=== PATIENT | female | born 1940 | race Caucasian/White ===

== ENCOUNTER 2022-05-23 06:00 | Emergency (ER) | payer MEDICARE, BC, SELFPAY ==
[2022-05-23] VITALS (22 sets, daily range): BP systolic 164–199; BP diastolic 108–147; PULSE 64–104; RESP 16–18; TEMP 36.7; O2SAT 94–97; BMI 18.8
--- NOTE | 2022-05-23 06:41 | CRLHL7_ITS ---
For Patients: As a result of the Cures Act, medical imaging exams and procedure reports are released immediately into your electronic medical record. You may view this report before your referring provider. If you have questions, please contact your health care provider. HISTORY: Chest discomfort. TECHNIQUE: Two views of the chest. COMPARISON: 10/20/2018. FINDINGS: Sternotomy and valve replacement. Probable COPD. No acute lung infiltrate or pulmonary edema. No pneumothorax or pleural effusion. Cardiac size mildly prominent but unchanged. No pulmonary vascular congestion. There are degenerative changes of the spine. IMPRESSION: 1. COPD. 2. No acute lung infiltrate or pulmonary edema. Dictated by Titus Recinos MD @ 05/23/2022 7:25:52 AM Dictated by: Titus Recions MD @ 05/23/2022 07:25:56 (Electronically Signed)
--- NOTE | 2022-05-23 06:47 | ED.ARRPALP ---
HPI - Arrhythmia/Palpitations General Date Seen: 05/23/22 <Estuardo Kahn MD - Last Filed: 05/24/22 21:18> Chief Complaint: Arrhythmia/Palpitations <Estuardo Kahn MD - Last Filed: 05/24/22 21:18> Stated Complaint: Heart palpitations <Estuardo Kahn MD - Last Filed: 05/24/22 21:18> Time Seen by Provider: 05/23/22 06:01 <Estuardo Kahn MD - Last Filed: 05/24/22 21:18> Source: patient <Estuardo Kahn MD - Last Filed: 05/24/22 21:18> Mode of arrival: ambulatory <Estuardo Kahn MD - Last Filed: 05/24/22 21:18> Limitations: no limitations <Estuardo Kahn MD - Last Filed: 05/24/22 21:18> History of Present Illness HPI narrative: Patient is a delightful 81-year-old female who presents here with her for evaluation of a feeling of palpitations and discomfort across her chest she has have for the past hour. She woke up with this this morning, this was atypical for her and she took her morning lisinopril along with 81 mg of aspirin, it persisted than she thought she should come to the hospital she has not noted her pulse is been faster, she did not feel like she might pass out, she does not really have chest pain per se, just a different feeling. She has no coughing wheezing shortness of breath associated with this no fevers chills or sweats also, she has no nausea or sweating also. No past history of any atherosclerotic heart disease she does have a history of aortic valve repair in 2010 and has bovine valve. Known atrial fibrillation per her chart, <Estuardo Kahn MD - Last Filed: 05/24/22 21:18> Duration: constant <Estuardo Kahn MD - Last Filed: 05/24/22 21:18> Severity: mild <Estuardo Kahn MD - Last Filed: 05/24/22 21:18> Context: occurred during rest <Estuardo Kahn MD - Last Filed: 05/24/22 21:18> Associated symptoms: denies other symptoms <Estuardo Kahn MD - Last Filed: 05/24/22 21:18> Related Data Home Medications: Home Medications Medication Instructions Recorded Confirmed aspirin 81 mg tablet,delayed 81 mg PO BID 05/23/22 05/23/22 release (Adult Aspirin Regimen) atorvastatin 10 mg tablet 10 mg PO ONCE 05/23/22 05/23/22 azithromycin 250 mg tablet 500 mg PO PRN 05/23/22 05/23/22 glucosamine-chondroitin 500 mg-400 2 tab PO DAILY 05/23/22 05/23/22 mg tablet (Cosamin DS) lisinopril 10 mg tablet 10 mg PO BID 05/23/22 05/23/22 raloxifene 60 mg tablet 60 mg PO DAILY 05/23/22 05/23/22 Previous Rx's Medication Instructions Recorded apixaban 5 mg (74 tabs) tablets in See Rx Instructions PO .COMPLEX 05/23/22 a dose pack (EliquPenana DVT-PE Treat #74 ea 30D Start) <Estuardo Kahn MD - Last Filed: 05/24/22 21:18> Allergies/Adverse Reactions: Allergies Allergy/AdvReac Type Severity Reaction Status Date / Time amoxicillin AdvReac Rash Verified 05/23/22 06:24 cefuroxime [From Ceftin] AdvReac Hives Verified 05/23/22 06:24 Cephalosporins AdvReac Hives Verified 05/23/22 06:24 diatrizoate meglumine AdvReac itching Verified 05/23/22 06:24 doxycycline AdvReac Nausea Verified 05/23/22 06:24 gadodiamide AdvReac itching Verified 05/23/22 06:24 latex AdvReac Verified 05/23/22 06:17 penicillin V AdvReac Rash Verified 05/23/22 06:24 contrast dye AdvReac Uncoded 05/23/22 06:17 <Estuardo Kahn MD - Last Filed: 05/24/22 21:18> Review of Systems Status of ROS: Reports: 10 or more systems reviewed and unremarkable except as noted in History and below <Estuardo Kahn MD - Last Filed: 05/24/22 21:18> [facility] Medical History: Medical History Aortic stenosis Arthritis Atrial fibrillation Bicuspid aortic valve Colonic polyp HTN (hypertension) <Estuardo Kahn MD - Last Filed: 05/24/22 21:18> Surgical History: Surgical History Aortic valve replaced H/O vein stripping Hx of tonsillectomy Status post ORIF of fracture of ankle <Estuardo Kahn MD - Last Filed: 05/24/22 21:18> Social History: Social History Smoking Status: Never smoker How often do you have a drink containing alcohol: never AUDIT-C Alcohol total score: 0 Non-prescribed substance use: denies use <Estuardo Kahn MD - Last Filed: 05/24/22 21:18> Exam Narrative: Exam Narrative: Patient is seen in room 8 she is wearing a toque, delightful, Patient is speaking normally, no problem with slurring words, oriented x3. Head eyes ears nose and throat exam show equal pupils, no scleral icterus, extraocular muscles are normal, no facial droop, speech is normal, trachea normal and midline. Thyroid normal midline palpable not enlarged. Chest shows symmetrical rise bilaterally, normal auscultation with no wheezes, no increased work of breathing, no overt bruising or lesions seen, no tenderness is noted on auscultation. Heart sounds abnormal with a regular pulse but controlled ventricular rate. no S3-S4, there is murmur, it appears to be along the sternal border. Diastolic 1/6 , no clicks or gallops. Abdomen shows no obvious masses or hepatosplenomegaly, no organomegaly, bowel sounds are normal in all quadrants. No tenderness is noted also in all quadrants. Upper and lower extremities show normal power, normal range of motion, pulses are normal, sensations normal, fine motor movements are normal, pelvis is stable to rocking. Cervical spine shows normal range of motion, and palpably not tender. Thoracic spine shows normal range of motion, and palpably not tender, lumbar spine shows no tenderness to palpation percussion and is otherwise normal range of motion. Skin shows no rashes, petechiae or eccymosis. <Estuardo Kahn MD - Last Filed: 05/24/22 21:18> Const: Vital Signs, click to edit/add: Vital Signs - 24 hr 05/23/22 06:14 05/23/22 06:36 05/23/22 06:50 Temperature 98.0 F Pulse Rate 72 92 Pulse Rate [Left P ulse Oximeter] 76 Respiratory Rate 16 Blood Pressure Blood Pressure [Ri ght Upper Arm] 183/108 H Pulse Oximetry 96 96 95 Oxygen Delivery Me thod Room Air 05/23/22 06:54 05/23/22 07:00 05/23/22 07:01 Temperature Pulse Rate 87 72 76 Pulse Rate [Left P ulse Oximeter] Respiratory Rate Blood Pressure 199/147 H 180/133 H Blood Pressure [Ri ght Upper Arm] Pulse Oximetry 97 96 94 Oxygen Delivery Me thod <Estuardo Kahn MD - Last Filed: 05/24/22 21:18> Vital Signs, click to edit/add: Vital Signs - 24 hr 05/23/22 06:14 05/23/22 06:36 05/23/22 06:50 Temperature 98.0 F Pulse Rate 72 92 Pulse Rate [Left P ulse Oximeter] 76 Respiratory Rate 16 Blood Pressure Blood Pressure [Ri ght Upper Arm] 183/108 H Pulse Oximetry 96 96 95 Oxygen Delivery Me thod Room Air 05/23/22 06:54 05/23/22 07:00 05/23/22 07:01 Temperature Pulse Rate 87 72 76 Pulse Rate [Left P ulse Oximeter] Respiratory Rate Blood Pressure 199/147 H 180/133 H Blood Pressure [Ri ght Upper Arm] Pulse Oximetry 97 96 94 Oxygen Delivery Me thod <Michi Chaidez MD - Last Filed: 05/23/22 10:15> Documenting provider has reviewed patient's vital signs: yes <Estuardo Kahn MD - Last Filed: 05/24/22 21:18> Common normals: no apparent distress <Estuardo Kahn MD - Last Filed: 05/24/22 21:18> Course Vital Signs Vital signs: Initial Vital Signs Temperature 98.0 F 05/23/22 06:14 Temperature Source Temporal Artery Scan 05/23/22 06:14 Pulse Rate 76 05/23/22 06:14 Pulse Rhythm 05/23/22 06:14 Respiratory Rate 16 05/23/22 06:14 Blood Pressure 183/108 H 05/23/22 06:14 Blood Pressure Mean 133 05/23/22 06:14 Blood Pressure Position Supine 05/23/22 06:14 Pulse Oximetry 96 05/23/22 06:14 Oxygen Delivery Method 05/23/22 06:14 Vital Signs Temperature 98.0 F 05/23/22 06:14 Pulse Rate 76 05/23/22 06:14 Respiratory Rate 16 05/23/22 06:14 Blood Pressure 183/108 H 05/23/22 06:14 Pulse Oximetry 96 05/23/22 06:14 Oxygen Delivery Method 05/23/22 06:14 Temperature 98.0 F 05/23/22 06:14 Pulse Rate 76 05/23/22 10:02 Respiratory Rate 18 05/23/22 09:30 Blood Pressure 172/121 H 05/23/22 10:02 Pulse Oximetry 97 05/23/22 10:02 Oxygen Delivery Method 05/23/22 09:30 <Estuardo Kahn MD - Last Filed: 05/24/22 21:18> Initial Vital Signs Temperature 98.0 F 05/23/22 06:14 Temperature Source Temporal Artery Scan 05/23/22 06:14 Pulse Rate 76 05/23/22 06:14 Pulse Rhythm 05/23/22 06:14 Respiratory Rate 16 05/23/22 06:14 Blood Pressure 183/108 H 05/23/22 06:14 Blood Pressure Mean 133 05/23/22 06:14 Blood Pressure Position Supine 05/23/22 06:14 Pulse Oximetry 96 05/23/22 06:14 Oxygen Delivery Method 05/23/22 06:14 Vital Signs Temperature 98.0 F 05/23/22 06:14 Pulse Rate 76 05/23/22 06:14 Respiratory Rate 16 05/23/22 06:14 Blood Pressure 183/108 H 05/23/22 06:14 Pulse Oximetry 96 05/23/22 06:14 Oxygen Delivery Method 05/23/22 06:14 Temperature 98.0 F 05/23/22 06:14 Pulse Rate 76 05/23/22 10:02 Respiratory Rate 18 05/23/22 09:30 Blood Pressure 172/121 H 05/23/22 10:02 Pulse Oximetry 97 05/23/22 10:02 Oxygen Delivery Method 05/23/22 09:30 <Michi Chaidez MD - Last Filed: 05/23/22 10:15> MDM - Arrhythmia/Palpitations MDM Narrative Medical decision making narrative: During the evaluation of this patient I considered multiple differential diagnosis is. The life-threatening differential diagnosis include coronary disease/CA, pulmonary embolism, pneumothorax, pneumonia, and aortic dissection. Other differential diagnosis included but were not limited to pericarditis, myocarditis, chest wall pain, GERD, esophageal rupture, rib fracture contusion, pleurisy, as well as other etiologies. Chads 2 score is 4 <Estuardo Kahn MD - Last Filed: 05/24/22 21:18> During the evaluation of this patient I considered multiple differential diagnosis is. The life-threatening differential diagnosis include coronary disease/CA, pulmonary embolism, pneumothorax, pneumonia, and aortic dissection. Other differential diagnosis included but were not limited to pericarditis, myocarditis, chest wall pain, GERD, esophageal rupture, rib fracture contusion, pleurisy, as well as other etiologies. Chads 2 score is 4 Care for this patient was transferred to ct at the end of Dr. Kahn's shift. Repeat troponin returns negative. This patient is in chronic atrial fibrillation but is not on any anticoagulant therapy. Her rate is controlled. She is not on any rate controlling medications and may need this if she does have rapid ventricular response. I discussed options for anticoagulation and the patient prefers to take Eliquis. This was prescribed for her. She is okay to return home to continue current plans. Dr. Efrain Chaidez <Michi Chaidez MD - Last Filed: 05/23/22 10:15> Medical Records Attestation: I reviewed the patient's medical records. <Estuardo Kahn MD - Last Filed: 05/24/22 21:18> Lab Data Attestation: I reviewed the patient's lab results. <Estuardo Kahn MD - Last Filed: 05/24/22 21:18> Labs: Lab Results 05/23/22 05/23/22 05/23/22 Range/Units 06:41 06:55 06:55 WBC 7.25 (4.50-11.00) K/uL RBC 4.87 (4.00-5.20) m/uL Hgb 14.6 (12.0-16.0) gm/dL Hct 45.1 (33.0-51.0) % MCV 93 (80-100) fL MCH 30 (26-34) pg MCHC 32 (32-36) gm/dL RDW Coeff of Shawn 13.1 (11.5-15.5) % Plt Count 167 (140-440) K/uL Neut % (Auto) 72.5 H (42.0-72.0) % Lymph % (Auto) 17.5 L (20-44) % [place] % (Auto) 6.9 (0.0-11.0) % Eos % (Auto) 2.2 (0.0-7.0) % Baso % (Auto) 0.6 (0.0-3.0) % Neut # (Auto) 5.30 (1.7-7.0) K/uL Lymph # (Auto) 1.30 (0.90-2.90) K/uL [place] # (Auto) 0.50 (0.00-0.90) K/UL Eos # (Auto) 0.16 (0.00-0.50) K/uL Baso # (Auto) 0.04 (0.00-0.30) K/uL INR (0.91-1.10) APTT (23-33) Seconds Sodium Cancelled Potassium Cancelled Chloride Cancelled Carbon Dioxide Cancelled BUN Cancelled Creatinine Cancelled Estimated Creat Clear Cancelled Estimated GFR Cancelled Glucose Cancelled Calcium Cancelled NT-Pro-B Natriuret Pep pg/mL Ethyl Alcohol (0.01-0.03) % SARS-CoV-2 (PCR) (Negative) Influenza Type A (PCR) (Negative) Influenza Type B (PCR) (Negative) RSV (PCR) (Negative) POC Troponin I 0.00 L (0.01-0.04) ng/ml 05/23/22 05/23/22 05/23/22 Range/Units 06:55 06:55 06:55 WBC (4.50-11.00) K/uL RBC (4.00-5.20) m/uL Hgb (12.0-16.0) gm/dL Hct (33.0-51.0) % MCV (80-100) fL MCH (26-34) pg MCHC (32-36) gm/dL RDW Coeff of Shawn (11.5-15.5) % Plt Count (140-440) K/uL Neut % (Auto) (42.0-72.0) % Lymph % (Auto) (20-44) % [place] % (Auto) (0.0-11.0) % Eos % (Auto) (0.0-7.0) % Baso % (Auto) (0.0-3.0) % Neut # (Auto) (1.7-7.0) K/uL Lymph # (Auto) (0.90-2.90) K/uL [place] # (Auto) (0.00-0.90) K/UL Eos # (Auto) (0.00-0.50) K/uL Baso # (Auto) (0.00-0.30) K/uL INR 1.02 (0.91-1.10) APTT 29 (23-33) Seconds Sodium 139 Potassium 3.8 Chloride 106 Carbon Dioxide 28 BUN 15 Creatinine 0.7 Estimated Creat Clear 32.92 Estimated GFR 86 Glucose 93 Calcium 9.4 NT-Pro-B Natriuret Pep 778 pg/mL Ethyl Alcohol < 0.01 L (0.01-0.03) % SARS-CoV-2 (PCR) Negative SARS-CoV-2 (Negative) Influenza Type A (PCR) Negative PCR FLU A (Negative) Influenza Type B (PCR) Negative PCR FLU B (Negative) RSV (PCR) Negative PCR RSV (Negative) POC Troponin I (0.01-0.04) ng/ml 05/23/22 Range/Units 08:40 WBC (4.50-11.00) K/uL RBC (4.00-5.20) m/uL Hgb (12.0-16.0) gm/dL Hct (33.0-51.0) % MCV (80-100) fL MCH (26-34) pg MCHC (32-36) gm/dL RDW Coeff of Shawn (11.5-15.5) % Plt Count (140-440) K/uL Neut % (Auto) (42.0-72.0) % Lymph % (Auto) (20-44) % [place] % (Auto) (0.0-11.0) % Eos % (Auto) (0.0-7.0) % Baso % (Auto) (0.0-3.0) % Neut # (Auto) (1.7-7.0) K/uL Lymph # (Auto) (0.90-2.90) K/uL [place] # (Auto) (0.00-0.90) K/UL Eos # (Auto) (0.00-0.50) K/uL Baso # (Auto) (0.00-0.30) K/uL INR (0.91-1.10) APTT (23-33) Seconds Sodium Potassium Chloride Carbon Dioxide BUN Creatinine Estimated Creat Clear Estimated GFR Glucose Calcium NT-Pro-B Natriuret Pep pg/mL Ethyl Alcohol (0.01-0.03) % SARS-CoV-2 (PCR) (Negative) Influenza Type A (PCR) (Negative) Influenza Type B (PCR) (Negative) RSV (PCR) (Negative) POC Troponin I 0.01 (0.01-0.04) ng/ml <Estuardo Kahn MD - Last Filed: 05/24/22 21:18> Lab Results 05/23/22 05/23/22 05/23/22 Range/Units 06:41 06:55 06:55 WBC 7.25 (4.50-11.00) K/uL RBC 4.87 (4.00-5.20) m/uL Hgb 14.6 (12.0-16.0) gm/dL Hct 45.1 (33.0-51.0) % MCV 93 (80-100) fL MCH 30 (26-34) pg MCHC 32 (32-36) gm/dL RDW Coeff of Shawn 13.1 (11.5-15.5) % Plt Count 167 (140-440) K/uL Neut % (Auto) 72.5 H (42.0-72.0) % Lymph % (Auto) 17.5 L (20-44) % [place] % (Auto) 6.9 (0.0-11.0) % Eos % (Auto) 2.2 (0.0-7.0) % Baso % (Auto) 0.6 (0.0-3.0) % Neut # (Auto) 5.30 (1.7-7.0) K/uL Lymph # (Auto) 1.30 (0.90-2.90) K/uL [place] # (Auto) 0.50 (0.00-0.90) K/UL Eos # (Auto) 0.16 (0.00-0.50) K/uL Baso # (Auto) 0.04 (0.00-0.30) K/uL INR (0.91-1.10) APTT (23-33) Seconds Sodium Cancelled Potassium Cancelled Chloride Cancelled Carbon Dioxide Cancelled BUN Cancelled Creatinine Cancelled Estimated Creat Clear Cancelled Estimated GFR Cancelled Glucose Cancelled Calcium Cancelled NT-Pro-B Natriuret Pep pg/mL Ethyl Alcohol (0.01-0.03) % SARS-CoV-2 (PCR) (Negative) Influenza Type A (PCR) (Negative) Influenza Type B (PCR) (Negative) RSV (PCR) (Negative) POC Troponin I 0.00 L (0.01-0.04) ng/ml 05/23/22 05/23/22 05/23/22 Range/Units 06:55 06:55 06:55 WBC (4.50-11.00) K/uL RBC (4.00-5.20) m/uL Hgb (12.0-16.0) gm/dL Hct (33.0-51.0) % MCV (80-100) fL MCH (26-34) pg MCHC (32-36) gm/dL RDW Coeff of Shawn (11.5-15.5) % Plt Count (140-440) K/uL Neut % (Auto) (42.0-72.0) % Lymph % (Auto) (20-44) % [place] % (Auto) (0.0-11.0) % Eos % (Auto) (0.0-7.0) % Baso % (Auto) (0.0-3.0) % Neut # (Auto) (1.7-7.0) K/uL Lymph # (Auto) (0.90-2.90) K/uL [place] # (Auto) (0.00-0.90) K/UL Eos # (Auto) (0.00-0.50) K/uL Baso # (Auto) (0.00-0.30) K/uL INR 1.02 (0.91-1.10) APTT 29 (23-33) Seconds Sodium 139 Potassium 3.8 Chloride 106 Carbon Dioxide 28 BUN 15 Creatinine 0.7 Estimated Creat Clear 32.92 Estimated GFR 86 Glucose 93 Calcium 9.4 NT-Pro-B Natriuret Pep 778 pg/mL Ethyl Alcohol < 0.01 L (0.01-0.03) % SARS-CoV-2 (PCR) Negative SARS-CoV-2 (Negative) Influenza Type A (PCR) Negative PCR FLU A (Negative) Influenza Type B (PCR) Negative PCR FLU B (Negative) RSV (PCR) Negative PCR RSV (Negative) POC Troponin I (0.01-0.04) ng/ml 05/23/22 Range/Units 08:40 WBC (4.50-11.00) K/uL RBC (4.00-5.20) m/uL Hgb (12.0-16.0) gm/dL Hct (33.0-51.0) % MCV (80-100) fL MCH (26-34) pg MCHC (32-36) gm/dL RDW Coeff of Shawn (11.5-15.5) % Plt Count (140-440) K/uL Neut % (Auto) (42.0-72.0) % Lymph % (Auto) (20-44) % [place] % (Auto) (0.0-11.0) % Eos % (Auto) (0.0-7.0) % Baso % (Auto) (0.0-3.0) % Neut # (Auto) (1.7-7.0) K/uL Lymph # (Auto) (0.90-2.90) K/uL [place] # (Auto) (0.00-0.90) K/UL Eos # (Auto) (0.00-0.50) K/uL Baso # (Auto) (0.00-0.30) K/uL INR (0.91-1.10) APTT (23-33) Seconds Sodium Potassium Chloride Carbon Dioxide BUN Creatinine Estimated Creat Clear Estimated GFR Glucose Calcium NT-Pro-B Natriuret Pep pg/mL Ethyl Alcohol (0.01-0.03) % SARS-CoV-2 (PCR) (Negative) Influenza Type A (PCR) (Negative) Influenza Type B (PCR) (Negative) RSV (PCR) (Negative) POC Troponin I 0.01 (0.01-0.04) ng/ml <Michi Chaidez MD - Last Filed: 05/23/22 10:15> ECG Data Attestation: I personally reviewed and interpreted this ECG as follows: <Estuardo Kahn MD - Last Filed: 05/24/22 21:18> ECG interpretation date: 05/23/22 <Estuardo Kahn MD - Last Filed: 05/24/22 21:18> ECG interpretation time: 07:02 <Estuardo Kahn MD - Last Filed: 05/24/22 21:18> Prior ECG tracings: available for review <Estuardo Kahn MD - Last Filed: 05/24/22 21:18> Interpretation: Atrial fibrillation, with occasional PVCs, ventricular rate controlled at 73, no acute ST wave changes in review from previous EKG I can see from 2018 where the rhythm was sinus, rhythm is changed to atrial fibrillation. <Estuardo Kahn MD - Last Filed: 05/24/22 21:18> Discharge Plan Discharge Clinical Impression: Atrial fibrillation <Estuardo Kahn MD - Last Filed: 05/24/22 21:18> Patient Disposition: Home w/ Parent or Adult <Estuardo Kahn MD - Last Filed: 05/24/22 21:18> Condition: Stable <Estuardo Kahn MD - Last Filed: 05/24/22 21:18> Additional Instructions: Take medication as prescribed. Follow up with MD as needed. Return if worsening symptoms occur. <Estuardo Kahn MD - Last Filed: 05/24/22 21:18> Prescriptions: New Eliquis DVT-PE Treat 30D Start 5 mg (74 tabs) tablets,dose pack See Rx Instructions PO .COMPLEX Qty: 74 0RF Rx Instructions: orally per package directions No Action aspirin [Adult Aspirin Regimen] 81 mg tablet,delayed release (DR/EC) 81 mg PO BID atorvastatin 10 mg tablet 10 mg PO ONCE Label Comments: TAKE ONE TABLET BY MOUTH ONE TIME DAILY azithromycin 250 mg tablet 500 mg PO PRN Rx Instructions: 30-60 mins prior to dental procedure lisinopril 10 mg tablet 10 mg PO BID Label Comments: TAKE 1.5 TABLETS BY MOUTH IN MORNING AND 1 TABLET IN EVENING raloxifene 60 mg tablet 60 mg PO DAILY Label Comments: TAKE ONE TABLET BY MOUTH ONE TIME DAILY glucosamine-chondroitin [Cosamin DS] 500-400 mg tablet 2 tab PO DAILY <Estuardo Kahn MD - Last Filed: 05/24/22 21:18> Follow Up/Referrals: Frannie Allison MD [Primary Care Provider] - <Estuardo Kahn MD - Last Filed: 05/24/22 21:18> Stand Alone Forms: MyHealth Info Instructions <Estuardo Kahn MD - Last Filed: 05/24/22 21:18>
[2022-05-23] MEDS: 0.9 % SODIUM CHLORIDE 500 ML 500 ML IV (06:57)
[2022-05-23] MEDS: ASPIRIN 81 MG TABLET EC PO (06:58)
[2022-05-23] MEDS: ASPIRIN 81 MG TAB.CHEW 162 MG PO (06:58)
[2022-05-23 07:17] LABS: Basophils Absolute Auto 0.04 K/uL (0.00-0.30); Basophils Percent Auto 0.6 % (0.0-3.0); Eosinophils Absolute Auto 0.16 K/uL (0.00-0.50); Eosinophils Percent Auto 2.2 % (0.0-7.0); Hematocrit 45.1 % (33.0-51.0); Hemoglobin* 14.6 gm/dL (12.0-16.0); Immature Granulocytes Abs Auto 0.02 K/uL (0.00-0.30); Immature Granulocytes Pct Auto 0.3 %; Lymphocytes Percent Auto 17.5 % (20-44); Mean Corpuscular HGB Conc 32 gm/dL (32-36); Mean Corpuscular Hemoglobin 30 pg (26-34); Mean Corpuscular Volume 93 fL (80-100); Monocytes Percent Auto 6.9 % (0.0-11.0); Neutrophils Percent Auto 72.5 % (42.0-72.0); Platelet Count* 167 K/uL (140-440); RDW Coefficient of Variation % 13.1 % (11.5-15.5); Red Blood Count 4.87 m/uL (4.00-5.20); White Blood Count* 7.25 K/uL (4.50-11.00)
[2022-05-23 07:20] LABS: Chloride* 106 mmol/L (96-114); Potassium* 3.8 mmol/L (3.6-5.1); Sodium* 139 mmol/L (135-149)
[2022-05-23 07:22] LABS: Creatinine* 0.7 mg/dL (0.5-1.5); Est. Creatinine Clearance* 32.92; Estimated Glomerular Filt Rate 86 ml/min
[2022-05-23 07:23] LABS: Blood Urea Nitrogen* 15 mg/dL (7-30); Calcium* 9.4 mg/dL (8.4-10.6); Carbon Dioxide* 28 mmol/L (20-32); Glucose* 93 mg/dL (60-115)
[2022-05-23 07:32] LABS: INR 1.02 (0.91-1.10)
[2022-05-23 07:33] LABS: Ethanol* < 0.01 % (0.01-0.03); NT Pro B Type NatriureticPept* 778 pg/mL; Partial Thromboplastin Time* 29 Seconds (23-33)
[2022-05-23 07:55] LABS: Slide Review Reflex No
[2022-05-23 08:28] LABS: PCR FLU A Negative PCR FLU A (Negative); PCR FLU B Negative PCR FLU B (Negative); PCR RSV Negative PCR RSV (Negative)
[2022-05-23 08:30] LABS: SARS PCR* Negative SARS-CoV-2 (Negative)
[2022-05-23 09:25] LABS: Troponin, Point-of-Care* 0.01 ng/ml (0.01-0.04)
== END 2022-05-23 10:30 | disposition home or self-care (01) ==
PROVIDERS: Emergency Provider Family Medicine; PCP Family Medicine
DX: I48.20 Chronic atrial fibrillation, unspecified (principal)
CPT/HCPCS: 36415; 71046; 80048; 82077; 83880; 84484; 85025; 85610; 85730; 87502; 87634; 87635; 93005; 99284; 99285; A9270; J7120

== ENCOUNTER 2022-10-04 06:21 | Emergency (ER) | payer MEDICARE, BC, SELFPAY ==
[2022-10-04 06:24] VITALS: BP 139/102; PULSE 92; RESP 16; TEMP 36.3; O2SAT 95
--- NOTE | 2022-10-04 06:45 | ED.GENADULT ---
HPI - General Adult General Time Seen by Provider: 06:45 Date Seen: 10/04/22 Chief complaint: Weakness Stated complaint: weakness/pneumonia Time Seen by Provider: 10/04/22 06:45 Source: patient, family, RN notes reviewed and old records reviewed Mode of arrival: ambulatory Limitations: no limitations History of Present Illness HPI narrative: 82-year-old female who comes in today with generalized weakness. Reports congestion and cough which is been going on for several days, reports increased weakness over the last week or so. Spouse about 1 week ago. Denies chest pain, shortness of breath, nausea, vomiting, diarrhea, urinary symptoms. No focal weakness, no falls. Reports decreased appetite over the last couple of days as well. Related Data Home Medications Medication Instructions Recorded Confirmed aspirin 81 mg tablet,delayed 81 mg PO BID 05/23/22 05/23/22 release (Adult Aspirin Regimen) atorvastatin 10 mg tablet 10 mg PO ONCE 05/23/22 05/23/22 azithromycin 250 mg tablet 500 mg PO PRN 05/23/22 05/23/22 glucosamine-chondroitin 500 mg-400 2 tab PO DAILY 05/23/22 05/23/22 mg tablet (Cosamin DS) lisinopril 10 mg tablet 10 mg PO BID 05/23/22 05/23/22 raloxifene 60 mg tablet 60 mg PO DAILY 05/23/22 05/23/22 Previous Rx's Medication Instructions Recorded apixaban 5 mg (74 tabs) tablets in See Rx Instructions PO .COMPLEX 05/23/22 a dose pack (Eliquis DVT-PE Treat #74 ea 30D Start) Allergies Allergy/AdvReac Type Severity Reaction Status Date / Time amoxicillin AdvReac Rash Verified 05/23/22 06:24 cefuroxime [From Ceftin] AdvReac Hives Verified 05/23/22 06:24 Cephalosporins AdvReac Hives Verified 05/23/22 06:24 diatrizoate meglumine AdvReac itching Verified 05/23/22 06:24 doxycycline AdvReac Nausea Verified 05/23/22 06:24 gadodiamide AdvReac itching Verified 05/23/22 06:24 latex AdvReac Verified 05/23/22 06:17 penicillin V AdvReac Rash Verified 05/23/22 06:24 contrast dye AdvReac Uncoded 05/23/22 06:17 PFSH PFSH Medical History Aortic stenosis Arthritis Atrial fibrillation Bicuspid aortic valve Colonic polyp HTN (hypertension) Surgical History Aortic valve replaced H/O vein stripping Hx of tonsillectomy Status post ORIF of fracture of ankle Social History Smoking Status: Never smoker How often do you have a drink containing alcohol: never AUDIT-C Alcohol total score: 0 Non-prescribed substance use: denies use Exam Narrative: Exam Narrative: General: Well-developed and well-nourished, no acute distress Head: Atraumatic and normocephalic Eyes: Pupils are equal reactive, extraocular motions intact, conjunctiva clear ENT: External nose and ears are normal, posterior pharynx without erythema or exudate Neck: No midline cervical tenderness, full spontaneous range of motion the neck, trachea midline, no adenopathy Heart: Regular rate and rhythm 4/6 systolic murmur Lungs: Clear to auscultation bilaterally without wheezes or crackles Abdomen: Soft, nontender, nondistended with active bowel sounds Musculoskeletal: No tenderness, deformity, or edema Neurologic: Awake, alert, and oriented x3, no gross focal neurologic deficits, cranial nerves intact as tested Psych: Mood and affect are appropriate Skin: No rashes Const: Vital Signs, click to edit/add: Vital Signs - 24 hr 10/04/22 06:24 Temperature 97.3 F L Pulse Rate [Left P ulse Oximeter] 92 Respiratory Rate 16 Blood Pressure [Ri ght Upper Arm] 139/102 H Pulse Oximetry 95 Oxygen Delivery Me thod Room Air Course Course Hospital Course: Patient seen and examined, prior records are reviewed. Patient reports generalized weakness today as well as some cough and congestion. On exam, no focal weakness, lungs are clear, no fever or shortness of breath. Symptoms are most likely related to decreased oral intake, possible upper respiratory infection, and stress/grief reaction. Labs ordered along with IV fluids. Reevaluation(s) Time of Reevaluation #1: 07:18 Reevaluation #1: X-ray independently interpreted by me demonstrates hyperinflation, none no other acute findings. Time of Reevaluation #2: 07:51 Reevaluation #2: Labs independently interpreted by me demonstrate mild hyponatremia, IV normal saline was given. Troponin negative, CBC reassuring with no evidence of leukocytosis or anemia. COVID in urinalysis are pending. Time of Reevaluation #3: 08:12 Reevaluation #3: Urine demonstrates trace blood and ketones. Patient recheck, discussed findings, diagnosis, and plan. COVID influenza are pending but patient is stable for discharge. Vital Signs Vital signs: Initial Vital Signs Temperature 97.3 F L 10/04/22 06:24 Temperature Source Temporal Artery Scan 10/04/22 06:24 Pulse Rate 92 10/04/22 06:24 Pulse Rhythm Regular 10/04/22 06:24 Respiratory Rate 16 10/04/22 06:24 Blood Pressure 139/102 H 10/04/22 06:24 Blood Pressure Mean 114 H 10/04/22 06:24 Blood Pressure Position Sitting 10/04/22 06:24 Pulse Oximetry 95 10/04/22 06:24 Oxygen Delivery Method Room Air 10/04/22 06:24 Vital Signs Temperature 97.3 F L 10/04/22 06:24 Pulse Rate 92 10/04/22 06:24 Respiratory Rate 16 10/04/22 06:24 Blood Pressure 139/102 H 10/04/22 06:24 Pulse Oximetry 95 10/04/22 06:24 Oxygen Delivery Method Room Air 10/04/22 06:24 Temperature 97.3 F L 10/04/22 06:24 Pulse Rate 92 10/04/22 06:24 Respiratory Rate 16 10/04/22 06:24 Blood Pressure 139/102 H 10/04/22 06:24 Pulse Oximetry 95 10/04/22 06:24 Oxygen Delivery Method Room Air 10/04/22 06:24 Medical Decision Making Lab Data Labs: Lab Results 10/04/22 10/04/22 10/04/22 Range/Units 06:49 07:00 07:45 WBC 7.79 (4.50-11.00) K/uL RBC 4.70 (4.00-5.20) m/uL Hgb 14.4 (12.0-16.0) gm/dL Hct 43.0 (33.0-51.0) % MCV 92 (80-100) fL MCH 31 (26-34) pg MCHC 34 (32-36) gm/dL RDW Coeff of Shawn 12.8 (11.5-15.5) % Plt Count 141 (140-440) K/uL Neut % (Auto) 81.0 H (42.0-72.0) % Lymph % (Auto) 7.7 L (20-44) % Bibb % (Auto) 10.7 (0.0-11.0) % Eos % (Auto) 0.0 (0.0-7.0) % Baso % (Auto) 0.3 (0.0-3.0) % Neut # (Auto) 6.30 (1.7-7.0) K/uL Lymph # (Auto) 0.60 L (0.90-2.90) K/uL Bibb # (Auto) 0.80 (0.00-0.90) K/UL Eos # (Auto) 0.00 (0.00-0.50) K/uL Baso # (Auto) 0.02 (0.00-0.30) K/uL Sodium 129 L (135-149) mmol/L Potassium 4.1 (3.6-5.1) mmol/L Chloride 93 L (96-114) mmol/L Carbon Dioxide 27 (20-32) mmol/L BUN 13 (7-30) mg/dL Creatinine 0.7 (0.5-1.5) mg/dL Estimated GFR 86 ml/min Glucose 119 H (60-115) mg/dL Calcium 9.1 (8.4-10.6) mg/dL Magnesium 1.8 (1.5-2.6) mg/dL NT-Pro-B Natriuret Pep 1210 pg/mL Urine Color Yellow (Yellow) Urine Appearance Clear (Clear) Urine pH 5.5 (5.0-8.5) Ur Specific [place] 1.025 (1.000-1.030) Urine Protein 1+ A (Negative) Urine Glucose (UA) Negative (Negative) Urine Ketones 2+ A (Negative) Urine Blood 1+ A (Negative) Urine Nitrite Negative (Negative) Urine Bilirubin Negative (Negative) Urine Urobilinogen 0.2 (0.2-1.0) Ur Leukocyte Esterase Negative (Negative) Urine RBC 2-5 A (0-2) Urine WBC 2-5 (0-5) Ur Squamous Epith Cells Few (None-Few) Urine Bacteria Few A (None) Urine Mucus Few A (None) POC Troponin I 0.01 (0.01-0.04) ng/ml ECG Data Attestation: I personally reviewed and interpreted this ECG as follows: Prior ECG tracings: available for review Interpretation: Performed at 7:21 a.m. demonstrates atrial fibrillation rate 82, diffuse ST depressions in 2, 3, AVF, V4 through V6 with slight nondiagnostic elevation in aVL, rate 82, QTC 448. Compared to prior of May 2022, no acute changes Discharge Plan Discharge Clinical Impression: History of recent stressful life event, Hyponatremia, Weakness Patient Disposition: Home w/ Parent or Adult Condition: Stable Instructions: Hyponatremia (ED), Weakness (ED) Activity Level: Activity as Tolerated Discharge Diet: Regular Prescriptions: No Action aspirin [Adult Aspirin Regimen] 81 mg tablet,delayed release (DR/EC) 81 mg PO BID atorvastatin 10 mg tablet 10 mg PO ONCE Patient Comments: TAKE ONE TABLET BY MOUTH ONE TIME DAILY azithromycin 250 mg tablet 500 mg PO PRN Rx Instructions: 30-60 mins prior to dental procedure lisinopril 10 mg tablet 10 mg PO BID Patient Comments: TAKE 1.5 TABLETS BY MOUTH IN MORNING AND 1 TABLET IN EVENING raloxifene 60 mg tablet 60 mg PO DAILY Patient Comments: TAKE ONE TABLET BY MOUTH ONE TIME DAILY glucosamine-chondroitin [Cosamin DS] 500-400 mg tablet 2 tab PO DAILY Eliquis DVT-PE Treat 30D Start 5 mg (74 tabs) tablets,dose pack See Rx Instructions PO .COMPLEX Qty: 74 0RF Rx Instructions: orally per package directions Follow Up/Referrals: Frannie Allison MD [Primary Care Provider] - Stand Alone Forms: [employer] Info Instructions
--- NOTE | 2022-10-04 06:47 | CRLHL7_ITS ---
For Patients: As a result of the Cures Act, medical imaging exams and procedure reports are released immediately into your electronic medical record. You may view this report before your referring provider. If you have questions, please contact your health care provider. INDICATION: cough, weakness TECHNIQUE: Chest 2 views. COMPARISON: None. FINDINGS: Cardiovascular and mediastinum: Mild cardiomegaly. Postoperative changes from median sternotomy and valve replacement. Lungs and pleural spaces: No focal consolidation. Hyperinflated lungs with interstitial prominence likely related to COPD. No sign of pleural effusion. No pneumothorax. Bones and soft tissues: No significant findings. IMPRESSION: No evidence of acute cardiopulmonary process. Dictated by Noah Rea MD @ 10/04/2022 8:02:56 AM (Electronically Signed)
[2022-10-04 07:19] LABS: Basophils Absolute Auto 0.02 K/uL (0.00-0.30); Basophils Percent Auto 0.3 % (0.0-3.0); Hemoglobin* 14.4 gm/dL (12.0-16.0); Immature Granulocytes Abs Auto 0.02 K/uL (0.00-0.30); Immature Granulocytes Pct Auto 0.3 %; Lymphocytes Percent Auto 7.7 % (20-44); Mean Corpuscular HGB Conc 34 gm/dL (32-36); Mean Corpuscular Hemoglobin 31 pg (26-34); Mean Corpuscular Volume 92 fL (80-100); Monocytes Percent Auto 10.7 % (0.0-11.0); Platelet Count* 141 K/uL (140-440); RDW Coefficient of Variation % 12.8 % (11.5-15.5); White Blood Count* 7.79 K/uL (4.50-11.00)
[2022-10-04 07:20] LABS: Troponin, Point-of-Care* 0.01 ng/ml (0.01-0.04)
[2022-10-04 07:23] LABS: Slide Review Reflex No
--- NOTE | 2022-10-04 07:29 | ED.NURSE ---
pt swabbed for covid
[2022-10-04 07:35] LABS: Chloride* 93 mmol/L (96-114); Potassium* 4.1 mmol/L (3.6-5.1); Sodium* 129 mmol/L (135-149)
[2022-10-04 07:37] LABS: Magnesium* 1.8 mg/dL (1.5-2.6)
[2022-10-04 07:38] LABS: Blood Urea Nitrogen* 13 mg/dL (7-30); Carbon Dioxide* 27 mmol/L (20-32); Creatinine* 0.7 mg/dL (0.5-1.5); Estimated Glomerular Filt Rate 86 ml/min
[2022-10-04 07:39] LABS: Glucose* 119 mg/dL (60-115)
[2022-10-04 07:47] LABS: NT Pro B Type NatriureticPept* 1210 pg/mL
[2022-10-04 07:49] LABS: Calcium* 9.1 mg/dL (8.4-10.6)
[2022-10-04 07:52] LABS: Appearance Urine Clear (Clear); Bilirubin Urine Negative (Negative); Blood Urine 1+ (Negative); Color Urine Yellow (Yellow); Glucose Urine Negative (Negative); Ketones Urine 2+ (Negative); Leukocyte Esterase Urine Negative (Negative); Nitrite Urine Negative (Negative); Protein Urine 1+ (Negative); Specific Gravity Urine 1.025 (1.000-1.030); Urobilinogen Urine 0.2 (0.2-1.0); pH Urine 5.5 (5.0-8.5)
[2022-10-04 08:01] LABS: Bacteria Urine Few; Mucus Urine Few; Squamous Epithelial Cell Urine Few (None-Few)
[2022-10-04 08:09] LABS: PCR FLU A Negative PCR FLU A (Negative); PCR FLU B Negative PCR FLU B (Negative)
[2022-10-04 08:18] LABS: SARS PCR* POSITIVE SARS-CoV-2 (Negative)
[2022-10-04 10:00] VITALS: BP 128/88; PULSE 90; RESP 18; O2SAT 95
--- NOTE | 2022-10-04 10:28 | ED.NURSE ---
dc teaching complete, assisted pt to get dressed. pt resting in bed until son returns.
--- NOTE | 2022-10-04 11:24 | ED.NURSE ---
son has arrived, he would prefer pt be admitted, him and family are very busy and not a good time for pt to get sick. continued to tell pt and son she is not a canidate for admission. pt up to br independent. son asks is there anything you can do to help. pt brought to son's vehicle via wheelchair.
== END 2022-10-04 11:45 | disposition home or self-care (01) ==
PROVIDERS: Emergency Provider Family Medicine; PCP Family Medicine
DX: E87.1 Hypo-osmolality and hyponatremia (principal); R53.1 Weakness
CPT/HCPCS: 36415; 71046; 80048; 81001; 83735; 83880; 84484; 85025; 87086; 87631; 93005; 99284; 99285

== ENCOUNTER 2022-12-01 09:30 | Outpatient (RCR) | payer MEDICARE, BC, SELFPAY ==
--- NOTE | 2022-11-17 12:10 | PT.OPEX ---
PT [facility] Eval PT [facility] Outpatient Eval Start: 11/17/22 08:06 Freq: Status: Active Protocol: Document 11/17/22 08:07 AGUSTINV (Rec: 11/17/22 11:16 KLV [id number]) E-signed By Laura Wakefield, PT Physical Therapy Outpatient Evaluation Insurance Information Recert Due Date 02/11/23 Insurance Name Medicare B,[employer] Medical Diagnosis Right knee primary osteoarthritis Treating Diagnosis Right knee pain, gross LE weakness, antalgic gait Referring Herminio Meyers Subjective Subjective Guadalupe reports to PT with primary complaint of gradual and insidious onset of right knee pain. 11/11/22: corticosteroid injection given and knee brace. Good response to steroid injection. She notes no pain with use of brace and improvement in knee alignment however limited with standing and walking without use of brace. Pain is more located in lateral aspect of knee and occasionally feels like knee will buckle without support of brace. She denies falls. Goals are to be able to do all her activities without brace including walking inside and outside, standing for extended periods, bending, squatting and rolling over in bed without knee pain. She would like to strengthen her knee to prevent it from caving in and prevent need for further injections. Imaging 10/28/22: Weightbearing AP, Lateral and Yale views of the right knee were obtained on 10/28/2022 from [facility], were ordered by another physician, were reviewed by me, and show no acute fractures, avulsions, or intraosseous pathology. No effusions. No signs of AVN . Moderate to severe lateral compartment osteoarthrosis with 90% joint space narrowing , and subchondral sclerosis. Minimal tricompartmental osteophytes. Otherwise, generalized osteopenia Pain Comments 1-2/10 worst Date of Last Physician Visit 11/11/22 Current Work Status Retired Objective Other/Pertinent Objective Knee ROM -R 0-128 -L 0-132 LE Strength (R/L): -Knee Ext: R: 4/5, L: 4+/5 -Knee Flex: R: 4+/5, L: 4+/5 -Hip Abd: R: 4-/5, L: 4/5 -Hip Add: R: 4/5, L: 4/5 -Hip Ext: R: 5/5, L: 5/5 -Hip Flx: R: 4/5, L: 4+/5 Gait: decreased stance time, genu valgus R LE, hip IR Balance: unable without UE support R LE Sit to stand: significant genu valgus positioning R LE, corrects with cuing Palpation: TTP lateral joint line Patellar mobility: WNL no pain Functional Test Performed & Score LEFS: 52/80 Assessment Assessment/Impression Patient is an 82 year old female presenting to physical therapy for evaluation and treatment of right knee pain with referring diagnosis of moderate to severe OA. Patient presents with gross LE weakness, antalgic gait, impaired transitions. These impairments are limiting the patients ability to walk/stand for extended periods, get up from a chair, squat/bend. Patient appears motivated to participate in PT and presents with good prognosis to improve mobility, strength, proprioception and return to functional activities with skilled physical therapy intervention. Primary Functional Limitations walk/stand for extended periods, get up from a chair, squat/bend Plan of Care Rehabilitation Potential Good Physical Therapy Goals In 6 weeks (12/29/22) Pt will be able to walk at least 15 min with minimal gait deviations with <1/10 knee pain in order to ambulate throughout home safely Patient will squat with pain levels < 2/10 displaying good control in order to carry out all ADLs and beef tagger I. In 10 weeks (01/26/23) Pt will exhibit 9 pt improvement in LEFS Outcome measure to demonstrate functional improvement and progress towards goals. Pt will demonstrate at least 4 +/5 strength MMT in glut max & glut med to improve dynamic control with SLS activities and gait. Pt will be able to walk at least 30 min with minimal gait deviations with <1/10 knee pain in order to ambulate throughout community safely Treatment Plan/Direct Interventions Gait Training,Ice/Cold/ Vasopneumatic,Joint Mobilization,Manual Therapy, Neuromuscular Re-ed,Self-Care/ Home Management,Therapeutic Activities,Therapeutic Exercises Frequency/Duration 1x/wk for 4 weeks with additional 4 sessions prn based on progress Patient Will Be Discharged From Therapy Completion of LTG(s), Independent w/HEP, Independently Progressing Evaluation Billing Untimed Code Treatment Minutes 28 Complexity Low Certification Information Initial Certification Date 11/17/22 Ending Certification Date 02/11/23 Provider Signature Shows Agreement With POC & Medical Necessity Physician Signature & Date Requested Please Sign/Date Here Physician Comment/Change : Physician NPI Number #
== END 2022-12-01 12:57 | disposition home or self-care (01) ==
PROVIDERS: PCP Family Medicine; Visit Provider Physician Assistant Surgical
DX: M17.11 Unilateral primary osteoarthritis, right knee (principal); R26.9 Unspecified abnormalities of gait and mobility; R53.1 Weakness; M25.561 Pain in right knee; Z51.89 Encounter for other specified aftercare
CPT/HCPCS: 97110; 97161

== ENCOUNTER 2023-05-01 10:46 | Emergency (ER) | payer MEDICARE, BC, SELFPAY ==
[2023-05-01 10:57] VITALS: BP 159/111; PULSE 78; RESP 22; TEMP 36.3; O2SAT 98; BMI 17.0
[2023-05-01 11:04] VITALS: BP 159/111; PULSE 72; RESP 16; O2SAT 99
--- NOTE | 2023-05-01 11:35 | ED.DIZZY ---
HPI - Dizziness General Chief Complaint: Dizziness/Vertigo Stated Complaint: Dizzy, nausea, suspected heart issue Time Seen by Provider: 05/01/23 10:50 History of Present Illness HPI Narrative: This 82-year-old female comes in reporting an episode of vertigo that came on rather suddenly a couple hours prior to arrival. She had some associated nausea and diaphoresis but did not have chest pain or unilateral weakness. There is no report of speech change. Her family member came over to assist her and now she comes in for evaluation. She states that she feels a little bit of symptoms but very minimal. She does have a history of a valve replacement and has chronic atrial fibrillation on Eliquis. She has had vertigo symptoms in the past. She does not describe any lightheadedness or shortness of breath. Related Data Home Medications Medication Instructions Recorded Confirmed aspirin 81 mg tablet,delayed 81 mg PO BID 05/23/22 11/11/22 release (Adult Aspirin Regimen) atorvastatin 10 mg tablet 10 mg PO ONCE 05/23/22 11/11/22 azithromycin 250 mg tablet 500 mg PO PRN 05/23/22 11/11/22 glucosamine-chondroitin 500 mg-400 2 tab PO DAILY 05/23/22 11/11/22 mg tablet (Cosamin DS) lisinopril 10 mg tablet 10 mg PO BID 05/23/22 11/11/22 raloxifene 60 mg tablet 60 mg PO DAILY 05/23/22 11/11/22 Previous Rx's Medication Instructions Recorded apixaban 5 mg (74 tabs) tablets in See Rx Instructions PO .COMPLEX 05/23/22 a dose pack (Eliquis DVT-PE Treat #74 ea 30D Start) Allergies Allergy/AdvReac Type Severity Reaction Status Date / Time gadodiamide Allergy Intermediate itching Verified 11/11/22 10:57 Cephalosporins Allergy Mild Hives Verified 11/11/22 10:57 penicillin V Allergy Mild Rash Verified 11/11/22 10:57 amoxicillin AdvReac Rash Verified 11/11/22 10:57 cefuroxime [From Ceftin] AdvReac Hives Verified 11/11/22 10:57 diatrizoate meglumine AdvReac itching Verified 11/11/22 10:57 doxycycline AdvReac Nausea Verified 11/11/22 10:57 latex AdvReac Verified 11/11/22 10:57 contrast dye AdvReac Uncoded 11/11/22 10:57 Review of Systems Status of ROS: Reports: 10 or more systems reviewed and unremarkable except as noted in History and below Narrative: Constitutional: No fevers. Eyes: No discharge. No vision changes. HENT: No congestion, no sore throat, no ear pain. Cardiovascular: No chest pain, no palpitations. Respiratory: No shortness of breath, no wheezes, no cough. Gastrointestinal: No abdominal pain, no vomiting, no diarrhea. Genitourinary: No dysuria, no hematuria. Musculoskeletal: Normal range of motion. Skin: No rashes, no pruritis. Neurological: No sensory change, speech change. She reports some generalized weakness. Vertigo symptoms as described above. Endo/Heme/Allergies: No bruising or bleeding. No polydipsia. Pysch: no suicidality, no anxiety, no insomnia. All other systems reviewed and are negative. [facility] Medical History Colonic polyp ?K63.5 - Polyp of colon (ICD-10) Atrial fibrillation ?I48.91 - Unspecified atrial fibrillation (ICD-10) HTN (hypertension) ?I10 - Essential (primary) hypertension (ICD-10) Bicuspid aortic valve ?Q23.1 - Congenital insufficiency of aortic valve (ICD-10) Arthritis ?M19.90 - Unspecified osteoarthritis, unspecified site (ICD-10) Aortic stenosis ?I35.0 - Nonrheumatic aortic (valve) stenosis (ICD-10) Surgical History H/O vein stripping ?Z98.890 - Other specified postprocedural states (ICD-10) Hx of tonsillectomy ?Z90.89 - Acquired absence of other organs (ICD-10) Status post ORIF of fracture of ankle (10/21/18) ?Z98.890 - Other specified postprocedural states (ICD-10) ?Z87.81 - Personal history of (healed) traumatic fracture (ICD-10) 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 - Presence of prosthetic heart valve (ICD-10) Social History Smoking Status: Never smoker Do you use any of these nicotine containing products: None Second hand tobacco smoke exposure: No How often do you have a drink containing alcohol: never How often do you have six or more drinks on one occasion: Never AUDIT-C Alcohol total score: 0 Non-prescribed substance use: denies use Exam Narrative: Exam Narrative: Constitutional: Well-developed, well-nourished, no acute distress. HEENT: Normocephalic, atraumatic. Neck: Normal range of motion. Nontender. Supple. Heart: Regular. No murmurs. Normal rate. Intact distal pulses. Lungs: Clear to auscultation. No chest discomfort. No wheezes, rhonchi, or rales. Abdomen: Normal bowel sounds. Nontender. No rebound tenderness. Genitalia: Deferred. Back: No midline tenderness. Normal range of motion. Extremities: Normal range of motion. No injury. Skin: Intact. No rash. Warm. No erythema or pallor. Neurologic: No altered sensation. No weakness. Alert and oriented. No nystagmus. No vertigo symptoms currently. No facial asymmetry. Tongue is midline. [id number] is normal. No pronator drift. [employer] strength is equal bilaterally. She is able to raise each leg to my hand. Psychiatric: No suicidality. No anxiety or depression. No insomnia. Nursing notes and vitals signs are reviewed. Const: Vital Signs, click to edit/add: Vital Signs - 24 hr 05/01/23 10:57 Temperature 97.3 F L Pulse Rate [Pulse Oximeter] 78 Respiratory Rate 22 Blood Pressure [Le ft Upper Arm] 159/111 H Pulse Oximetry 98 Oxygen Delivery Me thod Room Air Course Vital Signs Vital signs: Initial Vital Signs Temperature 97.3 F L 05/01/23 10:57 Temperature Source Temporal Artery Scan 05/01/23 10:57 Pulse Rate 78 05/01/23 10:57 Pulse Rhythm Irregular 05/01/23 10:57 Respiratory Rate 22 05/01/23 10:57 Blood Pressure 159/111 H 05/01/23 10:57 Blood Pressure Mean 127 H 05/01/23 10:57 Blood Pressure Position Supine 05/01/23 10:57 Pulse Oximetry 98 05/01/23 10:57 Oxygen Delivery Method Room Air 05/01/23 10:57 Vital Signs Temperature 97.3 F L 05/01/23 10:57 Pulse Rate 78 05/01/23 10:57 Respiratory Rate 22 05/01/23 10:57 Blood Pressure 159/111 H 05/01/23 10:57 Pulse Oximetry 98 05/01/23 10:57 Oxygen Delivery Method Room Air 05/01/23 10:57 Temperature 97.3 F L 05/01/23 10:57 Pulse Rate 78 05/01/23 10:57 Respiratory Rate 22 05/01/23 10:57 Blood Pressure 159/111 H 05/01/23 10:57 Pulse Oximetry 98 05/01/23 10:57 Oxygen Delivery Method Room Air 05/01/23 10:57 Medications Administered Medications: Discontinued Medications Generic Name Dose Route Start Last Admin Trade Name Jimq PRN Reason Stop Dose Admin Meclizine HCl 25 mg 05/01/23 11:34 05/01/23 11:41 Meclizine Hcl 25 Mg Tablet PO 05/01/23 11:35 25 mg ONCE ONE Administration Ondansetron HCl 4 mg 05/01/23 11:34 05/01/23 11:41 Ondansetron Odt 4 Mg Tab PO 05/01/23 11:35 4 mg ONCE ONE Administration MDM - Dizziness MDM Narrative Medical decision making narrative: This 82-year-old female comes in with symptoms of vertigo. Her symptoms have completely resolved. She did receive an oral dose of Zofran and meclizine. Her neurologic exam is not showing any unilateral symptoms and is completely normal. EKG shows atrial fibrillation which is not new for her. Labs are acquired and these returned also with reassuring findings. Her white count is slightly elevated but she does not have any fever and does not report any symptoms of an infection. I did discuss the role of CT or MRI imaging of her head but stated that her vertigo symptoms seem to be peripheral and not central. In a process of shared decision making no imaging studies were done at this time. The patient was able to get up and ambulate to the bathroom normally. She is okay to be discharged home. Lab Data Labs: Lab Results 05/01/23 Range/Units 11:44 WBC 14.43 H (4.50-11.00) K/uL RBC 5.01 (4.00-5.20) m/uL Hgb 15.0 (12.0-16.0) gm/dL Hct 46.7 (33.0-51.0) % MCV 93 (80-100) fL MCH 30 (26-34) pg MCHC 32 (32-36) gm/dL RDW Coeff of Shawn 13.0 (11.5-15.5) % Plt Count 163 (140-440) K/uL Neut % (Auto) 84.8 H (42.0-72.0) % Lymph % (Auto) 8.5 L (20-44) % [place] % (Auto) 5.9 (0.0-11.0) % Eos % (Auto) 0.3 (0.0-7.0) % Baso % (Auto) 0.2 (0.0-3.0) % Neut # (Auto) 12.20 H (1.7-7.0) K/uL Lymph # (Auto) 1.20 (0.90-2.90) K/uL [place] # (Auto) 0.90 (0.00-0.90) K/UL Eos # (Auto) 0.00 (0.00-0.50) K/uL Baso # (Auto) 0.00 (0.00-0.30) K/uL Abs Immat Gran (auto) 0.00 (0.00-0.30) K/uL Imm/Tot Granulo (auto) 0.3 % Sodium 137 (135-149) mmol/L Potassium 4.7 (3.6-5.1) mmol/L Chloride 102 (96-114) mmol/L Carbon Dioxide 28 (20-32) mmol/L Anion Gap 7 (7-15) mEq/L BUN 17 (7-30) mg/dL Creatinine 0.6 (0.5-1.5) mg/dL Estimated Creat Clear 30.22 Estimated GFR 89 ml/min Glucose 116 H (60-115) mg/dL Calcium 9.7 (8.4-10.6) mg/dL ECG Data Attestation: I personally reviewed and interpreted this ECG as follows: Interpretation: Atrial fibrillation. Rate is 74 beats per minute. There are no specific ST or T-wave abnormalities. Discharge Plan Discharge Clinical Impression: Acute vestibular neuritis Patient Disposition: Home w/ Parent or Adult Condition: Improved Additional Instructions: Continue current plans. Increase activity as tolerated. Follow up with MD or return if symptoms are recurrent or worsening. Prescriptions: No Action aspirin [Adult Aspirin Regimen] 81 mg tablet,delayed release (DR/EC) 81 mg PO BID atorvastatin 10 mg tablet 10 mg PO ONCE Patient Comments: TAKE ONE TABLET BY MOUTH ONE TIME DAILY azithromycin 250 mg tablet 500 mg PO PRN Rx Instructions: 30-60 mins prior to dental procedure lisinopril 10 mg tablet 10 mg PO BID Patient Comments: TAKE 1.5 TABLETS BY MOUTH IN MORNING AND 1 TABLET IN EVENING raloxifene 60 mg tablet 60 mg PO DAILY Patient Comments: TAKE ONE TABLET BY MOUTH ONE TIME DAILY glucosamine-chondroitin [Cosamin DS] 500-400 mg tablet 2 tab PO DAILY Eliquis DVT-PE Treat 30D Start 5 mg (74 tabs) tablets,dose pack See Rx Instructions PO .COMPLEX Qty: 74 0RF Rx Instructions: orally per package directions Follow Up/Referrals: Frannie Allison MD [Primary Care Provider] - Stand Alone Forms: [email or web address] Info Instructions
[2023-05-01] MEDS: ONDANSETRON ODT 4 MG TAB PO (11:41)
[2023-05-01] MEDS: MECLIZINE HCL 25 MG TABLET PO (11:41)
[2023-05-01 11:51] LABS: Basophils Percent Auto 0.2 % (0.0-3.0); Eosinophils Percent Auto 0.3 % (0.0-7.0); Hematocrit 46.7 % (33.0-51.0); Immature Granulocytes Pct Auto 0.3 %; Lymphocytes Percent Auto 8.5 % (20-44); Mean Corpuscular HGB Conc 32 gm/dL (32-36); Mean Corpuscular Hemoglobin 30 pg (26-34); Mean Corpuscular Volume 93 fL (80-100); Monocytes Percent Auto 5.9 % (0.0-11.0); Neutrophils Percent Auto 84.8 % (42.0-72.0); Platelet Count* 163 K/uL (140-440); Red Blood Count 5.01 m/uL (4.00-5.20); White Blood Count* 14.43 K/uL (4.50-11.00)
--- OUTSIDE RECORDS SUMMARY | 2023-05-01 11:59 | XMS_ITS | Clinical Summary ---
Author Name Unknown Organization [employer] [facility] [employer] [facility] Address [place], [place] [address] Care Team Providers Care Die Engraving Supervisor Name Role Phone Frannie Allison MD Primary Care Prov ider Tonya Norwood MD Unavailable [phone] Allergies Active Allergy Reactions Criticality Noted Date Comments Amoxicillin Rash 09/02/2006 Cefuroxime Hives 09/02/2006 Cephalosporins Hives Low 12/04/2018 Iodinated Contrast Media Itching,Mouth/J aw Spasm 05/21/2008 Pt reports itching in her eyes and a bubbling petroleum feel in her mouth. Diatrizoate Allergen Itching High 12/04/2018 Doxycycline Nausea Only 07/13/2013 Gadodiamide Itching High 12/04/2018 Latex Rash 05/23/2022 Penicillin V Rash Low 12/04/2018 Medications Medication Sig Dispensed Refills Start Date End Date Status MULTIVITAMIN TAB one tablet daily 0 09/02/2006 Ac tive CALCIUM 500 WITH D 500 MG (1,250 MG)-400 UNIT TAB 0 09/06/2007 Active Sodium Chloride-Aloe Vera (AYR SALINE GEL) spry Inhale in the nostril(s). 0 03/01/2014 Active glucosamine-chondr oitin, 500-400 mg, (COSAMIN DS 500/400) 500-400 mg cap Take 2 capsules daily 0 04/01/2014 Active WalkerIndications: Hip pain, left Walker for home use. 1 Device 0 10/02/2016 Active acetaminophen (TYLENOL EXTRA STRGTH) 500 mg tablet Take 1 tablet by mouth every 6 hours if needed. Max acetaminophen dose: 4000mg in 24 hrs. 0 11/06/2018 Active hydrocortisone 2.5% cream apply to the lips twice daily for 2 weeks at a time. repeat as needed for flares 0 05/23/2020 Active Chlorpheniramine-D M 4-30 mg tab Daily as needed 0 Active raloxifene (EVISTA) 60 mg tabletIndications: Osteoporosis, unspecified osteoporosis type, unspecified pathological fracture presence Take 1 Tablet (60 mg) by mouth once daily. HOLD until patient calls 90 Tablet 4 09/08/2022 Active atorvastatin (LIPITOR) 10 mg tabletIndications: Hypercholesteremia Take 1 Tablet (10 mg) by mouth once daily. HOLD until patient calls 90 Tablet 4 09/08/2022 Active dilTIAZem CD (CARDIZEM CD) 120 mg extended release 24 hr capsuleIndications :New onset atrial fibrillation (HC) Take 1 Capsule (120 mg) by mouth once daily. HOLD until patient calls 90 Capsule 3 09/08/2022 Active lisinopriL (PRINIVIL; ZESTRIL) 10 mg tabletIndications: Aortic ectasia (HC) 1.5 tabs in am and 1 tab in evening. HOLD until patient calls 225 Tablet 3 09/08/2022 Active azithromycin (ZITHROMAX) 500 mg tabletIndications: Aortic valve stenosis, severe 1 tab 30-60 min before dental procedure. HOLD until patient calls 1 Tablet 6 09/08/2022 Active apixaban (ELIQUIS) 2.5 mg tabletIndications: Persistent atrial fibrillation (HC) Take 1 Tablet (2.5 mg) by mouth two times daily. 60 Tablet 11 03/16/2023 Active Active Problems Problem Noted Date Diagnosed Date AF (atrial fibrillation) 10/05/2022 Aortic insufficiency 10/05/2022 Aortic stenosis 10/05/2022 Overview: AVR 08/19 Arthritis 10/05/2022 Overview: knee rt--torn menicus, cortisone shot Bicuspid aortic valve 10/05/2022 Overview: echo 09/18. Needs SBE prophylaxis. Mitral insufficiency 10/05/2022 Overview: osteopenia, dexa 2006, off Fosamax 10/14 COVID-19 10/04/2022 Overview: [facility] SBE (subacute bacterial endocarditis) prophylaxi s candidate 08/31/2021 Overview: S/p AVR: Cont ASA and SBE prophylaxis. Aortic ectasia 10/09/2018 HTN (hypertension) 04/09/2013 ACP (advance care planning) 08/03/2011 Overview: Patient has identified Health Care Agent(s): Yes Add Health Care Agents: Yes Health Care Agent(s): Primary Health Care Agent: Shayne King Relationship: Secondary Health Care Agent: Jarvis King Relationship: son work Third agent: Yuri King Relationship: son [phone] Cell Patient has Advance Care Plan Documents (Health Care Directive, POLST): Yes Advance Care Plan Documents: Health Care Directive Patient has identified Specific Treatment Preferences: Yes Specific Treatment Preferences: a.) Code Status: CPR/Attempt Resuscitation b.) Goals of Treatment: Comfort Care. If I reach a point where I am no longer able to make decisions for myself and it is reasonably certain I will not recover my ability to know who I am, then I want comfort care only. Do not intubate but use medication, oxygen, oral suction, and manual clearing of airways, etc. as needed for immediate comfort. Dyslipidemia 07/16/2011 Personal history of colonic polyps 04/22/2011 Overview: Colonoscopy 04/2011 diverticulosis repeat in 5 years Colonoscopy 05/2016 polyp, diverticuli repeat in 5 years Personal history of colonic polyps 04/22/2011 Overview: Colonoscopy 04/2011 diverticulosis repeat in 5 years S/P aortic valve replacement 08/28/2010 Aortic valve stenosis, severe 08/17/2010 Overview: S/p 21 mm Johns aortic tissue valve replacement 08/2010. Echo 06/2014 - 1. Decreased LV size, mildly increased wall thickness, normal global systolic function with an estimated EF of 55 - 60%. 2. Biatrial enlargement. 3. The aortic valve is functioning 21 mm Bovine pericardial tissue Magna, no stenosis and mild regurgitation. Mean gradient 7.4 mmHg. 4. The mitral valve is normal, mild mitral regurgitation. 5. Mild-moderate tricuspid regurgitation. 6. Compared to echo report 06/2012 -- no significant change. Minimal CAD on preoperative angiogram. 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 08/25/2010 10/05/2010 Overview: INR Goal Range: 2.0 - 2.5 Stress hyperglycemia 08/18/2010 014 Bicuspid aortic valve 08/17/20102013 Anemia due to acute blood loss 08/17/2010 01/11/2014 Thrombocytopenia due to extr acorporeal circulation of blood 08/17/2010 08/28/2010 S/P AVR (aortic valve replac ement) 21 JOHNS BOVINE PERICARDIAL TISSUE VALVE 08/17/2010 10/06/19 11 Aortic stenosis 09/17/2009 03/16/2011 Hypertension 09/17/2009 07/16/2011 Bicuspid aortic valve 08/27/20092010 HTN (hypertension) 08/27/2009 0 Encounters Date Type Department Care Team Description 03/15/2023 Refill [facility] [address] [place] [address] Kedar Elizalde MD Refill Request (ELIQUIS ORAL TABLET 2.5 MG) 02/08/2023 10:00 AM CDT Office Visit [facility] [address] [place] [phone] Kedar Elizalde MD Follow Up (Cardiovascular Disease and A fib ) 02/08/2023 Travel 02/03/2023 11:00 AM CDT Ancillary Procedure [facility] [address] [place] [phone] 02/03/2023 Travel from Last 3 Months Immunizations Name Administration Dates Next Due AMB Influenza, IIV3 (Age >=3 years)(Flu Clinic Only) 12/29/2011 COVID-19 vaccine ([facility] 30mcg/0.3mL) PF, MDV 06/07/2020,05/17/2020 Influenza, High-dose Inactivated 019,12/20/2017,12/04/2016,2015,01/01/2015,01/03/2014 Influenza, High-dose Quadriv alent Inactivated 12/11/2021,12/12/2020,11/27/2019 Influenza, IIV3 (Age 6-35 mos) 12/15/2010,2008 Influenza, IIV3 (Age >=3 years) 12/29/2011,12/15,02/10/2004 Influenza, Inactivated IIV3 (Age 65+ Years) Preserv Free 12/20/2017 Pneumococcal Poly,23-Valent (Pneumovax) 09/02/2006 Pneumococcal conj 13-Valent (Prevnar 13) 01/21/2015 Td (Age >=7 Years) 06/24/2005 Td, Preservative Free (age > = 7 Years) 06/24/2005 Tdap 08/25/2020,07/30/2010 Zoster (Shingrix-RZV, recombinant) 03/13/2018, Zoster (Zostavax-ZVL, live) 01/05/2007 Family History Medical History Relation Name Comments Cancer Father stomach Cancer Mother hodgkins Heart Disease Mother chf Hypertension Mother Cancer-breast No Family History Relation Name Status Comments Father Mother Social History Tobacco Use Types Packs/Day Years Used Date Smoking Tobacco: Never Smokeless Tobacco: Never Tobacco Cessation:Counseling Given: Yes Alcohol Use Standard Drinks/Week Comments No 0 (1 standard drink = 0.6 oz pur e alcohol) PHQ-2 Answer Date Recorded PHQ-2 TOTAL SCORE 0 09/08/2022 Social Connections Answer Date Recorded Frequency of Communication with Friends and Fami ly 0 09/08/2022 Financial Resource Strain Answer Date R ecorded Difficulty of Paying Living Expenses 3 09/08/2022 Difficulty of Paying Living Expenses Not on file 09/08/2022 Food Insecurity Answer Date Recorded Worried About Running Out of Food in the Last Ye ar 1 09/08/2022 Transportation Needs Answer Date Record ed Lack of Transportation (Medical) 1 09/08/2022 Housing Stability Answer Date Recorded Unable to Pay for Housing in the Last Year 1 09/08/2022 Sex and Gender Information Value Date Recorded Sex Assigned at Not on file Gender Identity Not on file Sexual Orientation Not on file Obstetrics History Para Term AB IAB SAB Ectopic Multiple Livin g Live Births 2 2 Date Outcome GA Total Labor Labor/2nd/3rd Weight Sex Delivery Anes PTL Juanita A1 A5 Name Cl in Last Filed Vital Signs Vital Sign Reading Time Taken Comments Blood Pressure 163/91 02/08/2023 10:04 AM CDT Pulse 78 02/08/2023 10:04 AM CDT Temperature 36.5 ??C (97.7 ??F) 03/10/2021 10:[address] Respiratory Rate 18 09/16/2020 10:07 AM CDT Oxygen Saturation 99% 02/08/2023 10:04 AM CDT Inhaled Oxygen Concentration - - Weight 44 kg (97 lb) 02/08/2023 10:04 AM CDT Height 157.3 cm (5' 1.93) 09/08/2022 9:34 AM CD T Body Mass Index 17.78 09/08/2022 9:34 AM CDT Plan of Treatment Health Maintenance Due Date Last Done Comments COVID-19 vaccine series ( season) 2022 12/29/2021, 07/27/2021, 01/03/2021, Additional history exists Influenza for age 65+ 12/10/2022 12/11/2021 , 12/12/2020, 11/27/2019, Additional history exists Medicare Wellness for age 65+ 09/08/2023, 08/31/2021, 07/01/2020, Additional history exists BMI (ht and wt on same day) for age 18+ 09/09/2023 09/08/2022, 05/04/2022, 08/31/2021, Additional history exists Depression screening for age 12+ 09/09/2023 09/08/2022, 08/31/2021, 07/01/2020, Additional history exists Tetanus booster 08/25/2030 08/25/2020, 07/11, 06/24/2005, Additional history exists Pneumococcal series for age 65+ Completed 5, 09/02/2006 Zoster (shingles) series for age 50+ Completed 03/13/2018, 12/10/2017, 01/05/2007 Tdap Completed 08/25/2020, 07/30/2010 DEXA/DXA scan for age 65+ Completed 2020, 10/10/2018, 08/30/2016, Additional history exists Medical Devices Implanted Type Area Comic Artist Device Identifier Shelf Expiration Date Model / Serial / Lot Valve Magna [id number] 21 - [id number] Implanted:Qty: 1 on 08/17/2010 at [facility] N/A: Aortic Valve Johns [employer] Torie 10/27/2013 [id number] / [id number] / Procedures Procedure Name Priority Date/Time Associated Diagnosis Comments ECHO TTE COMPLETE WO CONTRAST Routine 02/03/2023 11:38 AM CDT PAF (paroxysmal atrial fibrillation) (HC) from Last 3 Months Results * ECHO TTE COMPLETE WO CONTRAST (02/03/2023 11:38 AM CDT) AORTIC VALVE MEAN PG 15 mmHg EJECTION FRACTION 71 % PEAK TR VELOCITY 2.5 m/s LVEDD 3.0 cm EJECTION FRACTION 65 - 70% Anatomical Region Laterality Modality Ultrasound 02/03/2023 11:1 2 AM CDT Narrative 02/03/2023 4:51 PM CDT ECHOCARDIOGRAM GUADALUPE KING ? Accession#: ?? [id number] : ?1940 82 years Study Date: ?? 02/03/2023 11:12:02 AM Gender: F ?BP: ? 125/81 mmHg Height: 157.00 cm ?BSA: ?1.43 m? ? ? Weight: 46.00 kg ? Tech: ? MHR ? Referring MD: RACHEL CAM Site: ? [facility] [email or web address]] Reading Location: MOBILE OP Patient Location: Outpatient. Procedure: 2D, Color Doppler and Spectral Doppler. Indication for study: paroxismal atrial fibrillation Cardiac Rhythm: Irregular.Study quality: Fair. Final Impressions: 1. Normal LV size, mildly increased wall thickness, estimated EF of 65 - 70%. 2. Severe biatrial enlargement. 3. S/P 21 mm Magna bioprosthesis, no regurgitation. It is difficult to evaluate for stenosis with irregular R-R intervals but there is some degree of degenerative stenosis: Vmax 2.7, MG 15 mmHg, XANDER 0.95 cm? ? ?, DI 0.34, SVi 30.7 ml/m? ? ?, AT 64 msec. 4. Moderate tricuspid regurgitation. Comparison Compared to prior exam of 02/18/2022, there has been no significant change. - All findings are similar Chamber Sizes and Function Normal left ventricular size, mildly increased wall thickness, normal global systolic function with an estimated EF of 65 - 70%. Left atrial size is severely enlarged. Right ventricular cavity size is normal, global systolic RV function is normal. RV wall thickness is normal. The right atrium is severely enlarged. Right atrial volume index is 64 ml/m? ? ?. Right atrial area is 28 cm? ? ?. The pulmonary artery is of normal size and origin. The sinus of Valsalva is normal sized. The ascending aorta is normal sized. Valves, RV Pressures and Diastolic Function The aortic valve is bioprosthesis, moderate stenosis and no regurgitation. The mitral valve is normal in structure, trace mitral regurgitation. Indeterminate pattern of LV diastolic filling. The tricuspid valve is normal in structure. Tricuspid regurgitation is moderate. The tricuspid regurgitant velocity is 2.5 m/s, the estimated right ventricular systolic pressure is 26 mmHg plus right atrial pressure. The pulmonic valve is normal. Mild pulmonary regurgitation. Masses, Effusion, Shunts There is no pericardial effusion. The inferior vena cava is normal sized, respiratory size variation less than 50%. No left to right shunting was detected by limited color flow Doppler interrogation of the interatrial septum. MEASUREMENTS AND CALCULATIONS 2-D Measurements and LV Function: LVID (d) ?3.0 cm LV FS% (2D) ?? 32 % LVID (s) ?2.1 cm LVOT diameter 1.9 cm IVS (d) ? 1.2 cm HR ?80 bpm LVPW (d) ?1.2 cm LA Vol index ??48 ml/m2 Ao Sinus ?3.6 cm RA Vol index ??64 ml/m2 Ao ST junct 3.1 cm RA area ? 28 cm? ? ? Asc Ao ?3.9 cm RV Max 4C (d) 2.4 cm LA ?3.7 cm Aortic Valve: Vmax ? 2.7 m/s ??XANDER (V) ?? 0.86 cm? ? ? VTI ?0.46 m ?? XANDER (I) ?? 0.95 cm? ? ? LVOT V max 0.8 m/s ??Max PG ?29 mmHg LVOT VTI ?? 0.16 m ?? Mean PG ?? 15 mmHg SV ? 44 ml ?Dim Index 0.34 SV index ?? 31 ml/m? ? ? CO ?3.5 l/min ?CI ?2.5 l/min/m? ? ? Tricuspid Valve and estimated PA pressures: TR Vmax 2.5 m/s TAPSE 1.2 cm TR maxG 26 mmHg . This study was interpreted by an [facility] accredited facility. ??Final ?? Procedure Note Yoshi Garnica MD - 02/03/2023 ECHOCARDIOGRAM GUADALUPE KING : 1940 82 years Study Date: 02/03/2023 11:12:02 AM Gender: F BP: 125/81 mmHg Height: 157.00 cm BSA: 1.43 m? ? ? Weight: 46.00 kg Tech: MHR Referring MD: RACHEL CAM Site: [facility] [[email or web address] Reading Location: MOBILE OP Patient Location: Outpatient. Procedure: 2D, Color Doppler and Spectral Doppler. Indication for study: paroxismal atrial fibrillation Cardiac Rhythm: Irregular.Study quality: Fair. Final Impressions: 1. Normal LV size, mildly increased wall thickness, estimated EF of 65 -70%. 2. Severe biatrial enlargement. 3. S/P 21 mm Magna bioprosthesis, no regurgitation. It is difficult toevaluate for stenosis with irregular R-R intervals but there is somedegree of degenerative stenosis: Vmax 2.7, MG 15 mmHg, XANDER 0.95 cm? ? ?, DI0.34, SVi 30.7 ml/m? ? ?, AT 64 msec. 4. Moderate tricuspid regurgitation. Comparison Compared to prior exam of 02/18/2022, there has been no significantchange. - All findings are similar Chamber Sizes and Function Normal left ventricular size, mildly increased wall thickness, normalglobal systolic function with an estimated EF of 65 - 70%. Left atrialsize is severely enlarged. Right ventricular cavity size is normal, globalsystolic RV function is normal. RV wall thickness is normal. The rightatrium is severely enlarged. Right atrial volume index is 64 ml/m? ? ?. Rightatrial area is 28 cm? ? ?. The pulmonary artery is of normal size and origin.The sinus of Valsalva is normal sized. The ascending aorta is normalsized. Valves, RV Pressures and Diastolic Function The aortic valve is bioprosthesis, moderate stenosis and no regurgitation.The mitral valve is normal in structure, trace mitral regurgitation.Indeterminate pattern of LV diastolic filling. The tricuspid valve isnormal in structure. Tricuspid regurgitation is moderate. The tricuspidregurgitant velocity is 2.5 m/s, the estimated right ventricular systolicpressure is 26 mmHg plus right atrial pressure. The pulmonic valve isnormal. Mild pulmonary regurgitation. Masses, Effusion, Shunts There is no pericardial effusion. The inferior vena cava is normal sized,respiratory size variation less than 50%. No left to right shunting wasdetected by limited color flow Doppler interrogation of the interatrialseptum. MEASUREMENTS AND CALCULATIONS 2-D Measurements and LV Function: LVID (d) 3.0 cm LV FS% (2D) 32 % LVID (s) 2.1 cm LVOT diameter 1.9 cm IVS (d) 1.2 cm HR 80 bpm LVPW (d) 1.2 cm LA Vol index 48 ml/m2 Ao Sinus 3.6 cm RA Vol index 64 ml/m2 Ao ST junct 3.1 cm RA area 28 cm? ? ? Asc Ao 3.9 cm RV Max 4C (d) 2.4 cm LA 3.7 cm Aortic Valve: Vmax 2.7 m/s XANDER (V) 0.86 cm? ? ? VTI 0.46 m XANDER (I) 0.95 cm? ? ? LVOT V max 0.8 m/s Max PG 29 mmHg LVOT VTI 0.16 m Mean PG 15 mmHg SV 44 ml Dim Index 0.34 SV index 31 ml/m? ? ? CO 3.5 l/min CI 2.5 l/min/m? ? ? Tricuspid Valve and estimated PA pressures: TR Vmax 2.5 m/s TAPSE 1.2 cm TR maxG 26 mmHg . This study was interpreted by an [facility] accredited facility. 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 [employer] Expl anation Healthcare Directive 07/29/2011 HEALTH CARE DIRECTIVE, [facility], 06/29/2011 Latest Code Status on File Code Status Date Activated Date Inactivated Comments Full Code 08/17/2010 7:24 AM 08/23/2010 2:53 PM Code Status History Code Status Date Activated Date Inactivated Comments Full Code 08/17/2010 5:58 AM 08/17/2010 7:24 AM Full Code 08/14/2010 10:08 AM 08/14/2010 4:25 PM Full Code 08/13/2010 1:26 PM 08/13/2010 1:43 PM Care Teams Die Engraving Supervisor Relationship Specialty Start Date End Date Frannie Allison MD [address] [place] [address] PCP - General Family Practice 03/09/12 Tonya Norwood MD [address] [place] [address] Consulting Physician Cardiovascular Disease 08/29/14
[2023-05-01 12:00] VITALS: PULSE 78; O2SAT 99
[2023-05-01 12:03] LABS: Chloride* 102 mmol/L (96-114); Potassium* 4.7 mmol/L (3.6-5.1); Sodium* 137 mmol/L (135-149)
[2023-05-01 12:06] LABS: Anion Gap 7 mEq/L (7-15); Blood Urea Nitrogen* 17 mg/dL (7-30); Calcium* 9.7 mg/dL (8.4-10.6); Carbon Dioxide* 28 mmol/L (20-32); Creatinine* 0.6 mg/dL (0.5-1.5); Est. Creatinine Clearance* 30.22; Estimated Glomerular Filt Rate 89 ml/min; Glucose* 116 mg/dL (60-115)
[2023-05-01 12:07] LABS: Slide Review Reflex No
[2023-05-01 13:02] VITALS: BP 148/99; PULSE 87; RESP 16; O2SAT 98
[2023-05-01 13:10] VITALS: BP 159/111; PULSE 78; RESP 22; TEMP 36.3
--- NOTE | 2023-05-01 13:20 | ED.NURSE ---
Pt tolerated ambulation to BR well. VSS. Pt reports improvement after meds.
== END 2023-05-01 13:10 | disposition home or self-care (01) ==
PROVIDERS: Emergency Provider Emergency Medicine Emergency Medical Services; PCP Family Medicine
DX: G58.8 Other specified mononeuropathies (principal)
CPT/HCPCS: 36415; 80048; 85025; 93005; 99284; A9270

== ENCOUNTER 2023-07-30 12:12 | Emergency (ER) | payer MEDICARE, BC, SELFPAY ==
[2023-07-30 12:32] VITALS: BP 149/104; PULSE 96; RESP 16; TEMP 36.4; O2SAT 96; BMI 17.9
--- NOTE | 2023-07-30 13:23 | ED_ITS ---
HPI - Ear Problem General Chief complaint: Ear/Nose/Throat Problem Stated complaint: left ear infection Time Seen by Provider: 07/30/23 12:55 History of Present Illness HPI Narrative: This 82-year-old female comes in reporting some pain in her left ear for the past week. She does not report any fevers or nasal congestion. She states that she has an occasional cough. She does not report sore throat or teeth pain. Related Data Home Medications Medication Instructions Recorded Confirmed atorvastatin 10 mg tablet 10 mg PO ONCE 05/23/22 07/30/23 azithromycin 250 mg tablet 500 mg PO PRN 05/23/22 11/11/22 glucosamine-chondroitin 500 mg-400 2 tab PO DAILY 05/23/22 07/30/23 mg tablet (Cosamin DS) lisinopril 10 mg tablet 10 mg PO BID 05/23/22 07/30/23 raloxifene 60 mg tablet 60 mg PO DAILY 05/23/22 07/30/23 diltiazem HCl 120 mg 120 mg PO DAILY 07/30/23 07/30/23 capsule,extended release 24 hr Previous Rx's Medication Instructions Recorded apixaban 5 mg (74 tabs) tablets in See Rx Instructions PO .COMPLEX 05/23/22 a dose pack (Eliquis DVT-PE Treat #74 ea 30D Start) methylprednisolone 4 mg tablets in See Rx Instructions PO .COMPLEX 07/30/23 a dose pack (Medrol (Chele)) #21 ea Allergies Allergy/AdvReac Type Severity Reaction Status Date / Time gadodiamide Allergy Intermediate itching Verified 11/11/22 10:57 Cephalosporins Allergy Mild Hives Verified 11/11/22 10:57 penicillin V Allergy Mild Rash Verified 11/11/22 10:57 amoxicillin AdvReac Rash Verified 11/11/22 10:57 cefuroxime [From Ceftin] AdvReac Hives Verified 11/11/22 10:57 diatrizoate meglumine AdvReac itching Verified 11/11/22 10:57 doxycycline AdvReac Nausea Verified 11/11/22 10:57 latex AdvReac Verified 11/11/22 10:57 contrast dye AdvReac Uncoded 11/11/22 10:57 Review of Systems Status of ROS: Reports: 10 or more systems reviewed and unremarkable except as noted in History and below Narrative: Constitutional: No fevers, no weight gain or loss. Eyes: No discharge. No vision changes. HENT: No congestion, no sore throat, no ear pain. Cardiovascular: No chest pain, no palpitations. Respiratory: No shortness of breath, no wheezes, no cough. Gastrointestinal: No abdominal pain, no vomiting, no diarrhea. Genitourinary: No dysuria, no hematuria. Musculoskeletal: Normal range of motion. Skin: No rashes, no pruritis. Neurological: No dizziness, weakness, sensory change, speech change. She reports some difficulty remembering things at times. Endo/Heme/Allergies: No bruising or bleeding. No polydipsia. Pysch: no suicidality, no anxiety, no insomnia. All other systems reviewed and are negative. [facility] Colonic polyp ?K63.5 - Polyp of colon (ICD-10) Atrial fibrillation ?I48.91 - Unspecified atrial fibrillation (ICD-10) HTN (hypertension) ?I10 - Essential (primary) hypertension (ICD-10) Bicuspid aortic valve ?Q23.1 - Congenital insufficiency of aortic valve (ICD-10) Arthritis ?M19.90 - Unspecified osteoarthritis, unspecified site (ICD-10) Aortic stenosis ?I35.0 - Nonrheumatic aortic (valve) stenosis (ICD-10) Surgical History H/O vein stripping ?Z98.890 - Other specified postprocedural states (ICD-10) Hx of tonsillectomy ?Z90.89 - Acquired absence of other organs (ICD-10) Status post ORIF of fracture of ankle (10/21/18) ?Z98.890 - Other specified postprocedural states (ICD-10) ?Z87.81 - Personal history of (healed) traumatic fracture (ICD-10) 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 - Presence of prosthetic heart valve (ICD-10) Social History Smoking Status: Never smoker Do you use any of these nicotine containing products: None Second hand tobacco smoke exposure: No How often do you have a drink containing alcohol: never How often do you have six or more drinks on one occasion: Never AUDIT-C Alcohol total score: 0 Non-prescribed substance use: denies use Exam Narrative: Exam Narrative: Constitutional: Well-developed, well-nourished, no acute distress. HEENT: Normocephalic, atraumatic. Tympanic membranes are visualized and appear normal bilaterally. Neck: Normal range of motion. Nontender. Supple. Heart: Intact distal pulses. Lungs: No chest discomfort. No wheezes, rhonchi, or rales. Abdomen: Nontender. Back: Normal range of motion. Extremities: Normal range of motion. No injury. Skin: Intact. No rash. Warm. No erythema or pallor. Neurologic: No altered sensation. No weakness. Alert and oriented. Psychiatric: No suicidality. No anxiety or depression. No insomnia. Nursing notes and vitals signs are reviewed. Const: Vital Signs, click to edit/add: Vital Signs - 24 hr 07/30/23 12:32 Temperature 97.6 F Pulse Rate [Pulse Oximeter] 96 Respiratory Rate 16 Blood Pressure [Le ft Upper Arm] 149/104 H Pulse Oximetry 96 Oxygen Delivery Me thod Room Air Course Vital Signs Vital signs: Initial Vital Signs Temperature 97.6 F 07/30/23 12:32 Temperature Source Temporal Artery Scan 07/30/23 12:32 Pulse Rate 96 07/30/23 12:32 Respiratory Rate 16 07/30/23 12:32 Blood Pressure 149/104 H 07/30/23 12:32 Blood Pressure Mean 119 H 07/30/23 12:32 Blood Pressure Position Sitting 07/30/23 12:32 Pulse Oximetry 96 07/30/23 12:32 Oxygen Delivery Method Room Air 07/30/23 12:32 Vital Signs Temperature 97.6 F 07/30/23 12:32 Pulse Rate 96 07/30/23 12:32 Respiratory Rate 16 07/30/23 12:32 Blood Pressure 149/104 H 07/30/23 12:32 Pulse Oximetry 96 07/30/23 12:32 Oxygen Delivery Method Room Air 07/30/23 12:32 Temperature 97.6 F 07/30/23 12:32 Pulse Rate 96 07/30/23 12:32 Respiratory Rate 16 07/30/23 12:32 Blood Pressure 149/104 H 07/30/23 12:32 Pulse Oximetry 96 07/30/23 12:32 Oxygen Delivery Method Room Air 07/30/23 12:32 Medical Decision Making [facility] Narrative Medical decision making narrative: This patient comes in reporting pain in her left ear but her exam is completely normal. She does not appear to have any pharyngitis and reports no dental pain. She may have some eustachian tube dysfunction however the light reflecting off of the tympanic membrane appears normal with out sign of increased or decreased pressure in the mill compartment. The patient has normal vital signs and is okay to return home. She did receive a prescription for Medrol Dosepak which may help with some symptomatic relief. I did describe signs and symptoms that would indicate a need for return and re-evaluation. Discharge Plan Discharge Clinical Impression: Otalgia of left ear Patient Disposition: Home, Self-Care Condition: Stable Additional Instructions: Take medication as prescribed. Follow up with MD or return if worsening. Prescriptions: New methylprednisolone [Medrol (Chele)] 4 mg tablets,dose pack See Rx Instructions .ROUTE .COMPLEX Qty: 21 0RF Rx Instructions: orally per package directions No Action diltiazem HCl 120 mg capsule,extended release 24hr 120 mg PO DAILY atorvastatin 10 mg tablet 10 mg PO ONCE Patient Comments: TAKE ONE TABLET BY MOUTH ONE TIME DAILY azithromycin 250 mg tablet 500 mg PO PRN Rx Instructions: 30-60 mins prior to dental procedure lisinopril 10 mg tablet 10 mg PO BID Patient Comments: TAKE 1.5 TABLETS BY MOUTH IN MORNING AND 1 TABLET IN EVENING raloxifene 60 mg tablet 60 mg PO DAILY Patient Comments: TAKE ONE TABLET BY MOUTH ONE TIME DAILY glucosamine-chondroitin [Cosamin DS] 500-400 mg tablet 2 tab PO DAILY Eliquis DVT-PE Treat 30D Start 5 mg (74 tabs) tablets,dose pack See Rx Instructions PO .COMPLEX Qty: 74 0RF Rx Instructions: orally per package directions Follow Up/Referrals: Frannie Allison MD [Primary Care Provider] - Stand Alone Forms: [facility] Info Instructions
--- OUTSIDE RECORDS SUMMARY | 2023-07-30 13:33 | XMS_ITS | Clinical Summary ---
Author Name Unknown Organization [facility] Address [place], [place] [address] Care Team Providers Care Sales Representative Groceries Name Role Phone Frannie Allison MD Primary Care Prov ider Tonya Norwood MD Unavailable [phone] Allergies Active Allergy Reactions Criticality Noted Date [...] Inhale in the nostril(s). 0 03/01/2014 Active glucosamine-chond roitin, 500-400 mg, (COSAMIN DS 500/400) 500-400 mg cap Take 2 capsules daily 0 04/01/2014 Active WalkerIndications :Hip pain, left Walker for home use. 1 Device 10/02/2016 Active acetaminophen (TYLENOL EXTRA STRGTH) 500 mg tablet Take 1 tablet by mouth every 6 hours if needed. Max acetaminophen dose: 4000mg in 24 hrs. 0 11/06/2018 Active hydrocortisone 2.5% cream apply to the lips twice daily for 2 weeks at a time. repeat as needed for flares 05/23/2020 Active Chlorpheniramine- DM 4-30 mg tab Daily as needed Activ e raloxifene (EVISTA) 60 mg tabletIndications :Osteoporosis, unspecified osteoporosis type, unspecified pathological fracture presence Take 1 Tablet (60 mg) by mouth once daily. HOLD until patient calls 90 Tablet 4 09/08/2022 Active atorvastatin (LIPITOR) 10 mg tabletIndications :Hypercholesterem ia Take 1 Tablet (10 mg) by mouth once daily. HOLD until patient calls 90 Tablet 4 09/08/2022 Active lisinopriL (PRINIVIL; ZESTRIL) 10 mg tabletIndications :Aortic ectasia (HC) 1.5 tabs in am and 1 tab in evening. HOLD until patient calls 225 Tablet 3 09/08/2022 Active azithromycin (ZITHROMAX) 500 mg tabletIndications :Aortic valve stenosis, severe 1 tab 30-60 min before dental procedure. HOLD until patient calls 1 Tablet 6 09/08/2022 Active dilTIAZem CD (CARDIZEM CD) 120 mg extended release 24 hr capsuleIndication s:New onset atrial fibrillation (HC) Take 1 Capsule (120 mg) by mouth once daily. HOLD until patient calls 90 Capsule 3 05/16/2023 Active azithromycin (ZITHROMAX) 250 mg tabletIndications :Aortic valve stenosis, severe TAKE 2 TABLETS (500MG) BY MOUTH 30 - 60 MINUTES PRIOR TO DENTAL PROCEDURE. 6 Tablet 06/01/2023 Active apixaban (ELIQUIS) 2.5 mg tabletIndications :Persistent atrial fibrillation (HC) Take 1 Tablet (2.5 mg) by mouth two times daily. 180 Tablet 1 07/27/2023 Active apixaban (ELIQUIS) 2.5 mg tabletIndications :Persistent atrial fibrillation (HC) Take 1 Tablet (2.5 mg) by mouth two times daily. 60 Tablet 11 05/27/2023 4 Discontinu ed(Reorder (E-cancel not sent)) Active Problems Problem Noted Date Diagnosed Date AF (atrial fibrillation) 10/05/2022 Aortic insufficiency 10/05/2022 Aortic stenosis 10/05/2022 Overview: AVR 5/11 Arthritis 10/05/2022 Overview: knee rt--torn menicus, cortisone shot Bicuspid aortic valve 10/05/2022 Overview: echo 09/18. Needs SBE prophylaxis. Mitral insufficiency 10/05/2022 Overview: osteopenia, dexa 2006, off Fosamax 10/14 COVID-19 10/04/2022 Overview: [facility] SBE (subacute bacterial endocarditis) prophylaxi s candidate 08/31/2021 Overview: S/p AVR: Cont ASA and SBE prophylaxis. 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 08/25/2010 10/05/2010 Overview: [...] Encounters Date Type Department Care Team Description 07/25/2023 [facility]ill [facility] at [address] [id number] Kedar Elizalde MD Refill Request (Eliquis Oral Tablet 2.5mg ) 06/14/2023 2:20 PM TRANSFER AND LINE UP WORKER Nurse/Clinic Staff Only [facility] [address] [place] [address] Blood Pressure 06/14/2023 Telephone [facility] [address] [facility] [address] Frannie Allison MD Blood Pressure 06/14/2023 Travel 06/07/2023 12:50 PM TRANSFER AND [employer] UP WORKER Office Visit [facility] [address] [place] [address] Frannie Allison MD Memory Loss (Concerns about memory issues and confusion and wondering what might be causing it.); Medication Management (Has questions about medications and supplements and if supplements might be too much) 06/07/2023 Travel 06/01/2023 Refill [facility] [address] [place] [address] Frannie Allison MD Refill Request (Azithromycin) 05/16/2023 11:30 AM TRANSFER AND LINE UP WORKER Office Visit [facility] [address] [place] [address] Clare Fierro, [facility] F/U (dizziness) 05/16/2023 Travel from Last 3 Months Immunizations Name Administration Dates Next Due AMB Influenza, IIV3 (Age >=3 years)(Flu Clinic Only) 12/29/2011 COVID-19 vaccine ([employer] 30mcg/0.3mL) PF, MDV 06/07/2020,05/17/2020 Influenza, High-dose Inactivated [...] Sign Reading Time Taken Comments Blood Pressure 142/96 06/14/2023 2:33 PM TRANSFER AND [employer] WORKER Pulse 60 06/14/2023 2:33 PM TRANSFER AND [employer] UP WORKER Temperature 36.5 ??C (97.7 ??F) 03/10/2021 10:[address] Respiratory Rate 18 09/16/2020 10:07 AM CDT Oxygen Saturation 96% 06/07/2023 1:11 PM TRANSFER AND [employer] UP WORKER Inhaled Oxygen Concentration - - Weight 48.2 kg (106 lb 3.2 oz) 06/07/2023 1:11 P M [employer] AND [employer] WORK[employer] Height 160 cm (5' 3) 06/07/2023 1:11 PM TRANSFER AND [employer] UP WORKER Body Mass Index 18.81 06/07/2023 1:11 PM TRANSFER AND [employer] UP WORKER Plan of Treatment Health Maintenance Due Date Last Done Comments Depression screening for age 12+ 09/09/2023 09/08/2022, 08/31/2021, 07/01/2020, Additional history exists Medicare Wellness for age 65+ 09/09/2023, 08/31/2021, 07/01/2020, Additional history exists Influenza for age 65+ 12/11/2023 12/11/2021 , 12/12/2020, 11/27/2019, Additional history exists BMI (ht and wt on same day) for age 18+ 06/07/2024 06/07/2023, 09/08/2022, 05/04/2022, Additional history exists Tetanus booster 08/25/2030 08/25/2020, 07/11, 06/24/2005, Additional history exists Pneumococcal series for age 65+ Completed 5, 09/02/2006 Zoster (shingles) series for age 50+ Completed 03/13/2018, 12/10/2017, 01/05/2007 Tdap Completed 08/25/2020, 07/30/2010 DEXA/DXA scan for age 65+ Completed 2020, 10/10/2018, 08/30/2016, Additional history exists COVID-19 vaccine series Completed 03/08/20, 12/29/2021, 07/27/2021, Additional history exists Medical Devices Implanted Type Area Online Merchandising Specialist Device Identifier Shelf Expiration Date Model / Serial / Lot Valve Magna [id number] Sz 21 - [id number] Implanted:Qty: 1 on 08/17/2010 at [facility] N/A: Aortic Valve [employer] Torie 10/27/2013 [id number] / [id number] / Procedures Procedure Name Priority Date/Time Associated Diagnosis Comments XR DXA BONE DENSITY 2 SITES AXIAL Routine 10/16/2020 10:57 AM CDT Osteoporosis, unspecified osteoporosis type, unspecified pathological fracture presence from Last 3 Months or Most Recently Relevant to Health Maintenance Results * (ABNORMAL) XR DXA BONE DENSITY 2 SITES AXIAL (10/16/2020 10:57 AM CDT) Anatomical Region Laterality Modality Spine, HIPS, HIPL, HIPR Other Impressions 10/21/2020 2:23 PM CDT Osteoporosis. RECOMMENDATIONS: The National Osteoporosis Foundation recommends pharmacologic treatment for patients with T-scores of -2.5 or less, patients with prior history of fragility fractures, or patients with 10-year probability of greater than 3% at hips or greater than 20% of suffering major osteoporotic fractures. Recommend continued optimization of calcium and vitamin D intake through dietary means and/or supplementation and regular exercise. Continue current Raloxifene (Evista) medication treatment. Nedra Salinas PA-C [facility] 10/21/2020 Narrative 10/21/2020 2:23 PM CDT XR DXA Bone Mineral Density (BMD) EXAM LOCATION: [address] [address] PATIENT NAME: Guadalupe Deng DATE OF : 1940 EXAM DATE: 10/16/2020 REQUESTING PROVIDER: Frannie Allison MD GENDER AT : female HEIGHT: 5' 2 (07/01/2020) WEIGHT: ??119 lb (09/16/2020) MENOPAUSAL STATUS: Postmenopausal RACE/ETHNICITY: White RISK FACTORS: Weight < 127 lbs. and White Race CURRENT MEDICATION FOR BONE LOSS: Raloxifene (Evista) INDICATION: Follow-up of existing osteopenia COMPARISON DATE(S): 2018 DXA scans are compared to prior studies for a patient only when the two (or more) studies were performed on the same scanner. It is not possible to compare data generated on one scanner to data from another because there are not standards in DXA equipment. This applies even if the two scanners are made by the same elastic attacher chainstitch. PROCEDURE: Dual-energy x-ray absorptiometry performed with routine technique. Reporting is completed in the form of a T-score. The T-score represents the standard deviation from peak bone mass based on young healthy adult. A Z-score is used for diagnosis in premenopausal women, and for men under the age of 50. FINDINGS: RESULT LUMBAR SPINE L1 - L4 BMD: 0.948 g/cm2 T-Score: - 1.9 Z-Score: + 0.3 Comparison to most recent scan ??in 2019: ??Increase 3.5%. RESULT FEMORAL NECK Left Total Femoral Neck BMD: 0.727 g/cm2 T-Score: - 2.2 Z-Score: + 0.2 RESULT TOTAL HIP Bilateral Total Hip BMD: 0.681 g/cm2 T-Score: - 2.6 Z-Score: - 0.2 Comparison to most recent scan ??in 2019: ??Decrease -2.0%. 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 Expl anation Healthcare Directive 07/29/2011 HEALTH CARE DIRECTIVE, [facility], 06/29/2011 * Full Code (Latest Code Status on File) Date Activated Date Inactivated Comments 08/17/2010 7:24 AM 08/23/2010 2:53 PM * Full Code Date Activated Date Inactivated Comments 08/17/2010 5:58 AM 08/17/2010 7:24 AM * Full Code Date Activated Date Inactivated Comments 08/14/2010 10:08 AM 08/14/2010 4:25 PM * Full Code Date Activated Date Inactivated Comments 08/13/2010 1:26 PM 08/13/2010 1:43 PM Care Teams Sales Representative Groceries Relationship Specialty Start Date End Date Frannie Allison MD [address] [place] [address] PCP - General Family Practice 03/09/12 Tonya Norwood MD [address] [place] [address] Consulting Physician Cardiovascular Disease 08/29/14
== END 2023-07-30 13:38 | disposition home or self-care (01) ==
LOC: ED 13:31
PROVIDERS: Emergency Provider Emergency Medicine Emergency Medical Services; PCP Family Medicine
DX: H92.02 Otalgia, left ear (principal)
CPT/HCPCS: 99282; 99283; 99284

== ENCOUNTER 2024-03-05 09:41 | Outpatient (CLI) | payer MEDICARE, BC, SELFPAY ==
--- OUTSIDE RECORDS SUMMARY | 2024-03-07 00:33 | XMS_ITS | Clinical Summary ---
Author Organization [facility] Address [place], [place] [address] Care Team Providers Care Laborer Orchard Name Role Phone Frannie Allison MD Primary Care Prov ider Tonya Norwood MD Unavailable [phone] Joie Magdaleno PharmD Unavailable Allergies Active Allergy Reactions Criticality Noted Date [...] off Fosamax 10/14 COVID-19 10/04/2022 Overview (10/05/2022): [facility] Emergency Room SBE (subacute bacterial endocarditis) prophylaxi s candidate 08/31/2021 Overview (08/31/2021): S/p AVR: Cont ASA and SBE prophylaxis. Aortic ectasia 10/09/2018 HTN (hypertension) 04/09/2013 ACP (advance care planning) 08/03/2011 Overview (08/03/2011): Patient has identified Health Care Agent(s): Yes Add Health Care Agents: Yes Health Care Agent(s): Primary Health Care Agent: Shayne Deng Relationship: Secondary Health Care Agent: Jarvis Ish Relationship: son work Third agent: Yuri Deng Relationship: son [phone] Cell Patient has Advance Care Plan Documents [...] atrial fibrillation 11/06/2018 08/31/2021 Polyuria 10/26/2010 09/26/2013 [facility] (current) use of anticoagulants 08/25/2010 10/05/2010 Overview [...] Encounters Date Type Department Care Team Description 03/05/2024 Orders Only [facility] Scanner 1 scan: (1-Ord) [place], [place] CERVICAL SPINE WO CON, 03/05/2024 03/05/2024 Telephone [facility] [address] [place] [address] Frannie Allison MD Blood Pressure 01/26/2024 Patient Outreach [facility] Management - Advanced Care Team [address] [place] [address] Tamara De La Garza Medication Management (COMPREHENSIVE MEDICATION REVIEW - PROVIDER REFERRAL - ACO REACH) 01/24/2024 Refill [facility] [address] [place] [address] Frannie Allison MD Refill Request (Alendronate, Oyster Shell Calcium-vit D3, Lisinopril, Eliquis, Atorvastatin) 12/14/2023 10:20 AM CDT Office Visit [facility] [address] [place] [address] Frannie Allison MD Medicare ANNUAL (subsequent) Visit (83 yo) 12/14/2023 Travel from Last 3 Months Immunizations Name Administration Dates Next Due AMB Influenza, IIV3 (Age >=3 years)(Flu Clinic Only) 12/29/2011 COVID-19 vaccine ([employer] NTech 30mcg/0.3mL) JOSE LUIS ALVARADO 06/07/2020,05/17/2020 Influenza, High-dose [...] 36.5 C (97.7 F) 03/10/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 Rate 18 09/16/2020 10:07 AM CDT [...] history exists Medical Devices Implanted Type Area Implementation Specialist Payroll Device Identifier Shelf Expiration Date Model / Serial / Lot Valve Magna 3000tfx 21 - [id number] Implanted:Qty: 1 on 08/17/2010 at [facility] N/A: Aortic Valve [employer] Torie 10/27/2013 [id number] / [id number] / Procedures Procedure Name Priority Date/Time Associated Diagnosis Comments SCAN-CT INTERPRETATION 12:00 AM 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 SUPERVISOR LIPID PANEL W REFLEX MEASURED LDL Routine 12/14/2023 11:35 AM CDT Dyslipidemia BASIC METABOLIC PANEL Routine 12/14/2023 11:35 AM CDT HTN (hypertension) XR DXA BONE DENSITY 2 SITES AXIAL Routine 09/22/2023 11:32 AM CDT Osteoporosis, unspecified osteoporosis type, unspecified pathological fracture presence from Last 3 Months or Most Recently Relevant to Health Maintenance Results * SCAN-CT INTERPRETATION (03/05/2024 12:00 AM GRADING SUPERVISOR) Anatomical Region Laterality Modality Other Scanner OTHER * LIPID PANEL W REFLEX MEASURED LDL (12/14/2023 11:35 AM CDT) CHOLESTEROL,TOTAL 143 100 - 199 mg/dL 12/14/2023 11:26 PM CDT [facility] [employer] LABORATORY-[facility] TRAL [facility]ORY Comment: Cholesterol, Total Reference Ranges Desirable <200 mg/dL Borderline 200-239 mg/dL High >=240 mg/dL TRIGLYCERIDES 102 <150 mg/dL 12/14/2023 11:26 PM CDT [facility] [employer] LABORATORY-[facility] TRAL [facility] HDL CHOLESTEROL 59 >40 mg/dL 11:26 PM CDT [facility] TRAL [facility] NON-HDL CHOLESTEROL 84 <145 mg/dl 12/14/2023 11:26 PM CDT [facility] TRAL LAB[facility]ATORY CHOL/HDL RATIO 2.42 <4.50 12/14/2023 11:26 PM CDT [facility] TR[facility] LDL CHOLESTEROL 64 <=130 mg/dL 12/14/2023 11:26 PM CDT [facility] TRAL LAB[facility] VLDL CHOLESTEROL 20 <=30 mg/dL 12/14/2023 11:26 PM CDT [facility] TRAL LAB[facility]ATORY PROVIDER ORDERED STATUS RANDOM 12/14/2023 11:26 PM CDT [facility] TRA LABORATORY Blood BLOOD SPECIMEN / Unknown Venipuncture / Unknown 12/14/2023 11:35 AM CDT 12/14/2023 11:35 AM CDT Frannie Allison MD CHEMISTRY [facility] [address] [place] [address], * (ABNORMAL) BASIC METABOLIC PANEL (12/14/2023 11:35 AM CDT) SODIUM 136 136 - 145 mmol/L 12/14/2023 11:26 PM T [facility] LAB[facility] POTASSIUM 4.6 3.5 - 5.1 mmol/L 12/14/2023 11:26 PM CDT [facility] CHLORIDE 100 98 - 107 mmol/L 12/14/2023 11:26 PM T [facility] LAB[facility] CO2,TOTAL 28 22 - 29 mmol/L 12/14/2023 11:26 PM T [facility] LAB[facility] ANION GAP 8 5 - 18 12/14/2023 11:26 PM T [facility] LAB[facility] GLUCOSE 83 70 - 99 mg/dL 12/14/2023 11:26 PM T [facility] CALCIUM 9.7 8.8 - 10.2 mg/dL 12/14/2023 11:26 PM T [facility] BUN 14 8 - 23 mg/dL 12/14/2023 11:26 PM T [facility] CREATININE 0.71 0.50 - 0.90 mg/dL 12/14/2023 11:26 PM T [facility] BUN/CREAT RATIO 20 10 - 20 11:26 PM CDT [facility] eGFR 84(L) >90 mL/min/1.7 3m2 12/14/2023 11:26 PM CDT [facility] Comment:As of 2021, eG FR is calculated by the CKD-EPI creatinine equation without race adjustment. eGFR can be influenced by muscle mass, exercise, and diet. The reported eGFR is an estimation only and is only applicable if the renal function is stable. Blood BLOOD SPECIMEN / Unknown Venipuncture / Unknown 12/14/2023 11:35 AM CDT 12/14/2023 11:35 AM CDT Frannie Allison MD CHEMISTRY [facility] [employer] [facility] [address] [place] [address], * (ABNORMAL) XR DXA BONE DENSITY 2 [...] to assess therapeutic efficacy. Nedra Salinas PA-C [facility] 09/27/2023 Narrative 09/27/2023 1:35 PM CDT For Patients: Results are automatically released to your [employer] ([employer]) account once available, in compliance with federal regulations. This means that you may see your results before your provider has had a chance to review them. Please allow 2-3 business days for your provider to comment on the results. XR DXA Bone Mineral Density (BMD) EXAM LOCATION: [facility] [address] [facility] [address] PATIENT NAME: Guadalupe Deng DATE OF : [...] two scanners are made by the same director video. PROCEDURE: Dual-energy x-ray absorptiometry performed with routine [...] Documents on File Type Date Recorded Patient Councilor Expl anation POLST 02/07/2024 Healthcare Directive 07/29/2011 HEALTH CARE DIRECTIVE, [facility], 06/29/2011 * Full Code (Latest Code [...] 1:26 PM 08/13/2010 1:43 PM Care Teams Laborer Orchard Relationship Specialty Start Date End Date Frannie Allison MD [address] [place] [address] PCP - General Family Practice 03/09/12 Tonya Norwood MD [address] [place] [address] Consulting Physician Cardiovascular Disease 08/29/14 Joie Magdaleno, PharmD [address] [facility] [place] [address] Pharmacist Medication Management Pharmacology 01/26/24 01/25/27
== END 2024-03-05 09:42 | disposition home or self-care (01) ==
LOC: AMB 03-07 00:31
PROVIDERS: PCP Family Medicine; Visit Provider Emergency Medicine
DX: S19.9XXA Unspecified injury of neck, initial encounter (principal); W05.0XXA Fall from non-moving wheelchair, initial encounter; Y92.009 Unspecified place in unspecified non-institutional (private) residence as the place of occurrence of the external cause
CPT/HCPCS: A0425; A0427

== ENCOUNTER 2024-03-05 09:47 | Emergency (ER) | payer MEDICARE, BC, SELFPAY ==
[2024-03-05 09:53] VITALS: BP 127/91; PULSE 82; RESP 18; TEMP 36.2; O2SAT 96
--- NOTE | 2024-03-05 09:53 | CRLHL7_ITS ---
For Patients: As a result of the Cures Act, medical imaging exams and procedure reports are released immediately into your electronic medical record. You may view this report before your referring provider. If you have questions, please contact your health care provider. INDICATION: Fall. History of dementia. COMPARISON: 04/18/2014 TECHNIQUE: CT of the head without intravenous contrast. Please note that all CT scans at this facility use dose modulation, iterative reconstruction, and/or weight-based dosing when appropriate to reduce radiation dose to as low as reasonably achievable. FINDINGS: No acute infarct. No intracranial mass or mass effect. No intracranial hemorrhage. No hydrocephalus. Bilateral symmetrical coalescent periventricular and deep white matter hypoattenuation consistent with chronic ischemic gliotic change. Chronic bilateral caudate nucleus lacunar infarcts. Chronic dilated perivascular space at the base of the right lentiform nucleus. Intact skull base and cranial vault. Visualized orbits are without significant incidental findings. Visualized paranasal sinuses and mastoid air cells are clear. Unremarkable soft tissues. IMPRESSION: No acute findings. Incidental findings described above. Please note that all CT scans at this facility use dose modulation, iterative reconstruction, and/or weight-based dosing when appropriate to reduce radiation dose to as low as reasonably achievable. Dictated by Haim Mandujano MD @ 03/05/2024 10:45:02 AM (Electronically Signed)
--- NOTE | 2024-03-05 09:55 | ED.NURSE ---
Patient arrives in c-collar with neck pain. Will wait to change into gown after c-spine is cleared.
--- NOTE | 2024-03-05 10:03 | CRLHL7_ITS ---
For Patients: As a result of the Cures Act, medical imaging exams and procedure reports are released immediately into your electronic medical record. You may view this report before your referring provider. If you have questions, please contact your health care provider. INDICATION: Fall. COMPARISON: None available. TECHNIQUE: CT of the cervical spine without intravenous contrast. Please note that all CT scans at this facility use dose modulation, iterative reconstruction, and/or weight-based dosing when appropriate to reduce radiation dose to as low as reasonably achievable. FINDINGS: Alignment: No significant spondylolisthesis, widening of the intervertebral disc spaces, interfacetal joints or interspinous distances. Reversal of the cervical lordosis is due to patient positioning on the CT couch. Vertebrae: Vertebral bodies, pedicles, laminae, articular, transverse and spinous processes are intact. Atlantodental Monica bilateral multilevel facet joint osteoarthrosis and advanced disc degeneration at C5-C6 with moderate disc degeneration at C4-C5 and C6-C7. Soft Tissues: No perivertebral edema or hemorrhage. Mild retro-odontoid soft tissue calcified soft tissue thickening consistent with chondrocalcinosis is noted without significant extrinsic mass effect upon the cervical spinal canal. Extraspinal Anatomy: No significant findings. IMPRESSION: No acute traumatic injury is identified. Incidental findings described in the body of the report. Please note that all CT scans at this facility use dose modulation, iterative reconstruction, and/or weight-based dosing when appropriate to reduce radiation dose to as low as reasonably achievable. Dictated by Haim Mandujano MD @ 03/05/2024 10:49:16 AM (Electronically Signed)
--- NOTE | 2024-03-05 10:36 | ED.GENADULT ---
HPI - General Adult General Date Seen: 03/05/24 Chief complaint: Fall/Minor Trauma Stated complaint: fall Time Seen by Provider: 03/05/24 10:21 Source: patient, EMS and RN notes reviewed Mode of arrival: EMS Limitations: other History of Present Illness HPI narrative: Patient is an 83-year-old woman sent in from [facility]. She had an unwitnessed fall, was sitting in her wheelchair and fell to the floor. She is anticoagulated on Eliquis secondary to atrial fibrillation. No reported loss of consciousness. She complained at some point of neck pain, nursing notes says that she was not complaining of neck pain at the time of their assessment but did complain of pain at the time of my assessment. However, she is quite confused, and not necessarily a reliable historian. She does have a history of dementia. Other medical history reviewed. Related Data Home Medications ?Medication ?Instructions ?Recorded ?Confirmed atorvastatin 10 mg tablet 10 mg PO ONCE 05/23/22 03/05/24 azithromycin 250 mg tablet 500 mg PO PRN 05/23/22 03/05/24 glucosamine-chondroitin 500 mg-400 2 tab PO DAILY 05/23/22 03/05/24 mg tablet (Cosamin DS) lisinopril 10 mg tablet 10 mg PO BID 05/23/22 03/05/24 raloxifene 60 mg tablet 60 mg PO DAILY 05/23/22 07/30/23 diltiazem HCl 120 mg 120 mg PO DAILY 07/30/23 03/05/24 capsule,extended release 24 hr alendronate 70 mg tablet 70 mg PO 03/05/24 apixaban 2.5 mg tablet (Eliquis) 2.5 mg PO BID 03/05/24 03/05/24 pantoprazole 20 mg tablet,delayed 20 mg PO DAILY 03/05/24 03/05/24 release sertraline 25 mg tablet 25 mg PO DAILY 03/05/24 03/05/24 Previous Rx's ?Medication ?Instructions ?Recorded apixaban 5 mg (74 tabs) tablets in See Rx Instructions PO .COMPLEX 05/23/22 a dose pack (Eliquis DVT-PE Treat #74 ea 30D Start) methylprednisolone 4 mg tablets in See Rx Instructions PO .COMPLEX 07/30/23 a dose pack (Medrol (Chele)) #21 ea Allergies Allergy/AdvReac Type Severity Reaction Status Date / Time gadodiamide Allergy Intermediate itching Verified 11/11/22 10:57 Cephalosporins Allergy Mild Hives Verified 11/11/22 10:57 penicillin V Allergy Mild Rash Verified 11/11/22 10:57 amoxicillin AdvReac Rash Verified 11/11/22 10:57 cefuroxime (From Ceftin) AdvReac Hives Verified 11/11/22 10:57 diatrizoate meglumine AdvReac itching Verified 11/11/22 10:57 doxycycline AdvReac Nausea Verified 11/11/22 10:57 latex AdvReac Verified 11/11/22 10:57 contrast dye AdvReac Uncoded 11/11/22 10:57 Review of Systems Status of ROS: Reports: unobtainable due to medical condition PFSH PFS Medical History Colonic polyp ?K63.5 - Polyp of colon (ICD-10) Atrial fibrillation ?I48.91 - Unspecified atrial fibrillation (ICD-10) HTN (hypertension) ?I10 - Essential (primary) hypertension (ICD-10) Bicuspid aortic valve ?Q23.1 - Congenital insufficiency of aortic valve (ICD-10) Arthritis ?M19.90 - Unspecified osteoarthritis, unspecified site (ICD-10) Aortic stenosis ?I35.0 - Nonrheumatic aortic (valve) stenosis (ICD-10) Surgical History H/O vein stripping ?Z98.890 - Other specified postprocedural states (ICD-10) Hx of tonsillectomy ?Z90.89 - Acquired absence of other organs (ICD-10) Status post ORIF of fracture of ankle (10/21/18) ?Z98.890 - Other specified postprocedural states (ICD-10) ?Z87.81 - Personal history of (healed) traumatic fracture (ICD-10) 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 Eyes: Sclera clear. Pupils equal and reactive. ENT: Mucous membranes moist. Neck: Supple without adenopathy. Heart: Regular rate and rhythm without murmur. Lungs: Clear. No increased work of breathing, crackles or wheezes. Abdomen: Soft, nontender to palpation. Extremities: Well perfused, pulses intact. No significant edema. Neurologic: Alert, conversant. Speech fluent, face symmetric. Moves all extremities equally. Skin: Warm, dry well perfused. Affect: Normal. Primary survey: Airway: Patent. Breathing: Nonlabored. Lungs clear. Circulation: Pulses intact. No external bleeding. Disability: GCS 15. Secondary survey: Vital signs reviewed In general, an alert, nontoxic elderly 1. Head: Normocephalic, atraumatic. No hematoma, laceration, abrasion. Eyes: Pupils are equal reactive. Extraocular movements full. ENT: No facial trauma. Dentition intact. Neck: Cervical collar in place. No midline cervical tenderness. No anterior neck trauma. Chest: No visible signs of chest trauma. No tenderness to palpation. Heart regular rate and rhythm. Lungs clear bilaterally. Abdomen: No visible signs of trauma. Soft, nondistended, nontender to palpation. Back: No visible signs of trauma. Nontender to palpation. Pelvis: Stable, nontender. Extremities: Atraumatic and nontender to palpation. Neurologic: Alert, conversant, moves all extremities to command. Confused as to date and place. Skin: Warm and dry, no abrasions or lacerations. Const: Vital Signs, click to edit/add: Vital Signs - 24 hr 03/05/24 09:53 03/05/24 11:36 Temperature 97.1 F L Pulse Rate [Pulse Oximeter] 82 54 L Respiratory Rate 18 16 Blood Pressure [Le ft Upper Arm] 127/91 H 154/97 H Pulse Oximetry 96 96 Oxygen Delivery Me thod Room Air Room Air Documenting provider has reviewed patient's vital signs: yes Course Course ED Course: On arrival, CT of the head and cervical spine was ordered. I have ordered basic labs including a CBC, metabolic panel as well as an EKG. It sounds like this was more a mechanical fall. Labs are unremarkable. EKG showed atrial fibrillation with a controlled ventricular rate of 60. No acute ST segment changes. CT scan of the head by my review was negative for acute findings such as hemorrhage. CT scan of the cervical spine read as negative for acute findings by Radiology. Cervical collar was removed, she is moving her neck freely, currently not complaining about pain. No obvious injuries related to fall, stable to return to the [facility]. Return as needed for altered mentation, vomiting, or new apparent injuries. She is currently without complaints, vital signs stable, pulse 54 on last check, blood pressure 154/97. Vital Signs Vital signs: Initial Vital Signs Temperature 97.1 F L 03/05/24 09:53 Temperature Source Temporal Artery Scan 03/05/24 09:53 Pulse Rate 82 03/05/24 09:53 Respiratory Rate 18 03/05/24 09:53 Blood Pressure 127/91 H 03/05/24 09:53 Blood Pressure Mean 103 03/05/24 09:53 Blood Pressure Position Semi-Fowlers 03/05/24 09:53 Pulse Oximetry 96 03/05/24 09:53 Oxygen Delivery Method Room Air 03/05/24 09:53 Vital Signs Temperature 97.1 F L 03/05/24 09:53 Pulse Rate 82 03/05/24 09:53 Respiratory Rate 18 03/05/24 09:53 Blood Pressure 127/91 H 03/05/24 09:53 Pulse Oximetry 96 03/05/24 09:53 Oxygen Delivery Method Room Air 03/05/24 09:53 Temperature 97.1 F L 03/05/24 09:53 Pulse Rate 54 L 03/05/24 11:36 Respiratory Rate 16 03/05/24 11:36 Blood Pressure 154/97 H 03/05/24 11:36 Pulse Oximetry 96 03/05/24 11:36 Oxygen Delivery Method Room Air 03/05/24 11:36 Medical Decision Making Lab Data Labs: Lab Results 03/05/24 Range/Units 11:15 WBC 11.08 H (4.50-11.00) K/uL RBC 4.83 (4.00-5.20) m/uL Hgb 14.2 (12.0-16.0) gm/dL Hct 44.0 (33.0-51.0) % MCV 91 (80-100) fL MCH 29 (26-34) pg MCHC 32 (32-36) gm/dL RDW Coeff of Shawn 13.0 (11.5-15.5) % Plt Count 229 (140-440) K/uL Neut % (Auto) 79.8 H (42.0-72.0) % Lymph % (Auto) 10.1 L (20-44) % [place] % (Auto) 9.4 (0.0-11.0) % Eos % (Auto) 0.2 (0.0-7.0) % Baso % (Auto) 0.2 (0.0-3.0) % Neut # (Auto) 8.80 H (1.7-7.0) K/uL Lymph # (Auto) 1.10 (0.90-2.90) K/uL [place] # (Auto) 1.00 H (0.00-0.90) K/UL Eos # (Auto) 0.00 (0.00-0.50) K/uL Baso # (Auto) 0.00 (0.00-0.30) K/uL Abs Immat Gran (auto) 0.00 (0.00-0.30) K/uL Imm/Tot Granulo (auto) 0.3 % Sodium 135 (135-149) mmol/L Potassium 4.4 (3.6-5.1) mmol/L Chloride 99 (96-114) mmol/L Carbon Dioxide 27 (20-32) mmol/L Anion Gap 9 (7-15) mEq/L BUN 18 (7-30) mg/dL Creatinine 0.6 (0.5-1.5) mg/dL Estimated GFR 88 ml/min Glucose 115 (60-115) mg/dL Calcium 9.9 (8.4-10.6) mg/dL Imaging Data CT scan - head: Attestation: I have reviewed the pertinent imaging results. Radiologist's impression: Patient: Guadalupe Deng MR#: [id number] : 1940 Acct:[id number] Loc: ED Service Date: 03/05/[address]: Ordering Physician: Ashley Serrano M.D. Date of Service: 03/05/24 Procedure(s): CT head/brain wo con Accession Number(s): [id number] cc: Frannie Allison M.D.; Ashley Serrano M.D.~ For Patients: As a result of the Cures Act, medical imaging exams and procedure reports are released immediately into your electronic medical record. You may view this report before your referring provider. If you have questions, please contact your health care provider. INDICATION: Fall. History of dementia. COMPARISON: 04/18/2014 TECHNIQUE: CT of the head without intravenous contrast. Please note that all CT scans at this facility use dose modulation, iterative reconstruction, and/or weight-based dosing when appropriate to reduce radiation dose to as low as reasonably achievable. FINDINGS: No acute infarct. No intracranial mass or mass effect. No intracranial hemorrhage. No hydrocephalus. Bilateral symmetrical coalescent periventricular and deep white matter hypoattenuation consistent with chronic ischemic gliotic change. Chronic bilateral caudate nucleus lacunar infarcts. Chronic dilated perivascular space at the base of the right lentiform nucleus. Intact skull base and cranial vault. Visualized orbits are without significant incidental findings. Visualized paranasal sinuses and mastoid air cells are clear. Unremarkable soft tissues. IMPRESSION: No acute findings. Incidental findings described above. Please note that all CT scans at this facility use dose modulation, iterative reconstruction, and/or weight-based dosing when appropriate to reduce radiation dose to as low as reasonably achievable. Dictated by Haim Mandujano MD @ 03/05/2024 10:45:[address]- Other: Attestation: I have reviewed the pertinent imaging results. Radiologist's impression: [place] [address] Diagnostic Imaging Report Patient: Guadalupe Deng MR#: [id number] : 1940 Acct:[id number] Loc: ED Service Date: 03/05/[address]: Ordering Physician: Ashley Serrano M.D. Date of Service: 03/05/24 Procedure(s): CT cervical spine wo con Accession Number(s): [id number] cc: Frannie Allison M.D.; Ashley Serrano M.D.~ For Patients: As a result of the s Act, medical imaging exams and procedure reports are released immediately into your electronic medical record. You may view this report before your referring provider. If you have questions, please contact your health care provider. INDICATION: Fall. COMPARISON: None available. TECHNIQUE: CT of the cervical spine without intravenous contrast. Please note that all CT scans at this facility use dose modulation, iterative reconstruction, and/or weight-based dosing when appropriate to reduce radiation dose to as low as reasonably achievable. FINDINGS: Alignment: No significant spondylolisthesis, widening of the intervertebral disc spaces, interfacetal joints or interspinous distances. Reversal of the cervical lordosis is due to patient positioning on the CT couch. Vertebrae: Vertebral bodies, pedicles, laminae, articular, transverse and spinous processes are intact. Atlantod[place] bilateral multilevel facet joint osteoarthrosis and advanced disc degeneration at C5-C6 with moderate disc degeneration at C4-C5 and C6-C7. Soft Tissues: No perivertebral edema or hemorrhage. Mild retro-odontoid soft tissue calcified soft tissue thickening consistent with chondrocalcinosis is noted without significant extrinsic mass effect upon the cervical spinal canal. Extraspinal Anatomy: No significant findings. IMPRESSION: No acute traumatic injury is identified. Incidental findings described in the body of the report. Please note that all CT scans at this facility use dose modulation, iterative reconstruction, and/or weight-based dosing when appropriate to reduce radiation dose to as low as reasonably achievable. Dictated by Haim Mandujano MD @ 03/05/2024 10:49:16 AM Discharge Plan Discharge Clinical Impression: Fall Additional Instructions: CT scan of head and cervical spine are normal today as are labs. Return as needed for new or worsening symptoms. Prescriptions: No Action diltiazem HCl 120 mg capsule,extended release 24hr 120 mg PO DAILY methylprednisolone [Medrol (Chele)] 4 mg tablets,dose pack See Rx Instructions .ROUTE .COMPLEX Qty: 21 0RF Rx Instructions: orally per package directions alendronate 70 mg tablet 70 mg PO pantoprazole 20 mg tablet,delayed release (DR/EC) 20 mg PO DAILY sertraline 25 mg tablet 25 mg PO DAILY Eliquis 2.5 mg tablet 2.5 mg PO BID atorvastatin 10 mg tablet 10 mg PO ONCE Patient Comments: TAKE ONE TABLET BY MOUTH ONE TIME DAILY azithromycin 250 mg tablet 500 mg PO PRN Rx Instructions: 30-60 mins prior to dental procedure lisinopril 10 mg tablet 10 mg PO BID Patient Comments: TAKE 1.5 TABLETS BY MOUTH IN MORNING AND 1 TABLET IN EVENING raloxifene 60 mg tablet 60 mg PO DAILY Patient Comments: TAKE ONE TABLET BY MOUTH ONE TIME DAILY glucosamine-chondroitin [Cosamin DS] 500-400 mg tablet 2 tab PO DAILY Eliquis DVT-PE Treat 30D Start 5 mg (74 tabs) tablets,dose pack See Rx Instructions PO .COMPLEX Qty: 74 0RF Rx Instructions: orally per package directions Follow Up/Referrals: Frannie Allison MD [Primary Care Provider] - Stand Alone Forms: MyHealth Info Instructions
--- OUTSIDE RECORDS SUMMARY | 2024-03-05 10:53 | XMS_ITS | Clinical Summary ---
Author Organization [employer] [facility] s & [facility] Aff[facility]ates Address [place], [place] [address] Care Team Providers Care Traffic And Transport Planner Name Role Phone Frannie Allison MD Primary Care Prov ider Tonya Norwood MD Unavailable [phone] Joie Magdaleno PharmD Unavailable [phone] Allergies Active Allergy Reactions Criticality Noted Date [...] one tablet daily 0 09/02/2006 Ac tive Sodium Chloride-Aloe Vera (AYR SALINE GEL) spry [...] repeat as needed for flares 05/23/2020 Active Chlorpheniramine-D M 4-30 mg tab Daily as needed Active dilTIAZem CD (CARDIZEM CD) 120 mg extended release 24 hr capsuleIndications :Permanent atrial fibrillation (HC) Take 1 Capsule (120 mg) by mouth once daily. HOLD until patient calls 90 Capsule 3 12/14/2023 Active azithromycin (ZITHROMAX) 500 mg tabletIndications: Aortic valve stenosis, severe TAKE 500MG BY MOUTH 30 - 60 MINUTES PRIOR TO DENTAL PROCEDURE. 3 Tablet 5 12/14/2023 Active alendronate (FOSAMAX) 70 mg tabletIndications: Osteoporosis, unspecified osteoporosis type, unspecified pathological fracture presence TAKE 1 TABLET BY MOUTH. EVERY WEEK 30 MIN. BEFORE BREAKFAST WITH WATER, STAY UPRIGHT FOR 30 MIN. 4 Tablet 01/27/2024 Active calcium carbonate-vitamin D3, 500 mg-400 units, (Oyster Shell Calcium-Vit D3) tabletIndications: Osteoporosis, unspecified osteoporosis type, unspecified pathological fracture presence TAKE 1 TABLET BY MOUTH ONCE DAILY 90 Tablet 01/27/2024 Active lisinopriL (PRINIVIL; ZESTRIL) 10 mg tabletIndications: Aortic ectasia (HC) TAKE 1 AND 1/2 TABLETS (15 MG) BY MOUTH ONCE DAILY;TAKE 1 TABLET BY MOUTH AT BEDTIME 135 Tablet 01/27/2024 Active apixaban (Eliquis) 2.5 mg tabletIndications: Permanent atrial fibrillation (HC) TAKE 1 TABLET BY MOUTH TWICE DAILY 180 Tablet 01/27/2024 Active atorvastatin (LIPITOR) 10 mg tabletIndications: Hypercholesteremia TAKE 1 TABLET BY MOUTH EVERY MORNING 90 Tablet 01/27/2024 Active sertraline (ZOLOFT) 25 mg tabletIndications: Anxiety Take 1 Tablet (25 mg) by mouth once daily in the morning. 30 Tablet 11 01/27/2024 Active pantoprazole (PROTONIX) 20 mg tabletIndications: Heartburn Take 1 Tablet (20 mg) by mouth once daily. 30 Tablet 11 01/27/2024 Active Active Problems Problem Noted Date Diagnosed Date AF (atrial fibrillation) 10/05/2022 Aortic insufficiency 10/05/2022 Aortic stenosis 10/05/2022 Overview (10/05/2022): AVR 5/ Arthritis 10/05/2022 Overview (10/05/2022): knee rt--torn menicus, cortisone shot Bicuspid aortic valve 10/05/2022 Overview (10/05/2022): echo 09/18. Needs SBE prophylaxis. Mitral insufficiency 10/05/2022 Overview (10/05/2022): osteopenia, dexa 2006, off Fosamax 10/14 COVID-19 10/04/2022 Overview (10/05/2022): [facility] Emergency Room SBE (subacute bacterial endocarditis) prophylaxi s candidate 08/31/2021 Overview (08/31/2021): S/p AVR: Cont ASA and SBE prophylaxis. Aortic ectasia 10/09/2018 HTN (hypertension) 04/09/2013 ACP (advance care planning) 08/03/2011 Overview (08/03/2011): Patient has identified Health Care Agent(s): Yes Add Health Care Agents: Yes Health Care Agent(s): Primary Health Care Agent: Shayne Deng Relationship: Secondary Health Care Agent: Jarvis Deng Relationship: son work Third agent: Yuri Kahning Relationship: son [phone] Cell Patient has Advance Care Plan Documents [...] 07/16/2011 Personal history of colonic polyps 04/22/2011 Overview (05/19/2016): Colonoscopy 04/2011 diverticulosis repeat in 5 years Colonoscopy 05/2016 polyp, diverticuli repeat in 5 years Personal history of colonic polyps 04/22/2011 Overview (10/05/2022): Colonoscopy 04/2011 diverticulosis repeat in 5 years S/P aortic valve replacement 08/28/2010 Aortic valve stenosis, severe 08/17/2010 Overview (08/29/2014): S/p 21 mm Johns aortic tissue valve [...] atrial fibrillation 11/06/2018 08/31/2021 Polyuria 10/26/2010 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 [address] [place] [address] Frannie Allison MD Refill Request (Alendronate, Oyster Shell Calcium-vit D3, Lisinopril, Eliquis, Atorvastatin) 12/14/2023 10:20 AM CDT Office Visit [facility] [address] [place] [address] Frannie Allison MD Medicare ANNUAL (subsequent) Visit (83 yo) 12/14/2023 Travel from Last 3 Months Immunizations Name Administration Dates Next Due AMB Influenza, IIV3 (Age >=3 years)(Flu Clinic Only) 12/29/2011 COVID-19 vaccine (Vicarious 30mcg/0.3mL) JOSE LUIS ALVARADO 06/07/2020,05/17/2020 Influenza, High-dose Inactivated 019,12/20/2017,12/04/2016,2015,01/01/2015,01/03/2014 Influenza, High-dose [...] 0 09/08/2022 Social Connections Answer Date Recorded Do you often feel lonely or isolated from those around you? 0 10/05/2023 Financial Resource Strain Answer Date R ecorded Difficulty of Paying Living Expenses 3 10/05/2023 Difficulty of Paying Living Expenses Not on file 10/05/2023 Food Insecurity Answer Date Recorded Do you worry your food will run out before you are able to buy more? 1 10/05/2023 Transportation Needs Answer Date Record ed Does lack of transportation keep you from medica l appointments? 1 10/05/2023 Does lack of transportation keep you from work, meetings or getting things that you need? 1 10/05/2023 Housing Stability Answer Date Recorded What is your housing situation today? 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 Respiratory Rate 18 09/16/2020 10:07 AM CDT Oxygen Saturation 99% 12/14/2023 10:36 AM CDT Inhaled Oxygen Concentration - - Weight 48.2 kg (106 lb 3.2 oz) 12/14/2023 10:36 AM CDT Height 160 cm (5' 3) 12/14/2023 10:36 AM CDT Body Mass Index 18.81 12/14/2023 10:36 AM CDT Plan of Treatment Health Maintenance Due Date Last Done Comments RSV vaccine for adults or (1 - 1-dose 75+ series) 08/20/2014 Depression screening for age 12+ 09/09/2023 09/08/2022, 08/31/2021, 07/01/2020, Additional history exists COVID-19 vaccine series ( season) 2023 03/08/2023, 12/29/2021, 07/27/2021, Additional history exists Influenza for age 65+ 12/11/2023 12/11/2021 , 12/12/2020, 11/27/2019, Additional history exists BMI (ht and wt on same day) for age 18+ 12/13/2024 12/14/2023, 06/07/2023, 09/08/2022, Additional history exists Medicare Wellness for age 65+ 12/14/2024, 09/08/2022, 08/31/2021, Additional history exists Tetanus booster 08/25/2030 08/25/2020, 07/11, 06/24/2005, Additional history exists Pneumococcal series for age 65+ Completed 5, 09/02/2006 Zoster (shingles) series for age 50+ Completed 03/13/2018, 12/10/2017, 01/05/2007 Tdap Completed 08/25/2020, 07/30/2010 DEXA/DXA scan for age 65+ Completed 2023, 10/16/2020, 10/10/2018, Additional history exists Medical Devices Implanted Type Area Acds Block 1 Operator Device Identifier Shelf Expiration Date Model / Serial / Lot Valve Magna 3000tfx Sz 21 - [id number] Implanted:Qty: 1 on 08/17/2010 at [facility] N/A: Aortic Valve [employer] Torie 10/27/2013 [id number] / [id number] / Procedures Procedure Name Priority Date/Time Associated Diagnosis Comments LIPID PANEL W REFLEX MEASURED LDL Routine 12/14/2023 11:35 AM CDT Dyslipidemia BASIC METABOLIC PANEL Routine 12/14/2023 11:35 AM CDT HTN (hypertension) XR DXA BONE DENSITY 2 SITES AXIAL Routine 09/22/2023 11:32 AM CDT Osteoporosis, unspecified osteoporosis type, unspecified pathological fracture presence from Last 3 Months or Most Recently Relevant to Health Maintenance Results * LIPID PANEL W REFLEX MEASURED LDL (12/14/2023 11:35 AM CDT) CHOLESTEROL,TOTAL 143 100 - 199 mg/dL 12/14/2023 11:26 PM CDT [facility] [place] Comment: Cholesterol, Total Reference Ranges Desirable <200 mg/dL Borderline 200-239 mg/dL High >=240 mg/dL TRIGLYCERIDES 102 <150 mg/dL 12/14/2023 11:26 PM CDT [facility] [employer] LAB[facility]AT[facility] HDL CHOLESTEROL 59 >40 mg/dL 11:26 PM CDT [facility] NON-HDL CHOLESTEROL 84 <145 mg/dl 12/14/2023 11:26 PM CDT [facility] [employer] [facility] CHOL/HDL RATIO 2.42 <4.50 12/14/2023 11:26 PM CDT [facility] [employer] [facility] LDL CHOLESTEROL 64 <=130 mg/dL 12/14/2023 11:26 PM CDT [facility] [employer] [facility] VLDL CHOLESTEROL 20 <=30 mg/dL 12/14/2023 11:26 PM CDT [facility] TR[facility] PROVIDER ORDERED STATUS RANDOM 12/14/2023 11:26 PM CDT [facility] Blood BLOOD SPECIMEN / Unknown Venipuncture / Unknown 12/14/2023 11:35 AM CDT 12/14/2023 11:35 AM CDT Frannie Allison MD [facility]Y [facility] [address] [place] [address], * (ABNORMAL) BASIC METABOLIC PANEL (12/14/2023 11:35 AM CDT) [facility] Signature SODIUM 136 136 - 145 mmol/L 12/14/2023 11:26 PM CDT [facility] POTASSIUM 4.6 3.5 - 5.1 mmol/L 12/14/2023 11:26 PM CDT [facility] CHLORIDE 100 98 - 107 mmol/L 12/14/2023 11:26 PM CDT [facility] CO2,TOTAL 28 22 - 29 mmol/L 12/14/2023 11:26 PM T [facility] ANION GAP 8 5 - 18 12/14/2023 11:26 PM T [facility] GLUCOSE 83 70 - 99 mg/dL 12/14/2023 11:26 PM T [facility] CALCIUM 9.7 8.8 - 10.2 mg/dL 12/14/2023 11:26 PM CDT [facility] BUN 14 8 - 23 mg/dL 12/14/2023 11:26 PM T [facility] CREATININE 0.71 0.50 - 0.90 mg/dL 12/14/2023 11:26 PM T [facility] BUN/CREAT RATIO 20 10 - 20 11:26 PM T [facility] eGFR 84(L) >90 mL/min/1.7 3m2 12/14/2023 11:26 PM T [facility] Comment:As of 2021, eG FR is calculated by the CKD-EPI creatinine equation without race adjustment. eGFR can be influenced by muscle mass, exercise, and diet. The reported eGFR is an estimation only and is only applicable if the renal function is stable. Blood BLOOD SPECIMEN / Unknown Venipuncture / Unknown 12/14/2023 11:35 AM CDT 12/14/2023 11:35 AM CDT Frannie Allison MD CHEMISTRY [facility]AL [facility]ORY [address] [place] [address], * (ABNORMAL) XR DXA BONE DENSITY 2 SITES AXIAL (09/22/2023 11:32 AM CDT) Anatomical Region Laterality Modality Spine, HIPS, HIPL, HIPR Other Impressions 09/27/2023 1:35 PM CDT Osteoporosis. Worsening T-score throughout despite treatment with Evista, consider alternative treatment option. RECOMMENDATIONS: The National Osteoporosis Foundation recommends pharmacologic treatment for patients with T-scores of -2.5 or less, patients with prior history of fragility fractures, or patients with 10-year probability of greater than 3% at hips or greater than 20% of suffering major osteoporotic fractures. Recommend continued optimization of calcium and vitamin D intake through dietary means and/or supplementation and regular exercise. Consider pharmacologic therapy for osteoporosis. Follow-up bone density reading in 2 years if therapy initiated to assess therapeutic efficacy. Nedra Salinas PA-C [facility] 09/27/2023 Narrative 09/27/2023 1:35 PM CDT For Patients: Results are automatically released to your [facility] ([employer]) account once available, in compliance with federal regulations. This means that you may see your results before your provider has had a chance to review them. Please allow 2-3 business days for your provider to comment on the results. XR DXA Bone Mineral Density (BMD) EXAM LOCATION: [address] [address] PATIENT NAME: Guadalupe Deng DATE OF : 1940 EXAM DATE: 09/22/2023 REQUESTING PROVIDER: Frannie Allison MD GENDER AT : female HEIGHT: 5' 3 (06/07/2023) WEIGHT: 106 lb 9.6 oz (09/22/2023) MENOPAUSAL STATUS: Postmenopausal RACE/ETHNICITY: White RISK FACTORS: History of Fragility Fracture (at a major site), Weight < 127 lbs., and White Race CURRENT MEDICATION FOR BONE LOSS: Raloxifene (Evista) INDICATION: Osteoporosis, unspecified osteoporosis type, unspecified pathological fracture presence COMPARISON DATE(S): 2020 DXA scans are compared to prior studies for a patient only when the two (or more) studies were performed on the same scanner. It is not possible to compare data generated on one scanner to data from another because there are not standards in DXA equipment. This applies even if the two scanners are made by the same evaporator. PROCEDURE: Dual-energy x-ray absorptiometry performed with routine technique. Reporting is completed in the form of a T-score. The T-score represents the standard deviation from peak bone mass based on young healthy adult. A Z-score is used for diagnosis in premenopausal women, and for men under the age of 50. FINDINGS: RESULT LUMBAR SPINE L1 - L4 BMD: 0.876 g/cm2 T-Score: - 2.5 Z-Score: - 0.1 Change from prior in 2020: Decrease 7.6%. RESULTS FEMUR Left femoral neck BMD: 0.681 g/cm2 T-Score: - 2.6 Z-Score: + 0.1 Change from prior in 2020: Decrease 6.3%. Right femoral neck BMD: 0.683 g/cm2 T-Score: - 2.6 Z-Score: + 0.1 Change from prior in 2020: Decrease 7.6%. Left hip BMD: 0.642 g/cm2 T-Score: - 2.9 Z-Score: - 0.3 Change from prior in 2020: Decrease 7.6%. Right hip BMD: 0.604 g/cm2 T-Score: - 3.2 Z-Score: - 0.6 Change from prior in 2020: Decrease 9.4%. 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
[2024-03-05 11:33] LABS: Basophils Percent Auto 0.2 % (0.0-3.0); Eosinophils Percent Auto 0.2 % (0.0-7.0); Hemoglobin* 14.2 gm/dL (12.0-16.0); Immature Granulocytes Pct Auto 0.3 %; Lymphocytes Percent Auto 10.1 % (20-44); Mean Corpuscular HGB Conc 32 gm/dL (32-36); Mean Corpuscular Hemoglobin 29 pg (26-34); Mean Corpuscular Volume 91 fL (80-100); Monocytes Percent Auto 9.4 % (0.0-11.0); Neutrophils Percent Auto 79.8 % (42.0-72.0); Platelet Count* 229 K/uL (140-440); Red Blood Count 4.83 m/uL (4.00-5.20); White Blood Count* 11.08 K/uL (4.50-11.00)
[2024-03-05 11:36] VITALS: BP 154/97; PULSE 54; RESP 16; O2SAT 96
[2024-03-05 11:38] LABS: Slide Review Reflex No
[2024-03-05 11:50] LABS: Chloride* 99 mmol/L (96-114)
[2024-03-05 11:51] LABS: Potassium* 4.4 mmol/L (3.6-5.1); Sodium* 135 mmol/L (135-149)
[2024-03-05 11:53] LABS: Creatinine* 0.6 mg/dL (0.5-1.5); Estimated Glomerular Filt Rate 88 ml/min
[2024-03-05 11:54] LABS: Anion Gap 9 mEq/L (7-15); Blood Urea Nitrogen* 18 mg/dL (7-30); Calcium* 9.9 mg/dL (8.4-10.6); Carbon Dioxide* 27 mmol/L (20-32); Glucose* 115 mg/dL (60-115)
== END 2024-03-05 12:39 | disposition home or self-care (01) ==
PROVIDERS: Emergency Provider Emergency Medicine; PCP Family Medicine
DX: M54.2 Cervicalgia (principal); W19.XXXA Unspecified fall, initial encounter; Z79.01 Long term (current) use of anticoagulants
CPT/HCPCS: 36415; 70450; 72125; 80048; 85025; 93005; 99283; 99284; 99285

== ENCOUNTER 2024-04-19 22:20 | Outpatient (CLI) | payer MEDICARE, BC, SELFPAY | END 2024-04-19 22:21 | disposition home or self-care (01) | LOC: AMB 05-17 02:48 | PROVIDERS: PCP Family Medicine; Visit Provider Family Medicine | DX: R03.0 Elevated blood-pressure reading, without diagnosis of hypertension (principal); U07.1 COVID-19 | CPT/HCPCS: A0425; A0427 ==

== ENCOUNTER 2024-04-19 22:31 | Emergency (ER) | payer MEDICARE, BC, SELFPAY ==
--- OUTSIDE RECORDS SUMMARY | 2024-04-19 22:32 | XMS_ITS | Continuity of Care Document ---
Author Name [facility] User [email or web address] Address Unknown Organization Unknown Address Unknown Procedures FILTER APPLIED:Only known Procedures with Onset Date within the last 5 years Procedure Date Procedure Provider Additiona l Information Status EMERGENCY DEPT VISIT SF MDM (16411) Completed EMERGENCY DEPT VISIT LOW MDM (79228) Completed METABOLIC PANEL TOTAL CA (91415) Completed EMERGENCY DEPT VISIT MOD MDM (49039) Completed ROUTINE VENIPUNCTURE (62910) Completed ELECTROCARDIOGRAM TRACING (40240) Completed COMPLETE CBC W/AUTO DIFF WBC (02606) Completed Encounters FILTER APPLIED:Only known Encounters with Admission Date within the last 5 years Encounter Location Admission Discharge Billing Code Hub [facility] Ar[facility]do l[facility]z [facility]
--- OUTSIDE RECORDS SUMMARY | 2024-04-19 22:32 | XMS_ITS | Clinical Summary ---
[facility] Organization [facility] Address [place], [place] [address] Care Team Providers Care Repair Mechanic Name Role Phone Frannie Allison MD Primary Care Prov ider Tonya Norwood MD Unavailable [phone] Joie Magdaleno PharmD Unavailable [phone] Allergies Active Allergy Reactions Criticality Noted Date Comments Amoxicillin Rash 09/02/2006 Cefuroxime Hives 09/02/2006 Cephalosporins Hives Low 12/04/2018 Iodinated Contrast Media Itching,Mouth/J aw Spasm 05/21/2008 Pt reports itching in her eyes and a bubbling petroleum feel in her mouth. Diatrizoate Allergen Itching High 12/04/2018 Doxycycline Nausea Only 07/13/2013 Gadodiamide Itching High 12/04/2018 Latex Rash 05/23/2022 Penicillin V Rash Low 12/04/2018 Medications MULTIVITAMIN TAB one tablet daily 0 0 07 Active Sodium Chloride-Aloe Vera (AYR SALINE GEL) spry Inhale in the nostril(s). 0 03/01/20 14 Active glucosamine-nancy droitin, 500-400 mg, (COSAMIN DS 500/400) 500-400 mg cap Take 2 capsules daily 0 04/01/20 14 Active WalkerIndication s:Hip pain, left Walker for home use. 1 Device 10/03/19 17 Active acetaminophen (TYLENOL EXTRA STRGTH) 500 mg tablet Take 1 tablet by mouth every 6 hours if needed. Max acetaminophen dose: 4000mg in 24 hrs. 0 11/07/19 19 Active hydrocortisone 2.5% cream apply to the lips twice daily for 2 weeks at a time. repeat as needed for flares 05/23/19 21 Active Chlorpheniramine -DM 4-30 mg tab Daily as needed Active dilTIAZem CD (CARDIZEM CD) 120 mg extended release 24 hr capsuleIndicatio ns:Permanent atrial fibrillation (HC) Take 1 Capsule (120 mg) by mouth once daily. HOLD until patient calls 90 Capsule 3 12/14/19 24 Active azithromycin (ZITHROMAX) 500 mg tabletIndication s:Aortic valve stenosis, severe TAKE 500MG BY MOUTH 30 - 60 MINUTES PRIOR TO DENTAL PROCEDURE. 3 Tablet 5 12/14/19 24 Active alendronate (FOSAMAX) 70 mg tabletIndication s:Osteoporosis, unspecified osteoporosis type, unspecified pathological fracture presence TAKE 1 TABLET BY MOUTH. EVERY WEEK 30 MIN. BEFORE BREAKFAST WITH WATER, STAY UPRIGHT FOR 30 MIN. 4 Tablet 01/27/20 24 Active calcium carbonate-vitami n D3, 500 mg-400 units, (Oyster Shell Calcium-Vit D3) tabletIndication s:Osteoporosis, unspecified osteoporosis type, unspecified pathological fracture presence TAKE 1 TABLET BY MOUTH ONCE DAILY 90 Tablet 01/27/20 24 Active lisinopriL (PRINIVIL; ZESTRIL) 10 mg tabletIndication s:Aortic ectasia (HC) TAKE 1 AND 1/2 TABLETS (15 MG) BY MOUTH ONCE DAILY;TAKE 1 TABLET BY MOUTH AT BEDTIME 135 Tablet 01/27/20 24 Active apixaban (Eliquis) 2.5 mg tabletIndication s:Permanent atrial fibrillation (HC) TAKE 1 TABLET BY MOUTH TWICE DAILY 180 Tablet 01/27/20 24 Active atorvastatin (LIPITOR) 10 mg tabletIndication s:Hypercholester emia TAKE 1 TABLET BY MOUTH EVERY MORNING 90 Tablet 01/27/20 24 Active sertraline (ZOLOFT) 25 mg tabletIndication s:Anxiety Take 1 Tablet (25 mg) by mouth once daily in the morning. 30 Tablet 11 01/27/20 24 Active pantoprazole (PROTONIX) 20 mg tabletIndication s:Heartburn Take 1 Tablet (20 mg) by mouth once daily. 30 Tablet 11 01/27/20 24 Active Active Problems Problem Noted Date Diagnosed Date AF (atrial fibrillation) 10/05/2022 Aortic insufficiency 10/05/2022 Aortic stenosis 10/05/2022 Overview (10/05/2022): AVR 5/ Arthritis 10/05/2022 Overview (10/05/2022): knee rt--torn menicus, cortisone shot Bicuspid aortic valve 10/05/2022 Overview (10/05/2022): echo 09/18. Needs SBE prophylaxis. Mitral insufficiency 10/05/2022 Overview (10/05/2022): osteopenia, dexa 2006, off Fosamax 10/14 COVID-19 10/04/2022 Overview (10/05/2022): 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, CT HEAD/BRAIN W/O CONTRAST, 03/05/2024 03/05/2024 Orders Only [facility] Scanner 1 scan: (1-Ord) [facility] CT CERVICAL SPINE WO CON, 03/05/2024 03/05/2024 Telephone [facility] [address] [place] [address] Frannie Allison MD Blood Pressure 01/26/2024 Patient Outreach [facility] Care Management - Advanced Care Team [facility] [place], [place] [id number] Tamara De La Garza Medication Management (COMPREHENSIVE MEDICATION REVIEW - PROVIDER REFERRAL - ACO REACH) 01/24/2024 Refill [facility] [address] [place] [address] Frannie Allison MD Refill Request (Alendronate, Oyster Shell Calcium-vit D3, Lisinopril, Eliquis, Atorvastatin) from Last 3 Months Immunizations Name Administration Dates Next Due AMB Influenza, IIV3 (Age >=3 years)(Flu Clinic Only) 12/29/2011 COVID-19 vaccine ([facility] 30mcg/0.3mL) JOSE LUIS ALVARADO 06/07/2020,05/17/2020 Influenza, High-dose [...] drink = 0.6 oz pur e alcohol) [facility] Utilities Answer Date Recorded Do you have trouble paying f or utilities (for example, heat, electricity, water, phone)? Yes 10/05/2023 PHQ-2 Answer Date Recorded PHQ-2 TOTAL SCORE [...] is your housing situation today? 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 Gender Identity Not on file Sexual Orientation Not on file Occupation Industry Job Start Date Job End Date retired Not on file Not on file Not on file Obstetrics History Para Term [...] 36.5 C (97.7 F) 03/10/2021 10:57 AM INTERNAL COMBUSTION ENGINE INSPECTOR Respiratory Rate 18 09/16/2020 10:07 AM CDT [...] 07/01/2020, Additional history exists COVID-19 vaccine series () 12/11/2023 03/08/2023, 12/29/2021, 07/27/2021, Additional history exists Influenza for age 65+ 12/11/2023 12/11/2021 , 12/12/2020, 11/27/2019, Additional history exists BMI (ht and wt on same day) for age 18+ 12/13/2024 12/14/2023, 06/07/2023, 09/08/2022, Additional history exists Medicare Wellness for age 65+ 12/14/2024, 09/08/2022, 08/31/2021, Additional history exists Tetanus booster 08/25/2030 08/25/2020, 07/11, 06/24/2005, Additional history exists Pneumococcal series for age 50+ Completed 5, 09/02/2006 Zoster (shingles) series for age 50+ Completed 03/13/2018, 12/10/2017, 01/05/2007 Tdap Completed 08/25/2020, 07/30/2010 DEXA/DXA scan for age 65+ Completed 2023, 10/16/2020, 10/10/2018, Additional history exists Medical Devices Implanted Type Area Buffer Nickel Device Identifier Shelf Expiration Date Model / Serial / Lot Valve Magna [id number] Sz 21 - [id number] Implanted:Qty: 1 on 08/17/2010 at [facility] N/A: Aortic Valve Diavibe 10/27/2013 [id number] / [id number] / Procedures Procedure Name Priority Date/Time Associated Diagnosis Comments SCAN-CT INTERPRETATION 4 12:00 AM INTERNAL COMBUSTION ENGINE INSPECTOR SCAN-CT INTERPRETATION 4 12:00 AM INTERNAL COMBUSTION ENGINE INSPECTOR XR DXA BONE DENSITY 2 SITES AXIAL Routine 09/22/2023 11:32 AM CDT Osteoporosis, unspecified osteoporosis type, unspecified pathological fracture presence from Last 3 Months or Most Recently Relevant to Health Maintenance Results * SCAN-CT INTERPRETATION (03/05/2024 12:00 AM INTERNAL COMBUSTION ENGINE INSPECTOR) Only the most recent of2 resultswithin the time period is included. Anatomical Region Laterality Modality Other us Scanner OTHER Final Result * (ABNORMAL) XR DXA BONE DENSITY 2 [...] to assess therapeutic efficacy. Nedra Salinas PA-C [facility] 09/27/2023 Narrative 09/27/2023 1:35 PM CDT For Patients: Results are automatically released to [facility] account once available, in compliance with federal regulations. This means that you may see your results before your provider has had a chance to review them. Please allow 2-3 business days for your provider to comment on the results. XR DXA Bone Mineral Density (BMD) EXAM LOCATION: [facility] [address] [facility] [address] PATIENT NAME: Guadalupe Deng DATE OF : [...] two scanners are made by the same rug touch up painter. PROCEDURE: Dual-energy x-ray absorptiometry performed with routine [...] below -2.5 SD Frannie Allison MD DEXA Fi nal Result from Last 3 Months or Most Recently Relevant to Health Maintenance Insurance MEDICARE PB ONLY MEDICARE PART B HB ONLY MEDICARE PART A HB ONLY BLUE [place] FED EMP Advance Directives Documents on File Type Date Recorded Patient Estimation Manager Expl anation POL 02/07/2024 Healthcare Directive 07/29/2011 HEALTH CARE DIRECTIVE, [facility], 06/29/2011 * Full Code (Latest Code [...] 1:26 PM 08/13/2010 1:43 PM Care Teams Repair Mechanic Relationship Specialty Start Date End Date Frannie Allison MD [address] [place] [address] PCP - General Family Practice 03/09/12 Tonya Norwood MD [address] [place] [address] Consulting Physician Cardiovascular Disease 08/29/14 Joie Magdaleno, PharmD [address] [place] [address] JOSHUA Garcia [phone] Pharmacist Medication Management Pharmacology 01/26/24 01/25/27
[2024-04-19 22:36] VITALS: BP 174/128; PULSE 113; RESP 20; TEMP 37; O2SAT 95
--- NOTE | 2024-04-19 23:03 | CRLHL7_ITS ---
For Patients: As a result of the Cures Act, medical imaging exams and procedure reports are released immediately into your electronic medical record. You may view this report before your referring provider. If you have questions, please contact your health care provider. INDICATION: Atrial fibrillation TECHNIQUE: Chest radiograph 1 view COMPARISON: 10/04/2022 FINDINGS: Mediastinum: Previous median sternotomy with aortic valve replacement noted. Mild, stable cardiomegaly is noted. Lung: Both lungs are unremarkable in appearance. No sign of pleural effusion seen. No pneumothorax is identified. Bone and Soft tissue: Unremarkable for age. Left chest wall is obscured by an overlying metallic wire while the right is obscured by the patient`s hand. IMPRESSION: 1. Mild, stable cardiomegaly is noted. Dictated by Sam Benites MD @ 04/19/2024 11:20:34 PM Dictated by: Sam Benites MD @ 04/19/2024 23:20:41 (Electronically Signed)
--- NOTE | 2024-04-19 23:11 | ED_ITS ---
HPI - General Adult General Chief complaint: Unspecified Complaint, Adult Stated complaint: covid positive, hypertension, tachy Time Seen by Provider: 04/19/24 22:46 Source: patient and EMS Mode of arrival: EMS Limitations: other (Dementia) History of Present Illness HPI narrative: 83-year-old female brought in by EMS because of irregular heart rate and elevated blood pressure. Known to be COVID positive. Interestingly, she has a known history of chronic AFib, this is not new. She denies chest pain. There was no hypoxia. She lives in a memory care unit. She has not had any other signs of decompensation per EMS because of her COVID. She does endorse a mild cough. She is anticoagulated on Eliquis. To me she denies any nausea or vomiting. No diarrhea. She was incontinent of urine upon arrival. She does smell strongly of urine. No falls, trauma or injury. Past medical history per the records that accompany her show history of chronic AFib, prosthetic heart valve, dementia, hypertension, osteoporosis and depression. Intake paperwork is reviewed. Code status is a note. Primary care provider is through line a. ROS is notable for the elevated blood pressure and heart rate per EMS, patient denies times 12 systems. Related Data Home Medications ?Medication ?Instructions ?Recorded ?Confirmed atorvastatin 10 mg tablet 10 mg PO ONCE 05/23/22 03/05/24 azithromycin 250 mg tablet 500 mg PO PRN 05/23/22 03/05/24 glucosamine-chondroitin 500 mg-400 2 tab PO DAILY 05/23/22 03/05/24 mg tablet (Cosamin DS) lisinopril 10 mg tablet 10 mg PO BID 05/23/22 03/05/24 raloxifene 60 mg tablet 60 mg PO DAILY 05/23/22 07/30/23 diltiazem HCl 120 mg 120 mg PO DAILY 07/30/23 03/05/24 capsule,extended release 24 hr alendronate 70 mg tablet 70 mg PO 03/05/24 apixaban 2.5 mg tablet (Eliquis) 2.5 mg PO BID 03/05/24 03/05/24 pantoprazole 20 mg tablet,delayed 20 mg PO DAILY 03/05/24 03/05/24 release sertraline 25 mg tablet 25 mg PO DAILY 03/05/24 03/05/24 Previous Rx's ?Medication ?Instructions ?Recorded apixaban 5 mg (74 tabs) tablets in See Rx Instructions PO .COMPLEX 05/23/22 a dose pack (Eliquis DVT-PE Treat #74 ea 30D Start) methylprednisolone 4 mg tablets in See Rx Instructions PO .COMPLEX 07/30/23 a dose pack (Medrol (Chele)) #21 ea Allergies Allergy/AdvReac Type Severity Reaction Status Date / Time gadodiamide Allergy Intermediate itching Verified 11/11/22 10:57 Cephalosporins Allergy Mild Hives Verified 11/11/22 10:57 penicillin V Allergy Mild Rash Verified 11/11/22 10:57 amoxicillin AdvReac Rash Verified 11/11/22 10:57 cefuroxime (From Ceftin) AdvReac Hives Verified 11/11/22 10:57 diatrizoate meglumine AdvReac itching Verified 11/11/22 10:57 doxycycline AdvReac Nausea Verified 11/11/22 10:57 latex AdvReac Verified 11/11/22 10:57 contrast dye AdvReac Uncoded 11/11/22 10:57 PFSH PFS Medical History Colonic polyp ?K63.5 - Polyp of colon (ICD-10) Atrial fibrillation ?I48.91 - Unspecified atrial fibrillation (ICD-10) HTN (hypertension) ?I10 - Essential (primary) hypertension (ICD-10) Bicuspid aortic valve ?Q23.1 - Congenital insufficiency of aortic valve (ICD-10) Arthritis ?M19.90 - Unspecified osteoarthritis, unspecified site (ICD-10) Aortic stenosis ?I35.0 - Nonrheumatic aortic (valve) stenosis (ICD-10) Surgical History H/O vein stripping ?Z98.890 - Other specified postprocedural states (ICD-10) Hx of tonsillectomy ?Z90.89 - Acquired absence of other organs (ICD-10) Status post ORIF of fracture of ankle (10/21/18) ?Z98.890 - Other specified postprocedural states (ICD-10) ?Z87.81 - Personal history of (healed) traumatic fracture (ICD-10) 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 - Presence of prosthetic heart valve (ICD-10) Social History Smoking Status: Never smoker Do you use any of these nicotine containing products: None Second hand tobacco smoke exposure: No How often do you have a drink containing alcohol: never How often do you have six or more drinks on one occasion: Never AUDIT-C Alcohol total score: 0 Non-prescribed substance use: denies use Exam Const: Vital Signs, click to edit/add: Vital Signs - 24 hr 04/19/24 22:36 04/19/24 23:25 Temperature 98.6 F Pulse Rate [Pulse Oximeter] 113 H 95 Respiratory Rate 20 16 Blood Pressure [Ri ght Upper Arm] 174/128 H 184/128 H Pulse Oximetry 95 97 Oxygen Delivery Me thod Room Air Room Air Common normals: no apparent distress and alert General appearance: cooperative and comfortable HENMT: Common normals: normocephalic, moist oral mucous membranes and oropharynx normal Head and scalp: normocephalic Face and sinus: normal facial exam Mouth: oral and palatal mucosa normal Eye: Common normals: EOMs intact bilaterally and conjunctivae normal General eye: normal appearance of both eyes Conjunctiva: conjunctiva(e) normal Neck & C-Spine: General: normal visual inspection Resp: Common normals: normal respiratory effort, no use of accessory muscles and clear to auscultation bilaterally Auscultation: clear to auscultation bilaterally Cardio: Other: Irregular rate, systolic murmur consistent with history. Rate is around 100 at the time of my auscultation. GI: Common normals: Normal to inspection, nondistended, normoactive bowel sounds present, soft to palpation, non-tender and no hepatosplenomegaly Pa lpation: soft and no hepatosplenomegaly Extremity: Other: 1+ edema to the knee bilaterally, symmet fariba Neuro: Common normals: moves all extremities Sensorium/orientation: alert Psych: Activity/motor behavior: appropriate eye contact Other: Insight poor. Friendly and cooperative. Will follow commands for me. Skin: Common normals: no rashes or lesions noted General skin exam: no rashes or lesions noted Course Course ED Course: 83-year-old female presenting with elevated blood pressure, known AFib. No signs of acute stroke. No hypoxia. Will double check some blood work to make sure there are no overwhelming signs of infection, EKG, portable chest x-ray, urinalysis. Will give metoprolol 25 mg p.o. x1 and monitor. Suspect that she w ill be able to be discharged back to her assisted living. Reevaluation(s) Time of Reevaluation #1: 01:03 Reevaluation #1: Patient counseled on lab findings, mostly reassuring. Sodium is a little low but she does tend to run in the low 130s. Did bolus the 0.5 L of normal saline just to help counteract this. Pulse is in the 80s. I suspect that this is all just reactive from her COVID but there are no signs of severe respiratory distress or other abnormality. I think she is safe to go back home and continue routine care. Alarm symptoms reviewed that would warrant return to the emergency department. Written instructions provided. EMS will transfer back to her memory care unit. Vital Signs Vital signs: Initial Vital Signs Temperature 98.6 F 04/19/24 22:36 Temperature Source Temporal Artery Scan 04/19/24 22:36 Pulse Rate 113 H 04/19/24 22:36 Pulse Rhythm Irregular 04/19/24 22:36 Respiratory Rate 20 04/19/24 22:36 Blood Pressure 174/128 H 04/19/24 22:36 Blood Pressure Mean 143 H 04/19/24 22:36 Blood Pressure Position Supine 04/19/24 22:36 Pulse Oximetry 95 04/19/24 22:36 Oxygen Delivery Method Room Air 04/19/24 22:36 Vital Signs Temperature 98.6 F 04/19/24 22:36 Pulse Rate 113 H 04/19/24 22:36 Respiratory Rate 20 04/19/24 22:36 Blood Pressure 174/128 H 04/19/24 22:36 Pulse Oximetry 95 04/19/24 22:36 Oxygen Delivery Method Room Air 04/19/24 22:36 Temperature 98.6 F 04/19/24 22:36 Pulse Rate 95 04/19/24 23:25 Respiratory Rate 16 04/19/24 23:25 Blood Pressure 184/128 H 04/19/24 23:25 Pulse Oximetry 97 04/19/24 23:25 Oxygen Delivery Method Room Air 04/19/24 23:25 Medications Administered Medications: Generic Name Dose Route Start Last Admin Trade Name Freq PRN Reason Stop Dose Admin Sodium Chloride 500 mls @ 500 mls/hr 04/20/24 00:16 04/20/24 00:53 0.9 % Sodium Chloride 500 Ml IV 04/20/24 01:15 Infused .Q1H ONE Infusion Discontinued Medications Generic Name Dose Route Start Last Admin Trade Name Jude PRN Reason Stop Dose Admin Metoprolol Tartrate 25 mg 04/19/24 23:18 04/19/24 23:24 Metoprolol Tartrate 25 Mg Tablet PO 04/19/24 23:19 25 mg ONCE ONE Administration Medical Decision Making Lab Data Lab results reviewed: Yes I reviewed the patient's lab results Lab results narrative: No significant leukocytosis, no severe anemia. Electrolytes are essentially reassuring. Sodium does run slightly low typically. Certainly not critical but will give 0.5 L of normal saline. C-reactive protein mildly elevated but could be explained by her COVID. Labs: Lab Results 04/19/24 04/19/24 Range/Units 23:03 23:35 WBC 9.19 (4.50-11.00) K/uL RBC 4.55 (4.00-5.20) m/uL Hgb 12.9 (12.0-16.0) gm/dL Hct 39.7 (33.0-51.0) % MCV 87 (80-100) fL MCH 28 (26-34) pg MCHC 33 (32-36) gm/dL RDW Coeff of Shawn 13.1 (11.5-15.5) % Plt Count 286 (140-440) K/uL Neut % (Auto) 82.2 H (42.0-72.0) % Lymph % (Auto) 6.9 L (20-44) % [place] % (Auto) 10.3 (0.0-11.0) % Eos % (Auto) 0.0 (0.0-7.0) % Baso % (Auto) 0.2 (0.0-3.0) % Neut # (Auto) 7.60 H (1.7-7.0) K/uL Lymph # (Auto) 0.60 L (0.90-2.90) K/uL [place] # (Auto) 0.90 (0.00-0.90) K/UL Eos # (Auto) 0.00 (0.00-0.50) K/uL Baso # (Auto) 0.02 (0.00-0.30) K/uL Abs Immat Gran (auto) 0.04 (0.00-0.30) K/uL Imm/Tot Granulo (auto) 0.4 % Sodium 129 L (135-149) mmol/L Potassium 4.2 (3.6-5.1) mmol/L Chloride 94 L (96-114) mmol/L Carbon Dioxide 28 (20-32) mmol/L Anion Gap 7 (7-15) mEq/L BUN 18 (7-30) mg/dL Creatinine 0.6 (0.5-1.5) mg/dL Estimated GFR 88 ml/min Glucose 130 H (60-115) mg/dL Calcium 9.3 (8.4-10.6) mg/dL Total Bilirubin 0.8 (0.1-1.5) mg/dL AST 29 (12-35) U/L ALT 32 (4-35) U/L Alkaline Phosphatase 114 (40-150) U/L C-Reactive Protein 2.9 H (0.5-1.0) mg/dL NT-Pro-B Natriuret Pep 1320 pg/mL Total Protein 7.6 (6.0-8.3) g/dL Albumin 4.2 (3.3-5.0) g/dL POC Troponin I 0.01 (0.01-0.04) ng/ml Imaging Data Chest x-ray: Attestation: I have reviewed the pertinent imaging results. My impression: No infiltrates or heart failure Radiologist's impression: IMPRESSION: 1. Mild, stable cardiomegaly is noted. Dictated by Sam Benites MD @ 04/19/2024 11:20:34 PM ECG Data Attestation: I personally reviewed and interpreted this ECG as follows: Prior ECG tracings: available for review Interpretation: Comparison EKG AFib with rate of 100. No significant ST or T-wave abnormalities. Similar appearance to prior EKG other than elevated heart rate. Stable intervals and axis Discharge Plan Discharge Clinical Impression: Atrial fibrillation Patient Disposition: Home w/ Parent or Adult Additional Instructions: As we discussed, your heart rate is a little higher than usual in your blood pressure is a little higher secondary to COVID. You were given a little bit of IV fluid to help with hydration. There were no signs of significant electrolyte abnormalities, kidney disease, heart attack, heart failure or severe infection. This is good news. Continue taking your diltiazem as prescribed. Keep pushing fluids. If there are any significant signs of severe weakness, chest pain or other abnormality, please return to the emergency department. Activity Level: Activity as Tolerated Discharge Diet: Regular Prescriptions: No Action diltiazem HCl 120 mg capsule,extended release 24hr 120 mg PO DAILY methylprednisolone [Medrol (Chele)] 4 mg tablets,dose pack See Rx Instructions .ROUTE .COMPLEX Qty: 21 0RF Rx Instructions: orally per package directions alendronate 70 mg tablet 70 mg PO pantoprazole 20 mg tablet,delayed release (DR/EC) 20 mg PO DAILY sertraline 25 mg tablet 25 mg PO DAILY Eliquis 2.5 mg tablet 2.5 mg PO BID atorvastatin 10 mg tablet 10 mg PO ONCE Patient Comments: TAKE ONE TABLET BY MOUTH ONE TIME DAILY azithromycin 250 mg tablet 500 mg PO PRN Rx Instructions: 30-60 mins prior to dental procedure lisinopril 10 mg tablet 10 mg PO BID Patient Comments: TAKE 1.5 TABLETS BY MOUTH IN MORNING AND 1 TABLET IN EVENING raloxifene 60 mg tablet 60 mg PO DAILY Patient Comments: TAKE ONE TABLET BY MOUTH ONE TIME DAILY glucosamine-chondroitin [Cosamin DS] 500-400 mg tablet 2 tab PO DAILY Eliquis DVT-PE Treat 30D Start 5 mg (74 tabs) tablets,dose pack See Rx Instructions PO .COMPLEX Qty: 74 0RF Rx Instructions: orally per package directions Follow Up/Referrals: Frannie Allison MD [Primary Care Provider] - Stand Alone Forms: Side.Cr Info Instructions
[2024-04-19] MEDS: METOPROLOL TARTRATE 25 MG TABLET PO (23:24)
[2024-04-19 23:25] VITALS: BP 184/128; PULSE 95; RESP 16; O2SAT 97
--- OUTSIDE RECORDS SUMMARY | 2024-04-19 23:32 | XMS_ITS | Continuity of Care Document ---
Author Name [facility] User [email or web address] Address Unknown Organization Unknown Address Unknown Procedures FILTER APPLIED:Only known Procedures with Onset Date within the last 5 years Procedure Date Procedure Provider Additiona l Information Status EMERGENCY DEPT VISIT SF MDM (61350) Completed EMERGENCY DEPT VISIT LOW MDM (83528) Completed METABOLIC PANEL TOTAL CA (07552) Completed EMERGENCY DEPT VISIT MOD MDM (47074) Completed ROUTINE VENIPUNCTURE (49626) Completed ELECTROCARDIOGRAM TRACING (52248) Completed COMPLETE CBC W/AUTO DIFF WBC (93506) Completed Encounters FILTER APPLIED:Only known Encounters with Admission Date within the last 5 years Encounter Location Admission Discharge Billing Code [facility] Professor Arnaldo lainez [facility]
--- OUTSIDE RECORDS SUMMARY | 2024-04-19 23:32 | XMS_ITS | Clinical Summary ---
Author Organization [facility] Address [place], [place] [address] Care Team Providers Care Cross Country Truck Driver Name Role Phone Frannie Allison MD Primary Care Prov ider Tonya Norwood MD Unavailable [phone] Joie Magdaleno PharmD Unavailable [phone] Allergies Active Allergy Reactions Criticality Noted Date [...] off Fosamax 10/14 COVID-19 10/04/2022 Overview (10/05/2022): [facility] SBE (subacute bacterial endocarditis) prophylaxi [...] work Third agent: Yuri Ish Relationship: son [phone] Cell Patient has Advance Care Plan Documents [...] atrial fibrillation 11/06/2018 08/31/2021 Polyuria 10/26/2010 09/26/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 08/25/2010 10/05/2010 Overview [...] Type Department Care Team Description 04/19/2024 Telephone [facility] [address] [place] [address] Frannie Allison MD Covid-19 Positive Result 03/05/2024 Orders Only [facility] Scanner 1 scan: (1-Ord) [facility], CT HEAD/BRAIN W/O CONTRAST, 03/05/2024 03/05/2024 Orders Only [facility] Scanner 1 scan: (1-Ord) [facility] CT CERVICAL SPINE WO CON, 03/05/2024 03/05/2024 Telephone [facility] [address] [place] [address] Frannie Allison MD Blood Pressure 01/26/2024 Patient Outreach [facility] Care Management - Advanced Care Team Formerly [facility], [facility] [place], [place] [id number] Tamara De La Garza Medication Management (COMPREHENSIVE MEDICATION REVIEW - PROVIDER REFERRAL - ACO REACH) 01/24/2024 Refill [facility] [address] [place] [address] Frannie Allison MD Refill Request (Alendronate, Oyster Shell Calcium-vit D3, Lisinopril, Eliquis, Atorvastatin) from Last 3 Months Immunizations Name Administration Dates Next Due AMB Influenza, IIV3 (Age >=3 years)(Flu Clinic Only) 12/29/2011 COVID-19 vaccine ([place] NTHoppit 30mcg/0.3mL) JOSE LUIS ALVARADO 06/07/2020,05/17/2020 Influenza, High-dose [...] drink = 0.6 oz pur e alcohol) [facility] Utilities Answer Date Recorded Do you [...] on file 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 Gender Identity Not on file Sexual Orientation [...] 36.5 C (97.7 F) 03/10/2021 10:57 AM RV MECHANIC Respiratory Rate 18 09/16/2020 10:07 AM CDT [...] history exists Medical Devices Implanted Type Area Media Consultant Outside Sales Device Identifier Shelf Expiration Date Model / Serial / Lot Valve Magna 3000tfx Sz 21 - [id number] Implanted:Qty: 1 on 08/17/2010 at [facility] N/A: Aortic Valve Qiro 10/27/2013 [id number] / [id number] / Procedures Procedure Name Priority Date/Time Associated Diagnosis Comments SCAN-CT INTERPRETATION 4 12:00 AM RV MECHANIC SCAN-CT INTERPRETATION 4 12:00 AM RV MECHANIC XR DXA BONE DENSITY 2 SITES AXIAL Routine 09/22/2023 11:32 AM CDT Osteoporosis, unspecified osteoporosis type, unspecified pathological fracture presence from Last 3 Months or Most Recently Relevant to Health Maintenance Results * SCAN-CT INTERPRETATION (03/05/2024 12:00 AM RV MECHANIC) Only the most recent of2 resultswithin the [...] to assess therapeutic efficacy. Nedra Salinas PA-C [facility] 09/27/2023 Narrative 09/27/2023 1:35 PM CDT For Patients: Results are automatically released to your [facility] ([employer]) account once available, in compliance with federal regulations. This means that you may see your results before your provider has had a chance to review them. Please allow 2-3 business days for your provider to comment on the results. XR DXA Bone Mineral Density (BMD) EXAM LOCATION: [facility] [address] [facility] [address] PATIENT NAME: Guadalupe Deng DATE OF : [...] two scanners are made by the same cloth bleaching supervisor. 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
[2024-04-19 23:41] LABS: Basophils Absolute Auto 0.02 K/uL (0.00-0.30); Basophils Percent Auto 0.2 % (0.0-3.0); Hematocrit 39.7 % (33.0-51.0); Hemoglobin* 12.9 gm/dL (12.0-16.0); Immature Granulocytes Abs Auto 0.04 K/uL (0.00-0.30); Immature Granulocytes Pct Auto 0.4 %; Lymphocytes Percent Auto 6.9 % (20-44); Mean Corpuscular HGB Conc 33 gm/dL (32-36); Mean Corpuscular Hemoglobin 28 pg (26-34); Mean Corpuscular Volume 87 fL (80-100); Monocytes Percent Auto 10.3 % (0.0-11.0); Neutrophils Percent Auto 82.2 % (42.0-72.0); Platelet Count* 286 K/uL (140-440); RDW Coefficient of Variation % 13.1 % (11.5-15.5); Red Blood Count 4.55 m/uL (4.00-5.20); White Blood Count* 9.19 K/uL (4.50-11.00)
[2024-04-19 23:42] LABS: Slide Review Reflex No
[2024-04-19 23:49] LABS: Troponin, Point-of-Care* 0.01 ng/ml (0.01-0.04)
[2024-04-19 23:54] LABS: Albumin* 4.2 g/dL (3.3-5.0); Chloride* 94 mmol/L (96-114)
[2024-04-19 23:55] LABS: Potassium* 4.2 mmol/L (3.6-5.1); Sodium* 129 mmol/L (135-149)
[2024-04-19 23:57] LABS: Alkaline Phosphatase* 114 U/L (40-150); Anion Gap 7 mEq/L (7-15); Aspartate Amino Transferase* 29 U/L (12-35); Bilirubin Total* 0.8 mg/dL (0.1-1.5); Carbon Dioxide* 28 mmol/L (20-32); Creatinine* 0.6 mg/dL (0.5-1.5); Estimated Glomerular Filt Rate 88 ml/min; Total Protein* 7.6 g/dL (6.0-8.3)
[2024-04-19 23:58] LABS: Alanine Aminotransferase* 32 U/L (4-35); Blood Urea Nitrogen* 18 mg/dL (7-30); Calcium* 9.3 mg/dL (8.4-10.6); Glucose* 130 mg/dL (60-115)
[2024-04-20] LABS: C Reactive Protein* 2.9 mg/dL (0.5-1.0)
[2024-04-20 00:11] LABS: NT Pro B Type NatriureticPept* 1320 pg/mL
[2024-04-20] MEDS: 0.9 % SODIUM CHLORIDE 500 ML 500 ML IV (00:26)
--- NOTE | 2024-04-20 01:00 | PC.NURSE ---
Doroteo contacted, spoke to resident aid for DC instructions. contacted dispatch for transport
== END 2024-04-20 01:20 | disposition home or self-care (01) ==
PROVIDERS: Emergency Provider Family Medicine; PCP Family Medicine
DX: I48.91 Unspecified atrial fibrillation (principal)
CPT/HCPCS: 36415; 71045; 80053; 83880; 84484; 85025; 86140; 93005; 99284; 99285; A9270; J7030

== ENCOUNTER 2024-04-20 01:18 | Outpatient (CLI) | payer MEDICARE, BC, SELFPAY | END 2024-04-20 01:19 | disposition home or self-care (01) | LOC: AMB 05-03 07:26 | PROVIDERS: PCP Family Medicine; Visit Provider Family Medicine | DX: U07.1 COVID-19 (principal); R41.82 Altered mental status, unspecified | CPT/HCPCS: A0425; A0428 ==

== ENCOUNTER 2024-05-27 00:19 | Outpatient (CLI) | payer MEDICARE, BC, SELFPAY | END 2024-05-27 00:20 | disposition home or self-care (01) | LOC: AMB 05-28 08:45 | PROVIDERS: PCP Family Medicine; Visit Provider Family Medicine | DX: R06.09 Other forms of dyspnea (principal); R53.1 Weakness; R29.810 Facial weakness | CPT/HCPCS: A0425; A0427 ==

== ENCOUNTER 2024-05-27 00:34 | Observation (INO) | payer MEDICARE, BC, SELFPAY ==
[2024-05-27] VITALS (20 sets, daily range): BP systolic 79–108; BP diastolic 42–90; PULSE 96–133; RESP 18–27; TEMP 36.1–36.7; O2SAT 86–99
--- OUTSIDE RECORDS SUMMARY | 2024-05-27 00:37 | XMS_ITS | Clinical Summary ---
Author Organization [facility] Address [place], [place] [address] Care Team Providers Care Monument Erector Name Role Phone Frannie Allison MD Primary Care Prov ider Tonya Norwood MD Unavailable [phone] Joie Magdaleno PharmD Unavailable Allergies Active [...] off Fosamax 10/14 COVID-19 10/04/2022 Overview (10/05/2022): [facility] Room SBE (subacute bacterial endocarditis) prophylaxi [...] work Third agent: Yuri Ish Relationship: son [phone] Cell Patient has Advance Care Plan Documents [...] atrial fibrillation 11/06/2018 08/31/2021 Polyuria 10/26/2010 09/26/2013 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 [address] [place] [address] Frannie Allison MD Covid-19 Positive Result 03/05/2024 Orders Only [facility] Scanner 1 scan: (1-Ord) [facility], CT HEAD/BRAIN W/O CONTRAST, 03/05/2024 03/05/2024 Orders Only [facility] Scanner 1 scan: (1-Ord) [place], CT CERVICAL SPINE WO CON, 03/05/2024 03/05/[address] [facility] [address] [place] [address] Frannie Allison MD Blood Pressure from Last 3 Months Immunizations Name Administration Dates Next Due AMB Influenza, IIV3 (Age >=3 years)(Flu Clinic Only) 12/29/2011 COVID-19 vaccine ([employer]acio NTech 30mcg/0.3mL) JOSE LUSI ALVARADO 06/07/2020,05/17/2020 Influenza, High-dose Inactivated 019,12/20/2017,12/04/2016,2015,01/01/2015,01/03/2014 Influenza, [...] is your housing situation today? 1 10/05/2023 Utilities Answer Date Recorded Do you have trouble paying f or utilities (for example, heat, electricity, water, phone)? 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 Gender Identity Not on file Sexual Orientation [...] 36.5 C (97.7 F) 03/10/2021 10:57 AM COPY ROOM TECHNICIAN Respiratory Rate 18 09/16/2020 10:07 AM CDT [...] history exists Medical Devices Implanted Type Area Tuck Pointer Helper Device Identifier Shelf Expiration Date Model / Serial / Lot Valve Magna 3000tfx 21 - [id number] Implanted:Qty: 1 on 08/17/2010 at [facility] N/A: Aortic Valve [employer] Torie 10/27/2013 [id number] / [id number] / Procedures Procedure Name Priority Date/Time Associated Diagnosis Comments SCAN-RADIOLOGY REPORT 04/19/2024 12:00 AM COPY ROOM TECHNICIAN SCAN-CT INTERPRETATION 4 12:00 AM COPY ROOM TECHNICIAN SCAN-CT INTERPRETATION 4 12:00 AM COPY ROOM TECHNICIAN XR DXA BONE DENSITY 2 SITES AXIAL Routine 09/22/2023 11:32 AM CDT Osteoporosis, unspecified osteoporosis type, unspecified pathological fracture presence from Last 3 Months or Most Recently Relevant to Health Maintenance Results * SCAN-RADIOLOGY REPORT (04/19/2024 12:00 AM COPY ROOM TECHNICIAN) Anatomical Region Laterality Modality Other us Scanner OTHER Final Result * SCAN-CT INTERPRETATION (03/05/2024 12:00 AM COPY ROOM TECHNICIAN) Only the most recent of2 resultswithin the [...] to assess therapeutic efficacy. Nedra Salinas PA-C [facility] 09/27/2023 Narrative 09/27/2023 1:35 PM CDT For Patients: Results are automatically released to your [facility] ([employer]) account once available, in compliance with federal regulations. This means that you may see your results before your provider has had a chance to review them. Please allow 2-3 business days for your provider to comment on the results. XR DXA Bone Mineral Density (BMD) EXAM LOCATION: [facility] [address] [facility] [address] PATIENT NAME: Guadalupe Deng DATE OF : [...] two scanners are made by the same supervisor rocket propellant plant. 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
--- NOTE | 2024-05-27 00:40 | ED.GENADULT ---
HPI - General Adult General Chief complaint: Neuro Symptoms/Altered Deficit Stated complaint: CVA Time Seen by Provider: 05/27/24 00:37 History of Present Illness HPI narrative: pt presents via [facility] ems from [facility] with R sided weakness and R facial droop. pt has flaccid R arm but movement in R leg on arrival. unable to verbal. gcs 10. pt went straight to CT with MD at bedside. 83-year-old woman brought to the emergency department via EMS [facility] with stroke concerns. Last known well was 9-10 p.m. - clarified later 7:30 p.m.. Arriving here at approximately 12:30 a.m. in the morning. Does suffer from dementia but normally quite interactive. Noted concerns were marked status change in this regard as well as the weakness on right arm and leg and may be some facial droop; side is unclear. Interviewing Ms. Deng, she is not responding verbally nor following commands. It appears that she observes but does not a really interact. Code status noted to be DNR. History of atrial fibrillation anticoagulated with apixaban. Most recently seen with atrial fibrillation here in this emergency department and rate controlled. This was 5 weeks ago. also had COVID Related Data Home Medications ?Medication ?Instructions ?Recorded ?Confirmed atorvastatin 10 mg tablet 10 mg PO ONCE 05/23/22 03/05/24 azithromycin 250 mg tablet 500 mg PO PRN 05/23/22 03/05/24 glucosamine-chondroitin 500 mg-400 2 tab PO DAILY 05/23/22 03/05/24 mg tablet (Cosamin DS) lisinopril 10 mg tablet 10 mg PO BID 05/23/22 03/05/24 raloxifene 60 mg tablet 60 mg PO DAILY 05/23/22 07/30/23 diltiazem HCl 120 mg 120 mg PO DAILY 07/30/23 03/05/24 capsule,extended release 24 hr alendronate 70 mg tablet 70 mg PO 03/05/24 apixaban 2.5 mg tablet (Eliquis) 2.5 mg PO BID 03/05/24 03/05/24 pantoprazole 20 mg tablet,delayed 20 mg PO DAILY 03/05/24 03/05/24 release sertraline 25 mg tablet 25 mg PO DAILY 03/05/24 03/05/24 Previous Rx's ?Medication ?Instructions ?Recorded apixaban 5 mg (74 tabs) tablets in See Rx Instructions PO .COMPLEX 05/23/22 a dose pack (Eliquis DVT-PE Treat #74 ea 30D Start) methylprednisolone 4 mg tablets in See Rx Instructions PO .COMPLEX 07/30/23 a dose pack (Medrol (Chele)) #21 ea Allergies Allergy/AdvReac Type Severity Reaction Status Date / Time gadodiamide Allergy Intermediate itching Verified 05/27/24 01:11 Cephalosporins Allergy Mild Hives Verified 05/27/24 01:11 penicillin V Allergy Mild Rash Verified 05/27/24 01:11 amoxicillin AdvReac Rash Verified 05/27/24 01:11 cefuroxime (From Ceftin) AdvReac Hives Verified 05/27/24 01:11 diatrizoate meglumine AdvReac itching Verified 05/27/24 01:11 doxycycline AdvReac Nausea Verified 05/27/24 01:11 latex AdvReac Verified 05/27/24 01:11 contrast dye AdvReac Uncoded 05/27/24 01:11 Review of Systems Status of ROS: Reports: 6 or more systems reviewed and unremarkable except as noted in History and below [facility] Medical History Colonic polyp ?K63.5 - Polyp of colon (ICD-10) Atrial fibrillation ?I48.91 - Unspecified atrial fibrillation (ICD-10) HTN (hypertension) ?I10 - Essential (primary) hypertension (ICD-10) Bicuspid aortic valve ?Q23.1 - Congenital insufficiency of aortic valve (ICD-10) Arthritis ?M19.90 - Unspecified osteoarthritis, unspecified site (ICD-10) Aortic stenosis ?I35.0 - Nonrheumatic aortic (valve) stenosis (ICD-10) Surgical History H/O vein stripping ?Z98.890 - Other specified postprocedural states (ICD-10) Hx of tonsillectomy ?Z90.89 - Acquired absence of other organs (ICD-10) Status post ORIF of fracture of ankle (10/21/18) ?Z98.890 - Other specified postprocedural states (ICD-10) ?Z87.81 - Personal history of (healed) traumatic fracture (ICD-10) 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 - Presence of prosthetic heart valve (ICD-10) Social History What is your current living situation?: I presently have a place to live Problems where you live: unable to answer Problems where you live details: NA In the past 12 months, utilities in danger of being shut off: unable to answer In past 12 months, lack of transportation kept you from medical appts, meetings, work, or getting things needed for daily living: unable to answer In the past 12 mos, have been you worried that your food would run out before you had money to buy more?: unable to answer In the past 12 mos, the food you bought just didn't last and you didn't have money to buy more?: unable to answer Highest level of school completed/degree received: don't know Non-prescribed substance use details: nishant How often does anyone, including family, friends and others, physically hurt you: unable to answer How often does anyone, including family, friends and others, insult or talk down to you: unable to answer How often does anyone, including family, friends and others, threaten you with harm: unable to answer How often does anyone, including family, friends and others, scream or curse at you: unable to answer Exam Narrative: Exam Narrative: Examining initially in CT. Flatter affect. Calm. Head is atraumatic. Pupils are 3 mm and equal. GCS estimate 10. Extraocular movements appear to be intact and full. Does not interact with requests for participation in exam. Appears to have minimal to no tone in the right arm and none in the right leg leg. Some movement of the toes, present Babinski on the right? Is moving the left side. Oropharynx is a little dry. Breathing easily lungs are appear to be clear. Heart is tachycardic in what appears to be a regular rhythm. Abdomen is soft appears to be nontender. Abdomen soft nontender. Smells of feces plus or minus urine. Const: Vital Signs, click to edit/add: Vital Signs - 24 hr 05/27/24 00:38 05/27/24 00:38 05/27/24 01:00 Temperature 97.6 F Pulse Rate Pulse Rate [Pulse Oximeter] 133 H Respiratory Rate 18 Blood Pressure Blood Pressure [Le ft Upper Arm] 79/42 L Pulse Oximetry 92 92 92 Oxygen Delivery Me thod Room Air Room Air Oxygen Flow Rate 05/27/24 01:34 05/27/24 02:16 05/27/24 02:21 Temperature Pulse Rate 117 H 132 H Pulse Rate [Pulse Oximeter] 122 H Respiratory Rate 22 23 27 H Blood Pressure 92/58 L Blood Pressure [Le ft Upper Arm] 102/67 Pulse Oximetry 91 97 86 L Oxygen Delivery Me thod Nasal Cannula OxyMask OxyMask Oxygen Flow Rate 2 2 2 05/27/24 02:30 05/27/24 02:31 05/27/24 02:41 Temperature Pulse Rate 114 H 115 H 128 H Pulse Rate [Pulse Oximeter] Respiratory Rate 23 23 22 Blood Pressure 91/59 L 91/73 Blood Pressure [Le ft Upper Arm] Pulse Oximetry 94 93 95 Oxygen Delivery Me thod OxyMask OxyMask OxyMask Oxygen Flow Rate 2 2 2 05/27/24 02:45 05/27/24 02:51 05/27/24 03:01 Temperature 97.8 F Pulse Rate 101 H 96 99 Pulse Rate [Pulse Oximeter] Respiratory Rate 22 21 22 Blood Pressure 94/71 88/69 L Blood Pressure [Le ft Upper Arm] Pulse Oximetry 96 92 93 Oxygen Delivery Me thod OxyMask OxyMask OxyMask Oxygen Flow Rate 2 2 2 05/27/24 03:11 05/27/24 03:21 05/27/24 03:31 Temperature Pulse Rate 104 H 103 H 99 Pulse Rate [Pulse Oximeter] Respiratory Rate 23 22 22 Blood Pressure 91/45 L 97/71 101/71 Blood Pressure [Le ft Upper Arm] Pulse Oximetry 95 93 93 Oxygen Delivery Me thod OxyMask OxyMask OxyMask Oxygen Flow Rate 2 2 2 05/27/24 03:40 Temperature Pulse Rate 105 H Pulse Rate [Pulse Oximeter] Respiratory Rate 20 Blood Pressure 94/82 Blood Pressure [Le ft Upper Arm] Pulse Oximetry 94 Oxygen Delivery Me thod OxyMask Oxygen Flow Rate 2 Documenting provider has reviewed patient's vital signs: yes Course Vital Signs Vital signs: Initial Vital Signs Pulse Oximetry 92 05/27/24 00:38 Oxygen Delivery Method Room Air 05/27/24 00:38 Vital Signs Pulse Oximetry 92 05/27/24 00:38 Oxygen Delivery Method Room Air 05/27/24 00:38 Temperature 97 F L 05/27/24 04:03 Pulse Rate 109 H 05/27/24 04:03 Respiratory Rate 20 05/27/24 04:03 Blood Pressure 94/63 05/27/24 04:03 Pulse Oximetry 90 05/27/24 04:03 Oxygen Delivery Method OxyMask 05/27/24 04:03 Oxygen Flow Rate 2 05/27/24 04:03 Medications Administered Medications: Generic Name Dose Route Start Last Admin Trade Name Freq PRN Reason Stop Dose Admin Epinephrine HCl 0.3 mg 05/27/24 01:13 05/27/24 01:22 Epinephrine 0.3 Mg Pen IM 0.3 mg ONCE PRN Administration Anaphylaxis Discontinued Medications Generic Name Dose Route Start Last Admin Trade Name Freq PRN Reason Stop Dose Admin Diphenhydramine HCl 25 mg 05/27/24 01:11 05/27/24 01:23 Diphenhydramine 50 Mg/Ml Inj IVP 05/27/24 01:12 25 mg ONCE ONE Administration Sodium Chloride 500 mls @ 500 mls/hr 05/27/24 00:39 05/27/24 01:46 0.9 % Sodium Chloride 500 Ml IV 05/27/24 01:38 Not Given .Q1H ONE Factor Xa(Recombinant) Inactiv 40 mls @ 160 mls/hr 05/27/24 01:43 05/27/24 03:52 -zhzo 400 mg/ IV Miscellaneous IV 05/27/24 01:44 Not Given Supplies ONCE ONE Sodium Chloride 1,000 mls @ 1,200 mls/hr 05/27/24 01:51 05/27/24 01:55 0.9 % Sodium Chloride 1000 Ml IV 05/27/24 02:40 Infused .Q50M ONE Infusion Sodium Chloride 1,000 mls @ 1,200 mls/hr 05/27/24 01:52 05/27/24 01:55 0.9 % Sodium Chloride 1000 Ml IV 05/27/24 02:41 Infused .Q50M ONE Infusion Lorazepam 0.5 mg 05/27/24 00:50 05/27/24 01:00 Lorazepam 2 Mg/Ml Inj IVP 05/27/24 00:51 0.5 mg ONCE ONE Administration Methylprednisolone Sodium Succinate 93.75 mg 05/27/24 01:11 05/27/24 01:22 Methylprednisolone Sod Succ 62.5 Mg/Ml (125) IVP 05/27/24 01:12 93.75 mg ONCE ONE Administration Medical Decision Making MDM Narrative Medical decision making narrative: I did meet EMS in the garage has requested and accompanied to CT. could be some infectious etiology contributing here but lateralizing symptoms suggest against that. She is not globally weak otherwise. Seizure? Does appear to be experiencing cerebrovascular event. Underlying history of atrial fibrillation. Proceeding with standard acute stroke protocol with CT head and CT angio of head and neck. Spoke with Stroke Neuro pending availability of images to them. By my independent read of CT head looks to show only senescent changes without acute abnormality, no bleed. While in CT imaging is noted to be increasingly agitated. I go to reassess. Morning moving her head. Does appear to be flexing the right leg a little bit now as well as moving her right hand. Is given half a mg of IV Ativan During conversation is returning to the room and is noted to be hypotensive 70s over 40s. I am also alerted of allergy to contrast dye. Review of records notes pharyngeal spasm and itch. Bolusing IV fluids and during assessment does appear to be laryngitic somewhat in breathing, tight with some mild chest congestion. Labored. No wheeze. Color is pale. Not able to obtain good oximetry readings. Extremities are cool. Trace equal radial pulses. Concern of progressive stroke symptoms but in particular concern that may be having a reaction to contrast dye with low blood pressures. Could also be reacting to Ativan which was was necessary to sedate somewhat while in imaging. In addition to fluid bolus have given diphenhydramine, Solu-Medrol and IM epinephrine injection. Blood pressure improved to a little over 100 systolic. Remains tachycardic. Chest x-ray by my read shows congestion and cardiomegaly. I am concerned that may have gotten a little fluid overloaded. Reluctant to diurese as pressure has improved. Appears to be oxygenating sufficiently. Blood sugar of 415 Study:?XRay-Chest CODE STROKE 1V PORTABLE-05/27/2024 1:32:35 AM Ordering Physician:Jayjay Tristan Final Report: Indication: Respiratory distress Technique: Single view of the chest Comparison: Chest radiograph performed 04/19/2024 Findings/Impression: Cardiomegaly and volume overload. Called to to inform family of current condition. Spoke initially to Michele Deng. 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 Partially visualized. Perhaps this has contributed to some of these neurological symptoms including dropping pressures possibly from effect on innervation in the area or cerebral ischemia otherwise? Does not appear to be entering carotids. Dissection I think takes treatment priority consideration at this point. Spoke to Stroke Neuro again once with read images. No major cerebrovascular event otherwise is appreciated. No large vascular thrombus apparent. Would not candidate for thrombolytics partly due to time since last known well and also since taking apixaban. Need more information about treating dissection this at this point. Have called to vascular surgery for more information to be able to share with family in the meantime are readying Andexxa with history of apixaban. Last dosing of apixaban looks to have been about 7:00 p.m. last night. Managed to speak with on-call vascular surgery, cardio thoracic surgery as well as special education science teacher at [employer]. In length discussion recommend against surgery noting likely very poor outcome. Study:?CT-Neck Angio Angio CODE STROKE W/95CC ISOVUE 370-05/27/2024 1:08:10 AM Ordering Physician:Jayjay Tristan Preliminary Report: Indication: Right-sided weakness, altered mental status Technique: CT angiogram of the head and neck following 95 mL Isovue 370 IV contrast. Multiplanar MIP images obtained. Comparison: None Findings: Preliminary report, full report to follow. 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 No prior examination is available for comparison, but the appearance of the dissection suggests an acute process. CTA head: No large vessel occlusion. There are multiple areas of [id number] vascular narrowing suggestive of atherosclerosis. 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 CTA neck: Mild irregularities of the bilateral cervical vertebral arteries without evidence of high-grade stenosis, appearance suggestive of fibromuscular dysplasia. No large vessel occlusion. No visualized cervical or vertebral dissection. Findings were communicated by telephone to Dr. Kun Cox at 0130 on 05/27/2024. Considered for further imaging of chest abdomen pelvis but with concern already of contrast allergy and not clearly stable as well as likely no further interventions to be done, choosing not to proceed with further vascular studies. Reassessment of Ms. Deng shows some improvement in status. Color has improved. Has reliably more tone in right arm and right leg. With eyes closed frequently now. Yawning. Residual sedation more clearly from medications now I think. Soft blood pressures but appear to be stabilizing. Andexxa has not been given as now no interventions are planned. Potentially could worsen undiagnosed CVA. Might consider again after MRI imaging if this is possible to be done in the morning. Not receiving aspirin or Plavix. Spoke to family again and confirming that would not want surgical intervention for this dissection. Likely declining aggressive ICU management as well as this would need transfer. Preferring comfort cares with some limited management perhaps. Maintaining DNR DNI Discussed with overnight hospitalist for admission. Confirming comfort care status again with family. Accepted for admission at this facility. Medical Records Medical records reviewed: Yes I reviewed the patient's medical records Lab Data Lab results reviewed: Yes I reviewed the patient's lab results Labs: Lab Results 05/27/24 Range/Units 00:35 WBC 10.38 (4.50-11.00) K/uL RBC 4.20 (4.00-5.20) m/uL Hgb 11.8 L (12.0-16.0) gm/dL Hct 37.8 (33.0-51.0) % MCV 90 (80-100) fL MCH 28 (26-34) pg MCHC 31 L (32-36) gm/dL RDW Coeff of Shawn 14.4 (11.5-15.5) % Plt Count 223 (140-440) K/uL Neut % (Auto) 73.9 H (42.0-72.0) % Lymph % (Auto) 16.8 L (20-44) % [place] % (Auto) 6.4 (0.0-11.0) % Eos % (Auto) 0.4 (0.0-7.0) % Baso % (Auto) 0.3 (0.0-3.0) % Neut # (Auto) 7.70 H (1.7-7.0) K/uL Lymph # (Auto) 1.70 (0.90-2.90) K/uL [place] # (Auto) 0.70 (0.00-0.90) K/UL Eos # (Auto) 0.04 (0.00-0.50) K/uL Baso # (Auto) 0.03 (0.00-0.30) K/uL Abs Immat Gran (auto) 0.23 (0.00-0.30) K/uL Imm/Tot Granulo (auto) 2.2 % INR 1.47 H (0.91-1.10) APTT 32 (23-33) Seconds Sodium 128 L (135-149) mmol/L Potassium 4.5 (3.6-5.1) mmol/L Chloride 96 (96-114) mmol/L Carbon Dioxide 15 L (20-32) mmol/L Anion Gap 17 H (7-15) mEq/L BUN 18 (7-30) mg/dL Creatinine 1.1 (0.5-1.5) mg/dL Estimated GFR 50 ml/min Glucose 415 H* (60-115) mg/dL Calcium 8.9 (8.4-10.6) mg/dL Critical Care Time Critical Care Time Critical Care Time: Yes Attestation: The patient required my highest level preparedness to intervene emergently and I personally spent this critical care time directly and personally managing the patient. This critical care time included: Obtaining a history; Examining the patient; Pulse oximetry; Ordering and reviewing of studies; Arranging urgent treatment with development of a management plan; Evaluation of patients response to treatment; Frequent reassessment discussions with other providers. This critical care time was performed to assess and manage the high probability of imminent life-threatening deterioration that could result in multiorgan failure. It was exclusive of separate billable procedures and treating other patients and teaching time. Total Critical Care Time in Minutes: 100 Discharge Plan Discharge Clinical Impression: Acute alteration in mental status, Transient cerebral ischemia, Aortic arch dissection Patient Disposition: Admitted As Observation Condition: Guarded
[2024-05-27 00:49] LABS: Basophils Absolute Auto 0.03 K/uL (0.00-0.30); Basophils Percent Auto 0.3 % (0.0-3.0); Eosinophils Absolute Auto 0.04 K/uL (0.00-0.50); Eosinophils Percent Auto 0.4 % (0.0-7.0); Hematocrit 37.8 % (33.0-51.0); Hemoglobin* 11.8 gm/dL (12.0-16.0); Immature Granulocytes Abs Auto 0.23 K/uL (0.00-0.30); Immature Granulocytes Pct Auto 2.2 %; Lymphocytes Percent Auto 16.8 % (20-44); Mean Corpuscular HGB Conc 31 gm/dL (32-36); Mean Corpuscular Hemoglobin 28 pg (26-34); Mean Corpuscular Volume 90 fL (80-100); Monocytes Percent Auto 6.4 % (0.0-11.0); Neutrophils Percent Auto 73.9 % (42.0-72.0); Platelet Count* 223 K/uL (140-440); RDW Coefficient of Variation % 14.4 % (11.5-15.5); White Blood Count* 10.38 K/uL (4.50-11.00)
[2024-05-27] MEDS: 0.9 % SODIUM CHLORIDE 1000 ml 1,000 ML 1200 ML IV ×2 (00:50)
[2024-05-27 00:53] LABS: Slide Review Reflex No
[2024-05-27 00:59] LABS: Chloride* 96 mmol/L (96-114); Potassium* 4.5 mmol/L (3.6-5.1); Sodium* 128 mmol/L (135-149)
[2024-05-27] MEDS: LORazepam 2 MG/ML inj 0.5 MG IVP (01:00)
[2024-05-27 01:02] LABS: Anion Gap 17 mEq/L (7-15); Blood Urea Nitrogen* 18 mg/dL (7-30); Calcium* 8.9 mg/dL (8.4-10.6); Carbon Dioxide* 15 mmol/L (20-32); Creatinine* 1.1 mg/dL (0.5-1.5); Estimated Glomerular Filt Rate 50 ml/min
[2024-05-27 01:03] LABS: Glucose* 415 mg/dL (60-115); INR 1.47 (0.91-1.10); Prothrombin Time 18.8 Seconds
[2024-05-27 01:04] LABS: Partial Thromboplastin Time* 32 Seconds (23-33)
--- OUTSIDE RECORDS SUMMARY | 2024-05-27 01:04 | XMS_ITS | Clinical Summary ---
Author Organization [facility] Address [place], [place] [address] Care Team Providers Care Plate Glass Installer Helper Name Role Phone Frannie Allison MD Primary Care Prov ider Tonya Norwood MD Unavailable [phone] Joie Magdaleno PharmD Unavailable [phone] Allergies Active Allergy Reactions Criticality Noted Date [...] off Fosamax 10/14 COVID-19 10/04/2022 Overview (10/05/2022): [facility] Emergency Room SBE (subacute bacterial [...] work Third agent: Yuri Ish Relationship: son [phone] Cell Patient has Advance Care Plan Documents [...] atrial fibrillation 11/06/2018 08/31/2021 Polyuria 10/26/2010 09/26/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 08/25/2010 10/05/2010 Overview [...] Department Care Team Description 04/19/2024 Orders Only [facility] Scanner 1 scan: (1-Ord) [facility], CHEST 1V PORTABLE , 04/19/2024 04/19/2024 [facility]phone [facility] [address] [place] [address] Frannie Allison MD Covid-19 Positive Result 03/05/2024 Orders Only [facility] Scanner 1 scan: (1-Ord) [facility], CT HEAD/BRAIN W/O CONTRAST, 03/05/2024 03/05/2024 Orders Only [facility] Scanner 1 scan: (1-Ord) [facility], CT CERVICAL SPINE WO CON, 03/05/2024 03/05/2024 [facility]phone [facility] [address] [place] [address] Frannie Allison MD Blood Pressure from Last 3 Months Immunizations Name Administration Dates Next Due AMB Influenza, IIV3 (Age >=3 years)(Flu Clinic Only) 12/29/2011 COVID-19 vaccine ([employer] 30mcg/0.3mL) JOSE LUIS ALVARADO 06/07/2020,05/17/2020 Influenza, [...] on file Legal Sex Female 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 Gender Identity Not on file Sexual Orientation [...] 36.5 C (97.7 F) 03/10/2021 10:57 AM COMPUTER RECYCLING WORKER Respiratory Rate 18 09/16/2020 10:07 AM CDT [...] history exists Medical Devices Implanted Type Area Chief Clinical Dietitian Device Identifier Shelf Expiration Date Model / Serial / Lot Valve Magna [id number] 21 - [id number] Implanted:Qty: 1 on 08/17/2010 at [facility] N/A: Aortic Valve [employer] Torie 10/27/2013 [id number] / [id number] / Procedures Procedure Name Priority Date/Time Associated Diagnosis Comments SCAN-RADIOLOGY REPORT 04/19/2024 12:00 AM COMPUTER RECYCLING WORKER SCAN-CT INTERPRETATION 4 12:00 AM COMPUTER RECYCLING WORKER SCAN-CT INTERPRETATION 4 12:00 AM COMPUTER RECYCLING WORKER XR DXA BONE DENSITY 2 SITES AXIAL Routine 09/22/2023 11:32 AM CDT Osteoporosis, unspecified osteoporosis type, unspecified pathological fracture presence from Last 3 Months or Most Recently Relevant to Health Maintenance Results * SCAN-RADIOLOGY REPORT (04/19/2024 12:00 AM COMPUTER RECYCLING WORKER) Anatomical Region Laterality Modality Other us Scanner OTHER Final Result * SCAN-CT INTERPRETATION (03/05/2024 12:00 AM COMPUTER RECYCLING WORKER) Only the most recent of2 resultswithin the [...] to assess therapeutic efficacy. Nedra Salinas PA-C [facility] 09/27/2023 Narrative 09/27/2023 1:35 PM CDT For Patients: Results are automatically released to your [facility] ([employer]) account once available, in compliance with federal regulations. This means that you may see your results before your provider has had a chance to review them. Please allow 2-3 business days for your provider to comment on the results. XR DXA Bone Mineral Density (BMD) EXAM LOCATION: [facility] [address] [facility] [id number] PATIENT NAME: Guadalupe Deng DATE OF : [...] two scanners are made by the same executive assistant to general counsel. PROCEDURE: Dual-energy x-ray absorptiometry performed with routine [...] Documents on File Type Date Recorded Patient Physical Scientist Expl anation POLST 02/07/2024 Healthcare Directive 07/29/2011 HEALTH CARE DIRECTIVE, [facility], 06/29/2011 * Full Code (Latest Code [...] 1:26 PM 08/13/2010 1:43 PM Care Teams Plate Glass Installer Helper Relationship Specialty Start Date End Date Frannie Allison MD [address] [place] [address] PCP - General Family Practice 03/09/12 Tonya Norwood MD [address] [place] [address] Consulting Physician Cardiovascular Disease 08/29/14 Joie Magdaleno PharmD [address] [place] [address] [place] [address] Pharmacist Medication Management Pharmacology 01/26/24 01/25/27
[2024-05-27] MEDS: EPINEPHrine 0.3 MG PEN IM (01:22)
[2024-05-27] MEDS: METHYLPREDNISOLONE SOD SUCC 62.5 MG/ML (125) 93.75 MG IVP (01:22)
[2024-05-27] MEDS: diphenhydrAMINE 50 MG/ML inj 25 MG IVP (01:23)
--- NOTE | 2024-05-27 05:24 | PC.NURSE ---
Shift note: Pt was brought to the floor at 0350 on admission bed from ED. Pt was conscious on admission but non-responsive. She was soiled with BM and required to be change immediately she was put to bed. Pt has extreme weakness to the right side of her body. Pt was reviewed by MD through [facility]. No orders put in yet as at the time of the report. She was on 2L of oxygen from ED and we maintained same level to keep the O2 above 90%. HR was 113 on admission, otherwise vitally stable. IV at left AC. Saline lock. No neuro change from baseline.
--- NOTE | 2024-05-27 06:41 | W.PM.TELEH&P ---
Telehealth- H&P: HPI History of Present Illness Date Seen: 05/27/24 Chief complaint: CVA Narrative: Guadalupe Deng is seen as an Interactive Telehealth visit. Guadalupe Deng is a 83 year old female With past medical history significant for dementia, TIA, A-fib on Eliquis, HTN JEET, who lives at assisted living was brought to the emergency department with right-sided weakness. Patient is currently unresponsive and history was obtained through medical record and ER provider. It appears that patient was last seen normal around 7:30 PM last night. She was checked again around 1130 or 12 AM and at that time was found to have altered mental status where she was not responding much. She also was noted to have marked weakness on the right leg and arm. Her blood sugar at the time was 450. She was transferred to the emergency department. She did have CT head and neck. Initially she was tested for stroke. During ER course she did drop her blood pressure to 70/40 and at that time she was given fluids and was also treated for possible contrast allergy with epi and Benadryl. Patient had extensive workup and treatment in the emergency department her initial lab work showed CBC was unremarkable. INR was 1.47, BMP showed hyponatremia with sodium 128, potassium 4.5, chloride 96, bicarb 15, anion gap 17, glucose 415. CT head showed chronic infarcts and senescent changes with no acute abnormality. 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 The appearance of the dissection suggest an acute process. CTA head was negative for any acute large vessel occlusion. There were multiple areas of mild to moderate vascular narrowing suggestive of atherosclerosis. CTA neck showed mild irregularities of the bilateral cervical vertebral arteries without evidence of high-grade stenosis. Patient at the time was responsive to sternal rub however was not communicating much. Unable to assess any further neuroexam. ER provider had discussed case with family, both sons who are POA's were in agreement to not transfer her for any further higher level care, no ICU level care. I called and discussed case with patient's son Jarvis. He confirms that patient is DNR/DNI. He also confirms that her they had discussed with the patient and she does not want any life-prolonging measures. He says given her mental status he is not agreeable to starting her on comfort measures only at this point. However clinically if she becomes more awake then they will reconsider starting her home meds. At this point they wish to continue with comfort measures only and to treat her agitation and pain with pain medication as needed. He says him and his brother have talked about it and they have also talked about this with the patient the mother. Review of Systems Narrative: Unable to obtain due to pts mental status and underlying dementia. [facility] Medical History (Updated 05/27/24 @ 07:46 by Abby Manrique MD) Colonic polyp ?K63.5 - Polyp of colon (ICD-10) Atrial fibrillation ?I48.91 - Unspecified atrial fibrillation (ICD-10) HTN (hypertension) ?I10 - Essential (primary) hypertension (ICD-10) Bicuspid aortic valve ?Q23.1 - Congenital insufficiency of aortic valve (ICD-10) Arthritis ?M19.90 - Unspecified osteoarthritis, unspecified site (ICD-10) Aortic stenosis ?I35.0 - Nonrheumatic aortic (valve) stenosis (ICD-10) Surgical History H/O vein stripping ?Z98.890 - Other specified postprocedural states (ICD-10) Hx of tonsillectomy ?Z90.89 - Acquired absence of other organs (ICD-10) Status post ORIF of fracture of ankle (10/21/18) ?Z98.890 - Other specified postprocedural states (ICD-10) ?Z87.81 - Personal history of (healed) traumatic fracture (ICD-10) 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 - Presence of prosthetic heart valve (ICD-10) Social History What is your current living situation?: I presently have a place to live Problems where you live: unable to answer Problems where you live details: NA In the past 12 months, utilities in danger of being shut off: unable to answer In past 12 months, lack of transportation kept you from medical appts, meetings, work, or getting things needed for daily living: unable to answer In the past 12 mos, have been you worried that your food would run out before you had money to buy more?: unable to answer In the past 12 mos, the food you bought just didn't last and you didn't have money to buy more?: unable to answer Highest level of school completed/degree received: don't know Non-prescribed substance use details: nishant How often does anyone, including family, friends and others, physically hurt you: unable to answer How often does anyone, including family, friends and others, insult or talk down to you: unable to answer How often does anyone, including family, friends and others, threaten you with harm: unable to answer How often does anyone, including family, friends and others, scream or curse at you: unable to answer Meds Home Medications and Allergies Home Medications ?Medication ?Instructions ?Recorded ?Confirmed ?Type atorvastatin 10 mg tablet 10 mg PO ONCE 05/23/22 03/05/24 History azithromycin 250 mg tablet 500 mg PO PRN 05/23/22 03/05/24 History glucosamine-chondroitin 500 mg-400 2 tab PO DAILY 05/23/22 03/05/24 History mg tablet (Cosamin DS) lisinopril 10 mg tablet 10 mg PO BID 05/23/22 03/05/24 History raloxifene 60 mg tablet 60 mg PO DAILY 05/23/22 07/30/23 History diltiazem HCl 120 mg 120 mg PO DAILY 07/30/23 03/05/24 History capsule,extended release 24 hr alendronate 70 mg tablet 70 mg PO 03/05/24 History apixaban 2.5 mg tablet (Eliquis) 2.5 mg PO BID 03/05/24 03/05/24 History pantoprazole 20 mg tablet,delayed 20 mg PO DAILY 03/05/24 03/05/24 History release sertraline 25 mg tablet 25 mg PO DAILY 03/05/24 03/05/24 History Allergies Allergy/AdvReac Type Severity Reaction Status Date / Time gadodiamide Allergy Intermediate itching Verified 05/27/24 01:11 Cephalosporins Allergy Mild Hives Verified 05/27/24 01:11 penicillin V Allergy Mild Rash Verified 05/27/24 01:11 amoxicillin AdvReac Rash Verified 05/27/24 01:11 cefuroxime (From Ceftin) AdvReac Hives Verified 05/27/24 01:11 diatrizoate meglumine AdvReac itching Verified 05/27/24 01:11 doxycycline AdvReac Nausea Verified 05/27/24 01:11 latex AdvReac Verified 05/27/24 01:11 contrast dye AdvReac Uncoded 05/27/24 01:11 Exam Narrative Exam Narrative: Physical Exam General: Vital signs reviewed. Pt is arousable to touch and voice. However she remains nonverbal and unable to follow any commands. Neuro: Noted to be moving left upper extremity. Unable to complete the full detailed neuroexam Const Vital Signs, click to edit/add: Vital Signs - 24 hr 05/27/24 00:38 05/27/24 00:38 05/27/24 01:00 Temperature 97.6 F Pulse Rate Pulse Rate [Left Pulse Oximeter] Pulse Rate [Pulse Oximeter] 133 H Respiratory Rate 18 Blood Pressure Blood Pressure [Left Upper Arm] 79/42 L Blood Pressure [Right Arm] Pulse Oximetry 92 92 92 Oxygen Delivery Method Room Air Room Air Oxygen Flow Rate 05/27/24 01:34 05/27/24 02:16 05/27/24 02:21 Temperature Pulse Rate 117 H 132 H Pulse Rate [Left Pulse Oximeter] Pulse Rate [Pulse Oximeter] 122 H Respiratory Rate 22 23 27 H Blood Pressure 92/58 L Blood Pressure [Left Upper Arm] 102/67 Blood Pressure [Right Arm] Pulse Oximetry 91 97 86 L Oxygen Delivery Method Nasal Cannula OxyMask OxyMask Oxygen Flow Rate 2 2 2 05/27/24 02:30 05/27/24 02:31 05/27/24 02:41 Temperature Pulse Rate 114 H 115 H 128 H Pulse Rate [Left Pulse Oximeter] Pulse Rate [Pulse Oximeter] Respiratory Rate 23 23 22 Blood Pressure 91/59 L 91/73 Blood Pressure [Left Upper Arm] Blood Pressure [Right Arm] Pulse Oximetry 94 93 95 Oxygen Delivery Method OxyMask OxyMask OxyMask Oxygen Flow Rate 2 2 2 05/27/24 02:45 05/27/24 02:51 05/27/24 03:01 Temperature 97.8 F Pulse Rate 101 H 96 99 Pulse Rate [Left Pulse Oximeter] Pulse Rate [Pulse Oximeter] Respiratory Rate 22 21 22 Blood Pressure 94/71 88/69 L Blood Pressure [Left Upper Arm] Blood Pressure [Right Arm] Pulse Oximetry 96 92 93 Oxygen Delivery Method OxyMask OxyMask OxyMask Oxygen Flow Rate 2 2 2 05/27/24 03:11 05/27/24 03:21 05/27/24 03:31 Temperature Pulse Rate 104 H 103 H 99 Pulse Rate [Left Pulse Oximeter] Pulse Rate [Pulse Oximeter] Respiratory Rate 23 22 22 Blood Pressure 91/45 L 97/71 101/71 Blood Pressure [Left Upper Arm] Blood Pressure [Right Arm] Pulse Oximetry 95 93 93 Oxygen Delivery Method OxyMask OxyMask OxyMask Oxygen Flow Rate 2 2 2 05/27/24 03:40 05/27/24 04:03 05/27/24 04:03 Temperature 97 F L Pulse Rate 105 H Pulse Rate [Left Pulse Oximeter] 109 H Pulse Rate [Pulse Oximeter] Respiratory Rate 20 20 20 Blood Pressure 94/82 Blood Pressure [Left Upper Arm] Blood Pressure [Right Arm] 94/63 Pulse Oximetry 94 90 90 Oxygen Delivery Method OxyMask OxyMask OxyMask Oxygen Flow Rate 2 2 2 Hospitalist - H&P: Result Labs Labs: Short CBC 05/27/24 Range/Units 00:35 WBC 10.38 (4.50-11.00) K/uL Hgb 11.8 L (12.0-16.0) gm/dL Hct 37.8 (33.0-51.0) % Plt Count 223 (140-440) K/uL BMP 05/27/24 00:35 Sodium 128 L Potassium 4.5 Chloride 96 Carbon Dioxide 15 L BUN 18 Creatinine 1.1 Glucose 415 H* Calcium 8.9 Assessment and Plan Assessment and plan (1) Aortic arch dissection: Status: Acute (2) Transient cerebral ischemia: Status: Acute (3) Acute alteration in mental status: Status: Acute (4) Atrial fibrillation: Status: Acute Plan Patient with past medical history significant for dementia, A-fib on Eliquis who initially presented to emergency department with altered mental status, right-sided weakness. She was found to have type a aortic dissection. ER provider has discussed case with neuro, cardiothoracic teams who have all agreed the patient was not a great surgical candidate. Patient's family including both son are in agreement with comfort measures only. They said they have discussed with the patient and she would not want any life-prolonging measures. I confirmed with Jarvis and at this point he is agreeable to not resuming any home medications. He is agreeable to starting medications to keep her comfortable only. He says this is what the patient wanted for herself. He says him and his brother are both in agreement with comfort measures only at this point.\ After confirming with the family, comfort measures only were started. Home medications have not been resumed. Hold off any further blood work and vital checks. Total Time Spent Total Time Spent: >55 Telehealth: Statement Statement Telehealth Visit: Today's History and Physical is provided via interactive telehealth by Abby Manrique MD.? Patient is located at [facility].? Provider is located at [facility].? Nursing staff assisted with the patient's exam. The visit being done today meets criteria for a telehealth visit and the patient or patient?s parent/guardian is aware the visit is a telehealth visit. Camera Start Time: 05:06 Camera End Time: 05:12
[2024-05-27] MEDS: MORPHINE 4 MG/ML INJ 1 MG IVP (12:32)
[2024-05-27] MEDS: SODIUM CHLORIDE 0.9 % (FLUSH) 10 ML SYRINGE 5 ML IVF ×2 (12:40→23:32)
--- NOTE | 2024-05-27 15:15 | W.PM.CROSSCO ---
Subjective Subjective Interval history: Guadalupe woke since coming to the floor, but speech is garbled and she is generally very weak and falls over to her left side when the nurses try to sit her up in bed. Staff reports she Herbert family is here, including her two sons, who are her POAs. They agree that she would not want surgery or aggressive interventions. They would like her to be comfort cares. Objective Objective Data Details: Awake, garbled, nonintelligable speech. Leans to left. Significant generalized weakness. Restless. Assessment and Plan Assessment and plan (1) Aortic arch dissection: Status: Acute (2) Transient cerebral ischemia: Status: Acute (3) Acute alteration in mental status: Status: Acute (4) Atrial fibrillation: Status: Acute Plan Continue comfort cares started in ER. Put in woodson for comfort. If not imminent by Tuesday, may need discharge planning for hospice.
--- NOTE | 2024-05-27 19:20 | PC.NURSE ---
End of shift- Pt pleasant but unable to follow commands. Comfort cares. Pt awoke to verbal stimuli this morning and responded to how are you? with not too good. Tachycardic. Both inspiratory and expiratory rhonchi noted throughout lung leigh. Turned and repositioned only this shift. Laws catheter inserted per MD order. Family at bedside and appear loving and supportive. Report to JOSÉ Tadeo.
--- NOTE | 2024-05-28 06:30 | PC.NURSE ---
Shift note: Pt alert, was talkative about her time as an [employer]. Denies pain. Turned and repositioned with a 2 assist. Laws patent. Pt up to the BSC 2 assist, 1 BM overnight. Frequent oral cares and small sips of water overnight.
[2024-05-28 07:00] VITALS: RESP 20
[2024-05-28] MEDS: MORPHINE 4 MG/ML INJ 1 MG IVP (07:33)
[2024-05-28] MEDS: SODIUM CHLORIDE 0.9 % (FLUSH) 10 ML SYRINGE 5 ML IVF (07:35)
[2024-05-28] MEDS: fentaNYL 12 mcg/hr PATCH 1 PATCH TRANSDERMA (08:22)
[2024-05-28] MEDS: LORazepam 2 MG/ML inj IVP (08:23)
--- NOTE | 2024-05-28 12:32 | P.DS_ITS ---
Discharge Sum: Prov Provider Time Seen by Provider: 11:00 Date Seen: 05/28/24 Primary care physician: Frannie Allison MD Pronouncing clinician: Angela Lee Discharge Sum: Diag PCOD Cause of : Aortic arch dissection Contributing Factors (1) Aortic arch dissection: (2) Transient cerebral ischemia: (3) Acute alteration in mental status: (4) Atrial fibrillation: Discharge Sum: Summary Date and Time Date of admission: 05/27/24 03:46 Date of : 05/28/24 Time of : 11:00 Summary Details: Per H&P Guadalupe Deng is seen as an Interactive Telehealth visit. Guadalupe Deng is a 83 year old female With past medical history significant for dementia, TIA, A-fib on Eliquis, HTN JEET, who lives at assisted living was brought to the emergency department with right-sided weakness. Patient is currently unresponsive and history was obtained through medical record and ER provider. It appears that patient was last seen normal around 7:30 PM last night. She was checked again around 1130 or 12 AM and at that time was found to have altered mental status where she was not responding much. She also was noted to have marked weakness on the right leg and arm. Her blood sugar at the time was 450. She was transferred to the emergency department. She did have CT head and neck. Initially she was tested for stroke. During ER course she did drop her blood pressure to 70/40 and at that time she was given fluids and was also treated for possible contrast allergy with epi and Benadryl. Patient had extensive workup and treatment in the emergency department her initial lab work showed CBC was unremarkable. INR was 1.47, BMP showed hyponatremia with sodium 128, potassium 4.5, chloride 96, bicarb 15, anion gap 17, glucose 415. CT head showed chronic infarcts and senescent changes with no acute abnormality. 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 The appearance of the dissection suggest an acute process. CTA head was negative for any acute large vessel occlusion. There were multiple areas of mild to moderate vascular narrowing suggestive of atherosclerosis. CTA neck showed mild irregularities of the bilateral cervical vertebral arteries without evidence of high-grade stenosis. Patient at the time was responsive to sternal rub however was not communicating much. Unable to assess any further neuroexam. ER provider had discussed case with family, both sons who are POA's were in agreement to not transfer her for any further higher level care, no ICU level care. I called and discussed case with patient's son Jarvis. He confirms that patient is DNR/DNI. He also confirms that her they had discussed with the patient and she does not want any life-prolonging measures. He says given her mental status he is not agreeable to starting her on comfort measures only at this point. However clinically if she becomes more awake then they will reconsider starting her home meds. At this point they wish to continue with comfort measures only and to treat her agitation and pain with pain medication as needed. He says him and his brother have talked about it and they have also talked about this with the patient the mother. 05/27/24 Guadalupe woke since coming to the floor, but speech is garbled and she is generally very weak and falls over to her left side when the nurses try to sit her up in bed. Staff reports she Herbert family is here, including her two sons, who are her POAs. They agree that she would not want surgery or aggressive interventions. They would like her to be comfort cares. 05/28/24 Guadalupe was awake this morning, but uncomfortable and agitated for which she was given medications for comfort. She responded well to these and was resting comfortably in bed. When staff checked on her at 11:00 a.m., she was unresponsive and pulseless. I was immediately notified and went to examine her. One of her sons, Yuri, and [id number] came to visit shortly afterward while I was just about to call to notify them. Additional Data Confirmation of as documented by pronouncing clinician: no pulse, no respirations, no heart sounds and pupils fixed and dilated Family: at bedside and contacted Attending/PCP notified?: No Attending physician: Abby Manrique MD Was code activated?: No Autopsy requested?: No cigarette package examiner notified?: No Organ bank notified?: Yes Hospice patient?: No
--- NOTE | 2024-05-28 14:52 | PC.NURSE ---
. Patient admin. PRN morphine x1, Ativan x1 and fent. patch applied to left shoulder. Patient comfortable showing no signs of pain. Patient peacefully at 1100. Family notified at bedside. Donor hotline called at [phone]. Ref#[id number] Radhika. Patient did not qualify for donation d/t age. Fent patch removed and discarded in adair bin in med room. Patient's 2 IV removed and catheter removed tip intact. [facility] picked up body at 1244.
== END 2024-05-28 12:44 | disposition expired ==
LOC: ED 03:45 → MEDSURG 03:46
PROVIDERS: Admitting Provider Internal Medicine; Emergency Provider Family Medicine; PCP Family Medicine; Visit Provider Internal Medicine
DX: I71.011 Dissection of aortic arch (principal); G45.9 Transient cerebral ischemic attack, unspecified; R41.82 Altered mental status, unspecified; I48.91 Unspecified atrial fibrillation; R29.818 Other symptoms and signs involving the nervous system; R29.810 Facial weakness
CPT/HCPCS: 36415; 51701; 70450; 70496; 70498; 71045; 80048; 81001; 85025; 85610; 85730; 93005; 94761; 96361; 96374; 96375; 96376; 99284; 99291; 99292; A9270; G0378; J0171; J1200; J2060; J2270; J2919; J7030; Q9967